=== PATIENT | male | born 1960 | race African-American/Black ===

== ENCOUNTER 2020-06-29 14:29 | Observation (INO) | payer OTHER, SELFPAY ==
[2020-06-29] VITALS (8 sets, daily range): BP systolic 127–175; BP diastolic 78–113; PULSE 75–106; RESP 16–20; TEMP 36.5–36.7; O2SAT 96–99; BMI 29.2; BMI 34.2
--- NOTE | 2020-06-29 14:42 | CT_ITS ---
Procedure: CT ABDOMEN PELVIS W CON Referring Doctor: Vikas Conde Patient Age:60Y CLINICAL INDICATION: ABD PAIN rectal bleeding History of prostate cancer COMPARISON: CT ABDPELW/O CT ABD PELVIS W/O CONTRAST from 10/08/2016 CT ABDPELW/O CT ABD PELVIS W/O CONTRAST from 06/07/2017 TECHNIQUE: IV contrast-75 cc Isovue 370 injected no oral contrast utilized. The Axial images obtained with sagittal and coronal reformats. All CT scans at the facility use one or more dose reduction, viz: automated exposure control, ma/kV adjustment per patient size (including targeted exams where dose is matched to indication, i.e. head), or iterative reconstruction technique. FINDINGS: Lower thorax: No acute finding ABDOMEN: Liver: No masses or biliary dilatation. 17 mm round low-density area the left lobe near its junction with the right lobe, axial image 26. I believe was present on 2017 studies with little change, thus favor likely a benign entity. Gallbladder: Surgically removed Common duct normal diameter with no stone evident s. Pancreas: No masses or peripancreatic fluid collections. Spleen: Borderline splenomegaly with spleen approximate 14 cm in length but with fairly normal AP dimension Adrenals: unremarkable Kidneys/ureters: Multiple modest size benign-appearing renal cysts bilaterally most notable at the left kidney Left kidney: Upper pole 20 mm and 16 mm cyst; midportion 20 mm cyst anteriorly and 24 mm cyst posteriorly; smaller cysts are seen at the lower pole Right kidney a 16 mm cyst off the lower pole with some very tiny barely evident cyst elsewhere. There may be a just over 1 mm nonobstructive calculus at upper pole axial image 48 Tiny metallic radiopaque markers or seeds at region of prostate, new since 2017 Bladder: Mild diffuse bladder wall thickening. Could reflect a cystitis-warrants correlation with urinalysis. ------- GI tract Stomach upper normal wall thickness at stomach most likely reflects lack of distension. Duodenal loop of satisfactory. Small-bowel. Moderate fluid throughout the small bowel with scattered small air-fluid levels but nonspecific but Appendix identified and normal. Terminal ileum unremarkable. Large bowel. Areas of upper normal wall thickness at the colon particularly here at the right colon but most likely reflects lack of distension. Colonic diverticulosis. Scattered diverticuli are seen throughout the colon including transverse colon, descending. colon and rectosigmoid. No evidence acute diverticulitis Peritoneum: No abnormal fluid collections. No obvious inflammatory changes. No free air. Lymph nodes: No enlarged lymph nodes apparent. Vasculature: No evidence of abdominal aortic aneurysm. No retroperitoneal hemorrhage evident. Bones: No blastic metastatic lesions There are progressive degenerative changes spine a specifically note additional sclerosis and subchondral cystic changes about the narrowed L5/S1 disc and L4/5 disc Progressive degenerative subchondral cystic changes about degenerated joints hips Soft tissues. A 10 mm nodule is seen subcutaneous tissues overlying the right abdominal wall axial image 63 IMPRESSION: 1.. Diffuse bladder wall thickening. Could reflect cystitis-warrants correlation urinalysis 2. Metallic seeds or markers region of prostate reflecting form of radiation prostate cancer therapy (which could also conceivably contribute to bladder wall thickening but). No associated pelvic or retroperitoneal adenopathy. 3. Note 17 mm round low-density area near junction of left and a right lobe of liver.Tend to favor this is a benign entity but may benefit from follow-up. Similar. Smaller area was seen on ol
--- NOTE | 2020-06-29 14:58 | HMH.EDGENADL ---
ED Disposition Clinical Impression: Rectal bleeding Disposition: Admitted as Observation Condition on Discharge: Good Referrals: Gibson Delgadillo MD [Primary Care Provider] - - Critical Care Critical Care Time: No Attestation: On 06/29/20, the high probability of a clinically significant, sudden or life threatening deterioration of the following system(s) required my full and direct attention, intervention and personal management. The time I documented below is in addition to time spent performing reported procedures but includes the following listed in this critical care notation. Medical Decision Making - Seevrino Inquiry Pt receiving controlled substance: Yes Severino was queried for this patient: No Reason not queried -: Emergent pt cond-no time Risks and benefits of using a controlled substance: were not discussed with pt by me Vital Signs: 06/29/20 14:29 06/29/20 14:50 06/29/20 15:02 Temperature 98 F Temperature Source Oral Pulse Rate [Radial] 94 H 106 H 94 H Respiratory Rate 18 20 18 Blood Pressure [Right Arm] 175/113 H 175/112 H 143/96 H Blood Pressure Mean [Right Arm] 133 133 111 Blood Pressure Source [Right Arm] Automatic Cuff Blood Pressure Position [Right Arm] Sitting Sitting 02 Sat by Pulse Oximetry 98 98 98 Oxygen Delivery Method Room Air 06/29/20 16:30 06/29/20 17:05 Temperature Temperature Source Pulse Rate [Radial] 86 81 Respiratory Rate 20 18 Blood Pressure [Right Arm] 134/83 127/91 H Blood Pressure Mean [Right Arm] 100 103 Blood Pressure Source [Right Arm] Automatic Cuff Automatic Cuff Blood Pressure Position [Right Arm] Sitting Sitting 02 Sat by Pulse Oximetry 96 97 Oxygen Delivery Method Room Air - Lab Data Lab Results 06/29/20 14:45: WBC 3.9 L, RBC 4.80, Hgb 15.0, Hct 43.2, MCV 90.1, MCH 31.2, MCHC 34.6, RDW 13.3, Plt Count 213, MPV 7.6, Neut % (Auto) 50.0, Lymph % (Auto) 41.1, [place] % (Auto) 7.2, Eos % (Auto) 1.0, Baso % (Auto) 0.7, Neut # (Auto) 2.0, Lymph # (Auto) 1.6, [place] # (Auto) 0.3, Eos # (Auto) 0.0, Baso # (Auto) 0.0 06/29/20 14:45: Sodium 139, Potassium 4.6, Chloride 101, Carbon Dioxide 30, Anion Gap 12.6, BUN 23 H, Creatinine 1.30 H, Estimated Creat Clear 79, Estimated GFR 56 L, Est GFR ( Amer) 68, Glucose 106 H, Calcium 10.6 H, Total Bilirubin 0.7, AST 37, ALT 37, Alkaline Phosphatase 155 H, Total Protein 10.1 H, Albumin 4.9, Globulin 5.2 H, Albumin/Globulin Ratio 0.9 L, Amylase 96, Lipase 126 06/29/20 15:08: Stool Occult Blood Negative 06/29/20 15:20: Urine Color Yellow, Urine Appearance Clear, Urine pH 6.0, Ur Specific [place] 1.025, Urine Protein 2+, Urine Glucose (UA) Negative, Urine Ketones Negative, Urine Blood Trace-i, Urine Nitrate Negative, Urine Bilirubin Negative, Urine Urobilinogen 0.2, Ur Leukocyte Esterase Negative, Urine WBC Occasional, Ur Squamous Epith Cells Occasional, Urine Bacteria Trace Result diagrams: 06/29/20 14:45 06/29/20 14:45 Orders (Tests/Meds): ED MEDICATIONS Discontinued Medications Generic Name Dose Route Start Last Admin Trade Name Freq PRN Reason Stop Dose Admin Iopamidol 75 ml 06/29/20 15:41 06/29/20 15:41 Iopamidol-370 (76%);100ml Bottle IV 06/29/20 15:42 75 ml ONCE ONE Administration Morphine Sulfate 4 mg 06/29/20 15:10 06/29/20 15:22 Morphine 4mg/Ml Syringe IV 06/29/20 15:11 4 mg ONCE ONE Administration Ondansetron HCl 4 mg 06/29/20 15:10 06/29/20 15:22 Ondansetron 4mg/2ml Vial IV 06/29/20 15:11 4 mg ONCE ONE Administration Sodium Chloride 10 ml 06/29/20 15:41 06/29/20 15:41 Sodium Chloride 0.9% 10ml Syr (Rad Only) IV 06/29/20 15:42 10 ml ONCE ONE Administration ORDERS Category Date Time Status CT abdomen pelvis w con Stat Cat Scan 06/29/20 14:42 Taken Covid-19 IgG/IgM ([facility]) Routine Lab 06/29/20 17:47 Ordered Diarrhea 6-11 Panel, Cdiff PCR Stat Lab 06/29/20 15:14 Ordered - CT Data CT Scan: Abdomen, Pelvis Time Received: 16:15 (vRad fa
[2020-06-29 14:59] LABS: Basophils % 0.7 % (0.1-2.0); Hematocrit 43.2 % (42.0-52.0); Lymphocytes # 1.6 K/mm3 (0.7-4.5); Lymphocytes % 41.1 % (10-50); Mean Corpuscular HGB Conc 34.6 g/dL (31.8-35.4); Mean Corpuscular Hemoglobin 31.2 pg (27.0-31.2); Mean Corpuscular Volume 90.1 fl (80-94); Mean Platelet Volume 7.6 fl (7.4-10.4); Monocytes # 0.3 K/mm3 (0.1-1.0); Monocytes % 7.2 % (1.7-9.3); Platelet Count 213 K/mm3 (142-424); Red Cell Distribution Width 13.3 % (11.5-17.5); White Blood Count 3.9 K/mm3 (4.8-10.8)
[2020-06-29 15:07] LABS: Chloride 101 mmol/L (98-107); Potassium 4.6 mmoL/L (3.5-5.1); Sodium 139 mmol/L (136-145)
[2020-06-29 15:09] LABS: Amylase 96 U/L (30-110); Blood Urea Nitrogen 23 mg/dl (9-20); Creatinine Clearance Estimated 79 mL/min (50-200); Estimated Glomerular Filt Rate 56 ml/min (>60); GFR (African American) 68 ML/MIN (>60)
[2020-06-29 15:10] LABS: Alanine Aminotransferase 37 U/L (12-78); Albumin Level 4.9 g/dl (3.5-5.0); Albumin/Globulin Ratio 0.9 (1.1-1.8); Alkaline Phosphatase 155 U/L (38-126); Anion Gap 12.6 mEq/L (5-15); Aspartate Amino Transferase 37 U/L (17-59); Bilirubin,Total 0.7 mg/dl (0.2-1.3); Calcium 10.6 mg/dl (8.4-10.2); Carbon Dioxide 30 mmol/L (22.0-30.0); Globulin 5.2 g/dL (1.3-3.2); Glucose 106 mg/dl (74-100); Lipase 126 U/L (23-300); Total Protein,Serum 10.1 g/dl (6.3-8.2)
[2020-06-29 15:35] LABS: Microscopic, Urine URINE MICROSCOPIC (MICROSCOPIC)
[2020-06-29 15:36] LABS: Appearance,Urine CLEAR (Clear); Bilirubin,Urine Negative (Negative); Blood, Urine TRACE-I (Negative); Color,Urine YELLOW (Yellow); Glucose,Urine (UA) Negative (Negative); Ketones,Urine Negative (Negative); Leukocyte Esterase,Urine Negative (Negative); Nitrate,Urine Negative (Negative); Protein,Urine 2+ (Negative); Specific Gravity, Urine 1.025 (1.005-1.030); Urobilinogen,Urine 0.2 EU/dl (0.2)
[2020-06-29 15:55] LABS: Occult Blood,Stool Negative (Negative)
[2020-06-29 16:11] LABS: Bacteria,Urine Trace /lpf; Squamous Epithelial Cell,Urine Occasional #/hpf (0-5); WBC,Urine Occasional #/hpf (0-3)
--- NOTE | 2020-06-29 16:25 | PC.NURSE ---
FAMILY AT BEDSIDE UPDATED ON PLAN OF CARE
--- NOTE | 2020-06-29 17:51 | PC.NURSE ---
Dr Conde spoke with Dr Koehler
--- NOTE | 2020-06-29 19:29 | P.CONPHA_ITS ---
[facility] Pharmacy VTE Monitoring - Patient Demographics Admission date: 06/29/20 Report Date: 06/29/20 Time: 19:29 Allergies/Adverse Reactions: Patient Allergies Penicillins [PENICILLINS] Allergy (Intermediate, Verified 06/29/20 18:14) I-RASH Height: 1.8 m Weight: 95.254 kg Patient Problems: Current Active Problems Rectal bleeding (Acute) - VTE Risk Labs: VTE Related Lab Results Hgb 15.0 g/dL (14.1-18.0) 06/29/20 14:45 Hct 43.2 % (42.0-52.0) 06/29/20 14:45 Plt Count 213 K/mm3 (142-424) 06/29/20 14:45 BUN 23 mg/dl (9-20) H 06/29/20 14:45 Creatinine 1.30 mg/dl (0.66-1.25) H 06/29/20 14:45 Estimated Creat Clear 79 mL/min (50-200) 06/29/20 14:45 Clinical Trial Participant: No - Prophylaxis VTE Prophylaxis Ordered?: Yes Types of VTE Prophylaxis: TEDS Knee High
[2020-06-29 19:49] LABS: Coronavirus 19 IgG Antibody Negative (Negative); Coronavirus 19 IgM Antibody Negative (Negative)
--- NOTE | 2020-06-29 20:18 | PC.NURSE ---
PT ARRIVED TO FLOOR AT 2013
--- NOTE | 2020-06-29 21:42 | PC.NURSE ---
unable to complete med rec due to pt unable to tell what meds he is on
[2020-06-30] VITALS (15 sets, daily range): BP systolic 90–147; BP diastolic 49–95; PULSE 63–86; RESP 18–22; TEMP 36.2–36.8; O2SAT 93–99; BMI 34.2
--- NOTE | 2020-06-30 04:33 | PC.NURSE ---
Pt A&OX4. lungs CTA. pt NPO for consult this AM. pt reports no BM or rectal bleeding since coming to floor. pt has been medicated for pain x2 per MAR this shift.
--- NOTE | 2020-06-30 07:12 | HMH.GSCON ---
*Admission Date: 06/29/20 *Reason for consult:: Blood per rectum *History of present illness: This is a 60-year-old gentleman seen in consultation from the service of Dr. Delgadillo regarding bright red blood per rectum. He presented overnight to the emergency department after noticing what he describes as 3 episodes of blood in the toilet. Initial descriptions were apparently of a fairly large amount; however, he currently describes a small amount of blood 3 different times . His initial evaluation included a CBC and an occult blood study. His hemoglobin was 15 and his occult blood study was negative. He also describes sharp and crampy pain throughout the mid abdomen. He states that has been quite a few years since his last colonoscopy. Review of Systems - Constitutional Denies chills - Eyes Denies change in vision - ENT Denies difficulty swallowing - *Cardiovascular Denies chest pain - *Respiratory Denies cough - *Gastrointestinal Reports abdominal pain, Reports bright, red blood in stools - *Genitourinary Denies blood in urine - *Musculoskeletal Denies numbness - Integumentary/Breasts Denies new lesions - *Neurologic Denies confusion - Psychiatric Denies anxiety - Endocrine Denies cold intolerance - Hematologic/Lymphatic Denies easy bleeding - Allergic/Immunologic Denies wheezing [facility] History Medical History: Reports:: Cancer (prostate), Diabetes Mellitus Type 2, Hypertension Denies:: Diabetes Mellitus Type 1 *Have you ever received a pneumonia vaccine?: Yes *Have you received a flu vaccine this season?: Yes Other Surgeries: Yes: Cholecystectomy, Hernia Repair - *Social History Smoking Status: Current every day smoker # Packs/Day (cigarettes): 1 Alcohol Intake: former Alcohol Intake Frequency:: other Substance Use Type: marijuana, crack/cocaine, heroin, methamphetamine Last Used Substance: unknown *Occupational Status:: retired, disabled Housing: apartment *Travel in the last 8 weeks: None Family Hx:: Unable to obtain Meds Home Medications Medication Instructions Recorded Confirmed Type Unobtainable 06/29/20 06/29/20 History Allergies Allergy/AdvReac Type Severity Reaction Status Date / Time Penicillins [PENICILLINS] Allergy Intermediate I-RASH Verified 06/29/20 18:14 Exam Vital signs and Labs for Last 24 Hours: Temp Pulse Resp BP Pulse Ox 98.1 F 86 18 144/89 H 97 06/30/20 04:00 06/30/20 04:00 06/30/20 04:00 06/30/20 04:00 06/30/20 04:00 Laboratory Results - last 24 hr 06/29/20 14:45: WBC 3.9 L, RBC 4.80, Hgb 15.0, Hct 43.2, MCV 90.1, MCH 31.2, MCHC 34.6, RDW 13.3, Plt Count 213, MPV 7.6, Neut % (Auto) 50.0, Lymph % (Auto) 41.1, [place] % (Auto) 7.2, Eos % (Auto) 1.0, Baso % (Auto) 0.7, Neut # (Auto) 2.0, Lymph # (Auto) 1.6, [place] # (Auto) 0.3, Eos # (Auto) 0.0, Baso # (Auto) 0.0 06/29/20 14:45: Sodium 139, Potassium 4.6, Chloride 101, Carbon Dioxide 30, Anion Gap 12.6, BUN 23 H, Creatinine 1.30 H, Estimated Creat Clear 79, Estimated GFR 56 L, Est GFR ( Amer) 68, Glucose 106 H, Calcium 10.6 H, Total Bilirubin 0.7, AST 37, ALT 37, Alkaline Phosphatase 155 H, Total Protein 10.1 H, Albumin 4.9, Globulin 5.2 H, Albumin/Globulin Ratio 0.9 L, Amylase 96, Lipase 126 06/29/20 14:45: SARS-CoV-2 IgG Ab (Rapid) Negative, SARS-CoV-2 IgM Ab (Rapid) Negative 06/29/20 15:08: Stool Occult Blood Negative 06/29/20 15:20: Urine Color Yellow, Urine Appearance Clear, Urine pH 6.0, Ur Specific [place] 1.025, Urine Protein 2+, Urine Glucose (UA) Negative, Urine Ketones Negative, Urine Blood Trace-i, Urine Nitrate Negative, Urine Bilirubin Negative, Urine Urobilinogen 0.2, Ur Leukocyte Esterase Negative, Urine WBC Occasional, Ur Squamous Epith Cells Occasional, Urine Bacteria Trace I & O for Last 24 hours: Intake & Output 06/27/20 06/28/20 06/29/20 06/30/20 11:59 11:59 11:59 11:59 Intake Total 1504 / 1504 Output Total 1150 / 1150 Balance 354 / 354
[2020-06-30 07:26] LABS: Eosinophils # 0.1 K/mm3 (0.0-0.4); Eosinophils % 1.9 % (0.1-12.0); Lymphocytes % 42.7 % (10-50); Mean Corpuscular HGB Conc 33.9 g/dL (31.8-35.4); Mean Corpuscular Hemoglobin 30.5 pg (27.0-31.2); Mean Platelet Volume 7.1 fl (7.4-10.4); Monocytes # 0.2 K/mm3 (0.1-1.0); Monocytes % 7.1 % (1.7-9.3); Neutrophils # 1.1 K/mm3 (1.8-7.8); Neutrophils % 47.3 % (37.0-80.0); Platelet Count 167 K/mm3 (142-424); Red Blood Count 4.12 M/mm3 (4.60-6.20); Red Cell Distribution Width 12.4 % (11.5-17.5); White Blood Count 2.4 K/mm3 (4.8-10.8)
[2020-06-30 07:58] LABS: Hemoglobin 12.5 g/dL (14.1-18.0)
[2020-06-30 08:25] LABS: Chloride 104 mmol/L (98-107); Sodium 135 mmol/L (136-145)
[2020-06-30 08:26] LABS: Potassium 4.2 mmoL/L (3.5-5.1)
[2020-06-30 08:28] LABS: Blood Urea Nitrogen 22 mg/dl (9-20); Creatinine Clearance Estimated 120 mL/min (50-200); Estimated Glomerular Filt Rate 86 ml/min (>60); GFR (African American) 103 ML/MIN (>60)
[2020-06-30 08:29] LABS: Anion Gap 12.2 mEq/L (5-15); Calcium 9.8 mg/dl (8.4-10.2); Carbon Dioxide 23 mmol/L (22.0-30.0); Glucose 106 mg/dl (74-100)
--- NOTE | 2020-06-30 09:01 | HMH.PHAINT ---
MEDICATION RECONCILIATION COMPLETED ON PATIENT BY CALLING [facility] AND OBTAINING LIST FROM PHARMACY. -KAREEM NAM, SHANTID
--- NOTE | 2020-06-30 11:20 | HMH.ANESCL ---
[facility] Anesthesia Checklist - Patient Identification Patient Identification: Arm Band, Verbal (Name & ) - Structural Data Admitted From: Inpatient Planned Operative Procedure/s: EGD Consent for Planned Operative Procedure(s) Verified: Yes Verified Documents: Surgical Consent, History and Physical - Chart Verification Results Verified: CBC, BMP - Additional verifications Anesthesia Reactions: No - Airway Assessment C-Spine Mobility Assessed: Yes TMJ Mobility Assessed: Yes Dentition: Edentulous - Neurological Assessment Level of Consciousness: Awake, Alert, Appropriate, Follows Commands Hx Seizures: No Numbness or tingling in extremities: Yes - Anesthesia Plan Anesthesia Risk discussed: Yes Anesthesia Plan: Verified ASA Class: III Anesthesia Type: MAC [facility] History I have reviewed the patient's past medical history: Yes Medical History: Reports:: Cancer (prostate), Chronic Obstructive Pulmonary Disease (COPD), Diabetes Mellitus Type 2, Gastroesophageal Reflux Disease(GERD), Hypertension Denies:: Diabetes Mellitus Type 1 *Have you ever received a pneumonia vaccine?: Yes *Have you received a flu vaccine this season?: Yes Comment:: obesity Anesthesia experience/problems:: None Other Surgeries: Yes: Cholecystectomy, Hernia Repair - *Social History Smoking Status: Current every day smoker # Packs/Day (cigarettes): 1 Alcohol Intake: former Alcohol Intake Frequency:: other Substance Use Type: marijuana, crack/cocaine, heroin, methamphetamine Last Used Substance: unknown *Occupational Status:: retired, disabled Housing: apartment *Travel in the last 8 weeks: None Family Hx:: Unable to obtain
--- NOTE | 2020-06-30 11:44 | P.PCN_ITS ---
- Procedure: Date: 06/30/20 Patient Date of :: 1960 Procedure Performed:: Esophagogastroduodenoscopy with biopsy Indications:: Epigastric pain Performing Provider:: Shane Novoa MD Referring Provider:: Drs. Delgadillo and Rodo Sedation:: Monitored anesthesia care Procedure:: After informed consent was obtained the patient was taken to the endoscopy suite. Sedation ensued after the patient was transferred to the left lateral decubitus position. Pulse, blood pressure, and oxygen saturation were monitored throughout the procedure. The endoscope was advanced beyond the duodenal bulb. Retroflexion within the gastric lumen was accomplished. The gastroscope was carefully removed and the patient was transferred to recovery in stable conditio n. Please see findings and specimens below for detail. Findings:: Gastroesophageal junction at 42 cm Mild gastritis at gastroesophageal junction Mild streaking gastritis Hyperplastic-appearing polyps along duodenal bulb/duodenal sweep Specimens:: Antral biopsy Multiple biopsies of duodenal bulb/duodenal sweep polyps Recommendations:: Follow-up pathology Proton pump inhibition Complications:: No immediate Estimated blood obtained (mL): 1
[2020-06-30 14:38] LABS: Hematocrit 38.8 % (42.0-52.0)
[2020-06-30 14:49] LABS: Hemoglobin 14.1 g/dL (14.1-18.0)
--- NOTE | 2020-06-30 15:04 | HMH.HPDC ---
General - General Admission date:: 06/29/20 Discharge date: 06/30/20 *Admission Date: 06/29/20 *Chief complaint: Abdominal Pain *History of present illness: 60-year-old male patient presented to the emergency department after complaints of left lower quadrant abdominal pain and one episode of bright red blood in toilet after bowel movement. He does report of a prior history of rectal bleeding. He also finished radiation for prostate cancer 2 months ago, during treatment he never had any bright red blood per rectum or any other associated complaints. The patient is treated through the [place] and [place] treatments through [facility] in [facility]. He denies any nausea/vomiting. He reports calling the [place] and the [place] instructed him to go to the nearest facility Developed left lower quadrant abdominal pain and bright red rectal bleeding this afternoon. One episode of bleeding that filled the toilet. Associated with diarrhea. Denies prior history of rectal bleeding. Just recently finished radiation for prostate cancer that was diagnosed last year. The patient was being treated through the [facility] and having his treatments at the [facility] in [place]. He thinks that he has had a colonoscopy at the [facility] many years ago. No vomiting or hematemesis. The patient says he always sweats, did not take his temperature at home Per Dr. Conde). In the emergency department hemoglobin/hematocrit 15/43.2, BUN 23 creatinine 1.3. And a Hemoccult blood negative 06/29/20 Abd/Pelvis CT: FINDINGS: Lower thorax: No acute finding ABDOMEN: Liver: No masses or biliary dilatation. 17 mm round low-density area the left lobe near its junction with the right lobe, axial image 26. I believe was present on 2017 studies with little change, thus favor likely a benign entity. Gallbladder: Surgically removed Common duct normal diameter with no stone evident s. Pancreas: No masses or peripancreatic fluid collections. Spleen: Borderline splenomegaly with spleen approximate 14 cm in length but with fairly normal AP dimension Adrenals: unremarkable Kidneys/ureters: Multiple modest size benign-appearing renal cysts bilaterally most notable at the left kidney Left kidney: Upper pole 20 mm and 16 mm cyst; midportion 20 mm cyst anteriorly and 24 mm cyst posteriorly; smaller cysts are seen at the lower pole Right kidney a 16 mm cyst off the lower pole with some very tiny barely evident cyst elsewhere. There may be a just over 1 mm nonobstructive calculus at upper pole axial image 48 Tiny metallic radiopaque markers or seeds at region of prostate, new since 2017 Bladder: Mild diffuse bladder wall thickening. Could reflect a cystitis-warrants correlation with urinalysis. ------- GI tract Stomach upper normal wall thickness at stomach most likely reflects lack of distension. Duodenal loop of satisfactory. Small-bowel. Moderate fluid throughout the small bowel with scattered small air-fluid levels but nonspecific but Appendix identified and normal. Terminal ileum unremarkable. Large bowel. Areas of upper normal wall thickness at the colon particularly here at the right colon but most likely reflects lack of distension. Colonic diverticulosis. Scattered diverticuli are seen throughout the colon including transverse colon, descending. colon and rectosigmoid. No evidence acute diverticulitis Peritoneum: No abnormal fluid collections. No obvious inflammatory changes. No free air. Lymph nodes: No enlarged lymph nodes apparent. Vasculature: No evidence of abdominal aortic aneurysm. No retroperitoneal hemorrhage evident. Bones: No blastic metastatic lesions There are progressive degenerative changes spine a specifically note additional sclerosis and subchondral cystic changes about the narrowed L5/S1 disc and L4/5 disc Progressive degenerative subchondral cystic changes about degenerated ximena
== END 2020-06-30 16:11 | disposition home or self-care (01) ==
LOC: ER 17:53 → 2ND 19:33
PROVIDERS: Nurse Practitioner Family; Surgery; Admitting Provider Family Medicine; Emergency Provider Emergency Medicine; PCP Emergency Medicine; Visit Provider Emergency Medicine
PROC: 0DJ08ZZ Inspection of Upper Intestinal Tract, Via Natural or Artificial Opening Endoscopic (ICD-10-PCS; CPT 43235; principal; 2020-06-30 13:00)
DX: K62.5 Hemorrhage of anus and rectum (principal); R10.816 Epigastric abdominal tenderness; E11.9 Type 2 diabetes mellitus without complications; I10 Essential (primary) hypertension; N17.9 Acute kidney failure, unspecified; J44.9 Chronic obstructive pulmonary disease, unspecified; Z79.4 Long term (current) use of insulin; Z79.52 Long term (current) use of systemic steroids; Z79.899 Other long term (current) drug therapy; C61 Malignant neoplasm of prostate; K31.7 Polyp of stomach and duodenum; K29.70 Gastritis, unspecified, without bleeding; R10.13 Epigastric pain
CPT/HCPCS: 43239; 36415; 74177; 80048; 80053; 81001; 82150; 82272; 83690; 85014; 85018; 85025; 86328; 88305; 96374; 96375; 96376; 99284; G0328; G0378; J2405; Q9967

== ENCOUNTER → 2020-07-14 14:51 | Outpatient (CLI) | payer OTHER, SELFPAY ==
--- NOTE | 2020-07-14 14:54 | XR_ITS ---
PROCEDURE: XR KNEE RT 4V CLINICAL INDICATION: knee pain COMPARISON: No exams were available for comparison FINDINGS: No fracture or dislocation. No lytic or blastic change. There is normal mineralization. There are minimal osteoarthritic changes at the medial and lateral compartment with minimal osteophytes and small osteophytes at the tibial spine. Other findings:Vascular calcification IMPRESSION: Minimal osteoarthritic change Dictated by: Zain Meyer MD 07/14/2020 16:01 Zain Meyer MD in [place] 07/14/2020 16:01
== END ==
PROVIDERS: PCP Emergency Medicine; Visit Provider Nurse Practitioner Family
DX: M25.561 Pain in right knee (principal)
CPT/HCPCS: 73564

== ENCOUNTER → 2020-07-16 14:27 | Outpatient (CLI) | payer OTHER, SELFPAY ==
[2020-07-16 16:15] LABS: Basophils % 0.7 % (0.1-2.0); Eosinophils % 0.6 % (0.1-12.0); Hematocrit 40.4 % (42.0-52.0); Hemoglobin 14.2 g/dL (14.1-18.0); Lymphocytes # 1.3 K/mm3 (0.7-4.5); Lymphocytes % 31.9 % (10-50); Mean Corpuscular HGB Conc 35.2 g/dL (31.8-35.4); Mean Corpuscular Hemoglobin 31.4 pg (27.0-31.2); Mean Corpuscular Volume 89.1 fl (80-94); Mean Platelet Volume 8.7 fl (7.4-10.4); Monocytes # 0.3 K/mm3 (0.1-1.0); Monocytes % 8.1 % (1.7-9.3); Neutrophils # 2.5 K/mm3 (1.8-7.8); Neutrophils % 58.7 % (37.0-80.0); Platelet Count 185 K/mm3 (142-424); Red Blood Count 4.53 M/mm3 (4.60-6.20); Red Cell Distribution Width 13.3 % (11.5-17.5); White Blood Count 4.2 K/mm3 (4.8-10.8)
[2020-07-16 16:22] LABS: Chloride 106 mmol/L (98-107); Potassium 4.2 mmoL/L (3.5-5.1); Sodium 139 mmol/L (136-145)
[2020-07-16 16:24] LABS: Alanine Aminotransferase 34 U/L (12-78); Albumin Level 4.6 g/dl (3.5-5.0); Albumin/Globulin Ratio 1.1 (1.1-1.8); Alkaline Phosphatase 143 U/L (38-126); Aspartate Amino Transferase 32 U/L (17-59); Bilirubin,Total 0.7 mg/dl (0.2-1.3); Blood Urea Nitrogen 20 mg/dl (9-20); Estimated Glomerular Filt Rate 68 ml/min (>60); GFR (African American) 82 ML/MIN (>60); Globulin 4.2 g/dL (1.3-3.2); Total Protein,Serum 8.8 g/dl (6.3-8.2)
[2020-07-16 16:25] LABS: Calcium 10.3 mg/dl (8.4-10.2); Chol/HDL Ratio 4.8 (1-3.5); Cholesterol 245 mg/dl (140-200); Glucose 108 mg/dl (74-100); HDL Cholesterol 51 mg/dl (40-60); Triglycerides 379 mg/dl (30-150); VLDL Cholesterol 76 mg/dL (0-40)
[2020-07-16 16:42] LABS: T4 (Thyroxine) 8.3 ug/dl (5.53-11.0)
[2020-07-16 16:44] LABS: 25-OH Vitamin D, Total 13.9 ng/mL (30-100)
[2020-07-16 16:54] LABS: Erythrocyte Sedimentation Rate 76 mm/hr (0-20)
[2020-07-16 16:55] LABS: Thyroid Stimulating Hormone 1.63 uIU/mL (0.465-4.68)
[2020-07-16 17:10] LABS: Hemoglobin A1C 4.6 % (4.0-6.0)
[2020-07-16 17:19] LABS: Creatinine,Urine Random 181 mg/dL (Not Estab.)
[2020-07-16 17:59] LABS: Prostate Specific Ag Screen < 0.1 ng/ml (0.0-4.0)
[2020-07-16 18:21] LABS: Microalbumin/Creatinine Ratio 81.8
[2020-07-16 18:25] LABS: Anion Gap 13.2 mEq/L (5-15); Carbon Dioxide 24 mmol/L (22.0-30.0)
== END ==
PROVIDERS: Visit Provider Nurse Practitioner Family
DX: E11.9 Type 2 diabetes mellitus without complications (principal); I10 Essential (primary) hypertension; J44.9 Chronic obstructive pulmonary disease, unspecified; Z12.5 Encounter for screening for malignant neoplasm of prostate; Z79.4 Long term (current) use of insulin; E55.9 Vitamin D deficiency, unspecified; Z79.899 Other long term (current) drug therapy
CPT/HCPCS: 80053; 80061; 82043; 82306; 82570; 83036; 84436; 84443; 85025; 85651; G0103

== ENCOUNTER → 2020-07-21 10:18 | Outpatient (CLI) | payer OTHER, SELFPAY ==
--- NOTE | 2020-07-21 10:20 | CA_ITS ---
APPROVED REPORT EXAM: Comprehensive 2D, Doppler, and color-flow Echocardiogram Unemployment Inspector: Yvonne Bhardwaj [facility], RVS Ht: 5 ft 11 in Wt: 255lbs BSA: 2.34 BP: 148/90 mmHg Indications: HTN, DM, Edema, COPD, Smoker, SOB Echo Enhancing Agent Comments: Technically difficut exam due to large body habitus with attenuation 2D Dimensions IVSd 0.96 cm LVEF (Visual) 54.60 % PWd 0.80 cm LVDd 4.80 cm LVDs 3.44 cm Aortic Root 3.45 cm LVOT 2.09 cm (M/F) 1.5-2.5 M-Mode Dimensions RVDd 2.05 cm (0.9-2.6) LA Diam 4.04 cm (1.9-4.0) LVDd 5.05 cm (3.5-5.7) Ao Diam 3.65 cm (2.0-3.7) IVSd 0.99 cm (0.6-1.1) PWd 1.10 cm (0.6-1.1) EPSs 0.76 cm EDV (Teich) 121.00 mL LV Diastology E Decel Time 247.00 (160-240 msec) E/A Ratio 0.68 MED E' 4.50 (< 7 cm/sec) MED A' 8.40 cm/s E'/MED E' Ratio 13.18 (>14) LAT E' 6.70 (<10 cm/sec) LAT A' 8.90 cm/s E/LAT E' Ratio 8.85 (>14) Aortic Valve AI PHT 482.00 ms AO Peak GR. 7.20 mmHg Mitral Valve MV A Velocity 88.00 (40-130 cm/s) E/A Ratio 0.68 MV Decel. Time 247.00 (160-240 ms) Pulmonary Valve PV Peak Velocity 85.00 (50-150 cm/s) Tricuspid Valve TR P. Velocity 152.00 cm/s RAP Estimate 10.00 mmHg RVSP 19.20 mmHg Left Ventricle Tremors mildly enlarged, left ventricle is normal size, mild concentric left ventricular hypertrophy, visually estimated ejection fraction 55% with no regional wall motion abnormality, grade 1 diastolic dysfunction seen without tissue Doppler evidence of raise left atrial pressure. Right Ventricle Right atrium and right ventricle are normal size and contractility. Aortic Valve Aortic valve is minimally thickened and fibrosed, there is no aortic stenosis, there is trace aortic insufficiency. Mitral Valve Mitral valve is grossly normal, there is mild mitral regurgitation. Tricuspid Valve Tricuspid valve grossly normal, there is mild tricuspid regurgitation, tricuspid regurgitation jet velocity is inadequate for calculation of the right ventricular systolic pressure. Pulmonic Valve Pulmonic valve is poorly visualized. Great Vessels Aortic root is normal size. Pericardium No significant pericardial effusion noted. Conclusion 1. Mildly enlarged left atrium, normal left ventricular size, mild concentric left ventricular hypertrophy, visually estimated ejection fraction 55% with no regional wall motion abnormality, grade 1 diastolic dysfunction seen without tissue Doppler evidence of raise left atrial pressure. 2. Thickened and calcified aortic valve without aortic stenosis, there is trace aortic insufficiency. 3. Mild mitral and tricuspid regurgitation. 4. No significant pericardial effusion noted. Electronically signed by : Pascual Mike, 07/22/2020 15:47:18
== END ==
PROVIDERS: PCP Emergency Medicine; Visit Provider Nurse Practitioner Family
DX: R06.00 Dyspnea, unspecified (principal); R60.0 Localized edema; I10 Essential (primary) hypertension; Z72.0 Tobacco use
CPT/HCPCS: 93306

== ENCOUNTER → 2020-08-02 16:09 | Outpatient (CLI) | payer OTHER, SELFPAY ==
--- NOTE | 2020-08-02 16:18 | MR_ITS ---
PROCEDURE: MR KNEE RT WO CON CLINICAL INDICATION: right knee pain KNEE INSTABILITY. FALLING FREQUENTLY. ENTIRE KNEE PAIN X5-6YRS. PAIN WHEN FULLY EXTENDING. COMPARISON: CR XR KNEE RT 4V from 07/14/2020 TECHNIQUE: Routine multiplanar multi echo sequences are performed without gadolinium enhancement. FINDINGS: The cruciate ligaments appear intact. The collateral ligaments, and quadriceps tendon appears intact. There is some focal slight increased T1 and increased T2 signal involving the patellar tendon distally suggesting area tendinopathy/tendinosis. This could also be due to an old injury. Please correlate with clinical findings. The there may be a small radial tear involving the posterior horn of the medial meniscus. No other meniscal abnormalities are evident. There are mild osteoarthritic changes involving all 3 compartments. There is minimal thinning of the patellar cartilage. Small knee joint effusion is noted. There is a small area of subcortical decreased T1 and increased T2 signal involving the lateral aspect of the medial femoral condyle measuring 7 mm in with consistent with an area of osteochondrosis. IMPRESSION: 1. Questionable small radial tear of the posterior horn of the medial meniscus. 2. Mild osteoarthritic changes with small knee joint effusion. 3. Small area of osteochondrosis dissecans involving the lateral aspect of the medial femoral condyle Dictated by: Zain Meyer MD 08/03/2020 11:06 Zain Meyer MD in [place] 08/03/2020 11:06
== END ==
PROVIDERS: PCP Nurse Practitioner Family; Visit Provider Orthopaedic Surgery
DX: M25.561 Pain in right knee (principal)
CPT/HCPCS: 73721

== ENCOUNTER → 2020-08-05 10:06 | Outpatient (CLI) | payer OTHER, SELFPAY ==
--- NOTE | 2020-08-05 10:14 | XR_ITS ---
PROCEDURE: XR HIP RT 2-3V W/PELVIS CLINICAL INDICATION: RT knee pain Right hip pain radiating into the right knee, recent injury with pain COMPARISON: CT CT ABDOMEN PELVIS W CON from 06/29/2020 FINDINGS: There are moderate osteoarthritic changes of both hips as seen on the AP view of the pelvis. There is subchondral cystic changes within the acetabulum on both sides and in the femoral heads on both sides as well as the left femoral neck. No fracture or dislocation. There are degenerative changes in the lumbar spine with lumbar scoliosis convex left. A prominent subchondral cyst is present in the acetabular roof on the right measuring approximately 2 cm. Prostate seed implants are present. IMPRESSION: Moderate osteoarthritic changes with prominent subcortical cystic changes of both hips Dictated by: Zain Meyer MD 08/05/2020 12:59 Zain Meyer MD in [place] 08/05/2020 12:59
--- NOTE | 2020-08-05 10:14 | XR_ITS ---
PROCEDURE: XR CHEST 2V CLINICAL HISTORY: elevated alk phos. Shortness of air COMPARISON: CR CXR1 CHEST-PORTABLE from 07/14/2013 CR CXR1 CHEST-PORTABLE from 11/03/2013 CR CXR CHEST(2 VIEWS-NOT PORTABLE) from 04/01/2016 FINDINGS: The cardiomediastinal silhouette and pulmonary vascularity are within normal limits. The lungs are clear without infiltrates, suspicious nodules, or pleural effusions. No acute bony abnormalities. IMPRESSION: No acute findings. Dictated by: Zain Meyer MD 08/05/2020 13:01 Zain Meyer MD in [place] 08/05/2020 13:01
== END ==
PROVIDERS: PCP Nurse Practitioner Family; Visit Provider Orthopaedic Surgery
DX: Z01.818 Encounter for other preprocedural examination (principal); M25.561 Pain in right knee; R74.8 Abnormal levels of other serum enzymes; G89.29 Other chronic pain
CPT/HCPCS: 71046; 73502

== ENCOUNTER → 2020-08-25 12:21 | Outpatient (CLI) | payer OTHER, SELFPAY ==
--- NOTE | 2020-08-25 | CA_ITS ---
APPROVED REPORT Exam: Pharmacologic Technologist: Moriah Mckeon Ht: 5 ft 11 in Wt: 257 lbs BSA: 2.35 m2 HR: 66 bpm BP: 160/96 mmHg Indications: Shortness of Breath, Abnormal EKG Medical History Medications: Omeprazole,,,,, Simvastatin,,,,, Vitamin B12,,,,, Lisinopril/HCTZ,,,,, INSULIN,,,,, Albuterol,,,,, Ibuprofen,,,,, Vitamin D2,,,,, Stress Test Details Test: LEXISCAN HR Resting HR: 72 bpm Max Heart Rate (APMHR): 158 bpm Max HR Achieved: 118 bpm Target HR (85% APMHR): 134 bpm % of APMHR: 74 Recovery HR: 85 bpm BP Resting BP: 160.0/96.0 mmHg Max BP: 183.0/105.0 mmHg Recovery BP: 166.0/93.0 mmHg ECG Resting ECG: Normal sinus rhythm, early repolarization changes Clinical Exercise duration: 04:00 min Highest Stage Achieved: Exercise capacity: 1.0 METs Stress ECG Conclusion Symptoms: Mild stomach discomfort, headache. No chest pain. Arrhythmias/Ectopy: None ST-T Changes: No significant changes. Conclusion: Unremarkable Lexiscan stress. Myoview images reported separately. Test Summary REST . . . . . . . Resting REST 04:15 . . 72 . 160/ 96 . . Stage 1 . . . . . . . Myoview Injected Stage 1 01:00 . . 86 . . . . Stage 2 01:00 . . 111 . . . . Stage 3 01:00 . . 105 . 183/105 . . Stage 4 01:00 . . 94 . 164/101 . Stop exercise at 04:00 RECOVERY 01:00 . . 91 . 166/102 . . RECOVERY 02:00 . . 85 . 166/102 . . RECOVERY 03:00 . . 85 . 166/ 93 . . RECOVERY 03:20 . . 86 . 166/ 93 . . Electronically signed by : Pascual Mike, 08/26/2020 12:51:51
--- NOTE | 2020-08-25 12:21 | NM_ITS ---
APPROVED REPORT Exam: Nuclear Stress Test Indication: HTN, D.M., HYPERLIPIDEMIA, TOB USE, C.P., SOB Patient Location: Outpatient Stress Tech: Moriah Mckeon [place] Tech:DARLYN Benitez RT (R)(N)(M) Ht: 5 ft 11 in Wt: 250 lbs HR: 66 bpm BP: 160/96 mmHg BSA: 2.32 m2 BMI: 34.8 History: HTN, D.M., HYPERLIPIDEMIA, TOB USE, C.P., SOB Procedure: Patient received a 0.4 mg of intravenous Lexiscan, resting heart rate 66 bpm, resting blood pressure 160/96 mmHg, with Lexiscan maximum heart rate achived was 111 bpm which is Less than 85 % of the maximum predicted heart rate and blood pressure was 183/105 mmHg. With Lexiscan, patient denied any complaint of chest pain. Electrocardiogram Resting electrocardiogram shows sinus rhythm, with Lexiscan there is less than 1.[address] segment depression noted from the baseline EKG. The EKG portion of the Lexiscan is nondiagnostic. Cardiac Stress and Resting SPECT Images: Cardiac Stress and Resting SPECT images were obtained using technetium 99m Myoview 32.1 mCi stress and 10.65 mCi at rest. Gated SPECT for analysis of segmental wall motion and calculation of the ejection fraction also done. Prone images were also obtained. Cardiac stress and resting SPECT images show uniform myocardial activity without segmental perfusion abnormality, computer derived ejection fraction is 48% with no regional wall motion abnormality, right ventricle is normal size and contractility. Conclusion: 1. The EKG portion of the Lexiscan is nondiagnostic. 2. No scintigraphic evidence of reversible ischemia seen, computer derived ejection fraction is 48% with no regional wall motion abnormality, right ventricle is normal size and contractility. 3. Normal Lexiscan Myoview study. Electronically signed by : Pascual Mike, 08/26/2020 12:55:00
== END ==
PROVIDERS: PCP Nurse Practitioner Family; Visit Provider Nurse Practitioner Family
DX: Z01.810 Encounter for preprocedural cardiovascular examination (principal); R06.00 Dyspnea, unspecified; R94.31 Abnormal electrocardiogram [ECG] [EKG]
CPT/HCPCS: 78452; 93017; A9502; J2785

== ENCOUNTER → 2020-09-14 08:51 | Outpatient (CLI) | payer OTHER, SELFPAY ==
--- NOTE | 2020-09-14 09:06 | XR_ITS ---
PROCEDURE: XR HIP RT 2-3V W/PELVIS CLINICAL INDICATION: planning RT hip arthroplasty Pain COMPARISON: CR XR HIP RT 2-3V W/PELVIS from 08/05/2020 FINDINGS: AP view of the pelvis show severe osteoarthritic changes of both hips with subchondral cystic changes of the acetabular roof and femoral heads. Surgical planning device is present laterally. No acute fracture or dislocation. No lytic or blastic change. IMPRESSION: Severe osteoarthritis of the hips Dictated by: Zain Meyer MD 09/14/2020 16:33 Zain Meyer MD in [place] 09/14/2020 16:33
[2020-09-14 10:04] LABS: Eosinophils # 0.1 K/mm3 (0.0-0.4); Eosinophils % 1.5 % (0.1-12.0); Hematocrit 34.4 % (42.0-52.0); Hemoglobin 11.9 g/dL (14.1-18.0); Lymphocytes # 1.4 K/mm3 (0.7-4.5); Lymphocytes % 38.6 % (10-50); Mean Corpuscular HGB Conc 34.5 g/dL (31.8-35.4); Mean Corpuscular Volume 87.1 fl (80-94); Mean Platelet Volume 7.4 fl (7.4-10.4); Monocytes # 0.3 K/mm3 (0.1-1.0); Monocytes % 8.7 % (1.7-9.3); Neutrophils # 1.8 K/mm3 (1.8-7.8); Neutrophils % 50.1 % (37.0-80.0); Platelet Count 183 K/mm3 (142-424); Red Blood Count 3.95 M/mm3 (4.60-6.20); Red Cell Distribution Width 13.2 % (11.5-17.5); White Blood Count 3.6 K/mm3 (4.8-10.8)
[2020-09-14 10:39] LABS: Chloride 110 mmol/L (98-107); Potassium 4.6 mmoL/L (3.5-5.1); Sodium 138 mmol/L (136-145)
[2020-09-14 10:42] LABS: Alanine Aminotransferase 31 U/L (12-78); Albumin Level 4.4 g/dl (3.5-5.0); Albumin/Globulin Ratio 1.1 (1.1-1.8); Alkaline Phosphatase 145 U/L (38-126); Anion Gap 11.6 mEq/L (5-15); Aspartate Amino Transferase 35 U/L (17-59); Bilirubin,Total 0.6 mg/dl (0.2-1.3); Blood Urea Nitrogen 24 mg/dl (9-20); Calcium 9.8 mg/dl (8.4-10.2); Carbon Dioxide 21 mmol/L (22.0-30.0); Cholesterol 194 mg/dl (140-200); Estimated Glomerular Filt Rate 76 ml/min (>60); GFR (African American) 92 ML/MIN (>60); Globulin 3.9 g/dL (1.3-3.2); Glucose 111 mg/dl (74-100); Total Protein,Serum 8.3 g/dl (6.3-8.2); Triglycerides 398 mg/dl (30-150); VLDL Cholesterol 80 mg/dL (0-40)
[2020-09-14 10:43] LABS: Chol/HDL Ratio 5.2 (1-3.5); HDL Cholesterol 37 mg/dl (40-60)
[2020-09-14 10:54] LABS: Direct LDL Cholesterol 52.39 mg/dL (100-129)
[2020-09-14 10:59] LABS: T4 (Thyroxine) 7.1 ug/dl (5.53-11.0)
[2020-09-14 11:13] LABS: Thyroid Stimulating Hormone 5.73 uIU/mL (0.465-4.68)
== END ==
PROVIDERS: PCP Nurse Practitioner Family; Visit Provider Nurse Practitioner Family
DX: Z01.818 Encounter for other preprocedural examination (principal); M25.551 Pain in right hip; Z79.899 Other long term (current) drug therapy
CPT/HCPCS: 36415; 73502; 80053; 80061; 84436; 84443; 85025

== ENCOUNTER → 2020-09-17 09:32 | Outpatient (CLI) | payer OTHER, SELFPAY ==
[2020-09-17 10:26] LABS: Eosinophils # 0.1 K/mm3 (0.0-0.4); Eosinophils % 1.5 % (0.1-12.0); Hematocrit 37.3 % (42.0-52.0); Hemoglobin 12.7 g/dL (14.1-18.0); Lymphocytes # 1.3 K/mm3 (0.7-4.5); Lymphocytes % 37.5 % (10-50); Mean Corpuscular HGB Conc 34.2 g/dL (31.8-35.4); Mean Corpuscular Hemoglobin 30.4 pg (27.0-31.2); Mean Corpuscular Volume 88.8 fl (80-94); Mean Platelet Volume 7.7 fl (7.4-10.4); Monocytes # 0.3 K/mm3 (0.1-1.0); Monocytes % 8.3 % (1.7-9.3); Neutrophils # 1.8 K/mm3 (1.8-7.8); Neutrophils % 51.7 % (37.0-80.0); Platelet Count 192 K/mm3 (142-424); Red Cell Distribution Width 12.9 % (11.5-17.5); White Blood Count 3.5 K/mm3 (4.8-10.8)
[2020-09-17 10:50] LABS: Activated Partial Thrombo Time 27.6 seconds (22.8-30.6); INR 0.92 (0.9-1.1); Prothrombin Time 10.9 seconds (10.1-12.5)
[2020-09-17 11:05] LABS: Anion Gap 14.3 mEq/L (5-15); Blood Urea Nitrogen 19 mg/dl (9-20); Calcium 10.3 mg/dl (8.4-10.2); Carbon Dioxide 22 mmol/L (22.0-30.0); Chloride 106 mmol/L (98-107); Estimated Glomerular Filt Rate 76 ml/min (>60); GFR (African American) 92 ML/MIN (>60); Glucose 97 mg/dl (74-100); Potassium 4.3 mmoL/L (3.5-5.1); Sodium 138 mmol/L (136-145)
== END ==
PROVIDERS: Visit Provider Orthopaedic Surgery
DX: Z01.818 Encounter for other preprocedural examination (principal); M25.551 Pain in right hip; E11.9 Type 2 diabetes mellitus without complications; I10 Essential (primary) hypertension; F17.200 Nicotine dependence, unspecified, uncomplicated; Z79.4 Long term (current) use of insulin
CPT/HCPCS: 36415; 80048; 85025; 85610; 85730

== ENCOUNTER → 2020-09-25 12:14 | Outpatient (CLI) | payer OTHER, SELFPAY | PROVIDERS: PCP Nurse Practitioner Family; Visit Provider Orthopaedic Surgery | DX: M25.551 Pain in right hip (principal); Z01.818 Encounter for other preprocedural examination | CPT/HCPCS: 86850; U0003 ==

== ENCOUNTER 2020-09-28 09:42 | Observation (INO) | payer OTHER, SELFPAY ==
[2020-09-22 12:53] VITALS: BMI 36.2
--- NOTE | 2020-09-27 13:35 | SW/DCPLANNER ---
Addendum entered by Rocio Fox 09/30/20 06:51: Betty with [facility] of has confirmed that patient information has been reviewed and services will begin today for this patient. Addendum entered by Rocio Fox 09/29/20 10:30: I have spoke with this patient this morning: patient is doing well and home health has recommended that patient discharge home with home health services and a rolling walker. Patient is agreeable to home health and prefers [facility]. Patient is also agreeable to a rolling walker and this will be ordered from Roberto. Roberto has reviewed patient information/order and stated that rolling walker will be delivered to patients room today. Patient will be discharging to [address] [place] [address] to live with a friend (I will inform [employer]). Patient will discharge home later today. Original Note: I have spoke with this patient regarding total hip surgery tomorrow. Patient stated that he already has his discharge plans arranged: anticipates discharging home with a friend that will be there to help her. I will speak with this patient tomorrow/Sunday once surgery is complete.
[2020-09-28] VITALS (23 sets, daily range): BP systolic 79–164; BP diastolic 47–94; PULSE 60–108; RESP 14–20; TEMP 36.1–42.7; O2SAT 88–100; BMI 36.3
--- NOTE | 2020-09-28 09:45 | HMH.ANESCL ---
[facility] Anesthesia Checklist - Patient Identification Patient Identification: Arm Band - Structural Data Admitted From: Home Planned Operative Procedure/s: Hip arthroplasty Consent for Planned Operative Procedure(s) Verified: Yes - NPO Status Verified Time NPO: 00:00 - Additional verifications Anesthesia Reactions: No - Airway Assessment C-Spine Mobility Assessed: Yes TMJ Mobility Assessed: Yes Dentition: Dentures-good fit (Upper. Removed) - Neurological Assessment Level of Consciousness: Awake, Alert Hx Seizures: No Numbness or tingling in extremities: No - Anesthesia Plan Anesthesia Risk discussed: Yes Anesthesia Plan: Verified ASA Class: III Anesthesia Type: General w/block (General with spinal) [facility] History I have reviewed the patient's past medical history: Yes Medical History: Reports:: Asthma, Cancer (prostate), Chronic Obstructive Pulmonary Disease (COPD), Diabetes Mellitus Type 2, Gastroesophageal Reflux Disease(GERD), Hyperlipidemia, Hypertension, Renal Insufficiency Denies:: Diabetes Mellitus Type 1, Internal Pacemaker, MRSA, Seizures *Have you ever received a pneumonia vaccine?: Yes *Have you received a flu vaccine this season?: Yes Anesthesia experience/problems:: None Other Surgeries: Yes: Cholecystectomy, Hernia Repair. No: Pacemaker Amputation: No Fractures: No - *Social History Last grade of school completed: High school graduate Smoking Status: Current every day smoker Tobacco Type: cigarettes # Packs/Day (cigarettes): 2 Alcohol Intake: current Alcohol Intake Frequency:: a few times a month Substance Use Type: marijuana *Occupational Status:: disabled Housing: house *Travel in the last 8 weeks: None Family Hx:: Unable to obtain
[2020-09-28 11:27] LABS: POC Glucose,Bedside 117 (70-110)
--- NOTE | 2020-09-28 14:35 | HMH.PHAINT ---
MEDICATION RECONCILIATION COMPLETED ON PATIENT USING EXTERNAL FILL HISTORY FROM PHARMACY AND LIST FROM PCP OFFICE. -SHANTI TAVERAD
[2020-09-28 15:07] LABS: Microscopic,Cath URINE MICROSCOPIC (MICROSCOPIC)
[2020-09-28 16:10] LABS: Appearance,Urine/Cath CLEAR (Clear); Bilirubin,Cath Negative (Negative); Blood, Urine/Cath 1+ (Negative); Color,Urine/Cath YELLOW (Yellow); Glucose,Urine/Cath (UA) Negative (Negative); Ketones,Urine/Cath Negative (Negative); Leukocyte Esterase,Cath Negative (Negative); Nitrate,Cath Negative (Negative); Protein,Urine/Cath TRACE (Negative); Urobilinogen,Cath 0.2 EU/dl (0.2)
--- NOTE | 2020-09-28 16:17 | P.PN_ITS ---
[facility] Anesthesia Record Part I Intake, IV Amount: 2,000 Estimated blood loss (mL): 250 Urine output (mL): 50 Blood Pressure: 108/75 SaO2: 100 Pulse Rate: 82 Respiratory Rate: 14 Temperature: 97.1 F Patient is:: Drowsy Stable to PACU at:: 16:14
--- NOTE | 2020-09-28 16:23 | XR_ITS ---
PROCEDURE: XR HIP RT 2-3V W/PELVIS CLINICAL INDICATION: total hip COMPARISON: No exams were available for comparison FINDINGS: Total right hip arthroplasty is noted, demonstrate satisfactory alignment. Bone density is normal. Postsurgical changes with subcutaneous soft tissue air noted. Severe degenerative changes of the left hip joint are noted. IMPRESSION: Total right hip arthroplasty. Dictated by: Ning Doty 09/28/2020 16:49 Ning Doty in [place] 09/28/2020 16:49
[2020-09-28 16:32] LABS: Bacteria,Urine/Cath 1+ /lpf; Squamous Epithelial Ur./Cath Occasional #/hpf (0-5); WBC,Urine/Cath Occasional #/hpf (0-3)
[2020-09-28 16:34] LABS: POC Glucose,Bedside 106 (70-110)
--- NOTE | 2020-09-28 16:49 | HMH.ORTHHP ---
*Admission Date: 09/28/20 *Reason for consult:: s/p R TANYA *History of present illness: 60-year-old gentleman with DJD of the R hip. He has chronic R hip/knee pain x10 years or more, and has fallen many times over the years. He reports severe, 10 out of 10 pain that has not had any improvement with rest. He is a smoker, history of diabetes, hypertension, kidney disease, COPD, hyperlipidemia. He has a history of prostate cancer and finished treatments 3 or 4 months ago. Primary care physician is Dr. Delgadillo. He is having an increasingly difficult time with ambulation and is using a cane. He was previously an avid walker and misses being able to do this without persistent pain. He denies any shortness of breath or chest pain at rest or with exertion. He received his first dose of the moderna Covid vaccine on 09/15/2020. PMH = DM, HTN, COPD, HL; h/o prostate cancer. PCP is Leona. PSH = see chart Allg = PCN Meds = albuterol, vitamins B12/D2, ibuprofen, insulin, maxide, metoprolol, omeprazole, simvastatin SocHx = smoker; BMI 35 The patient underwent R TANYA this afternoon without complication. EBL 250cc, UOP 50cc, 3L crystalloid. [facility] History I have reviewed the patient's past medical history: Yes Medical History: Reports:: Asthma, Cancer (prostate), Chronic Obstructive Pulmonary Disease (COPD), Diabetes Mellitus Type 2, Gastroesophageal Reflux Disease(GERD), Hyperlipidemia, Hypertension, Renal Insufficiency Denies:: Diabetes Mellitus Type 1, Internal Pacemaker, MRSA, Seizures *Have you ever received a pneumonia vaccine?: Yes *Have you received a flu vaccine this season?: Yes Other Medical History: Denies: Blood Transfusion Reaction Anesthesia experience/problems:: None Other Surgeries: Yes: Cholecystectomy, Hernia Repair. No: Pacemaker Amputation: No Fractures: No - *Social History Last grade of school completed: High school graduate Smoking Status: Current every day smoker Tobacco Type: cigarettes # Packs/Day (cigarettes): 2 Alcohol Intake: current Alcohol Intake Frequency:: a few times a month Substance Use Type: marijuana *Occupational Status:: disabled Housing: house *Travel in the last 8 weeks: None Family Hx:: Unable to obtain Review of Systems - Review of Systems Review of systems:: pertinent systems reviewed and negative unless documented below Meds Home Medications Medication Instructions Recorded Confirmed Type Cyanocobalamin (Vitamin B-12) 2,000 mcg PO DAILY 06/30/20 09/22/20 History [Vitamin B-12] Insulin NPH Hum/Reg Insulin Hm 10 units SQ BID 06/30/20 09/22/20 History [Novolin 70-30 Flexpen] Omeprazole [Omeprazole 20mg 20 mg PO DAILY 06/30/20 09/22/20 History Capsule] Ergocalciferol (Vitamin D2) 1,250 mcg PO WEEKLY 09/22/20 09/28/20 History [Drisdol] Lisinopril/Hydrochlorothiazide 1 tab PO DAILY 09/22/20 09/22/20 History [Lisinopril-Hctz 10-12.5 mg Tab] Metoprolol Succinate [Metoprolol 25 mg PO DAILY 09/22/20 09/22/20 History Succinate 25mg Tablet*] Simvastatin 10 mg PO HS 09/22/20 09/28/20 History Albuterol Sulfate [Albuterol 2 puffs IH Q4HP PRN 09/28/20 09/28/20 History Sulfate Hfa] Allergies Allergy/AdvReac Type Severity Reaction Status Date / Time Penicillins [PENICILLINS] Allergy Intermediate I-RASH Verified 09/17/20 08:48 Exam Vital signs and Labs for Last 24 Hours: Temp Pulse Resp BP Pulse Ox 97.1 F L 79 16 119/49 L 98 09/28/20 16:22 09/28/20 16:25 09/28/20 16:25 09/28/20 16:25 09/28/20 16:25 Laboratory Results - last 24 hr 09/28/20 09:35: POC Glucose 117 H 09/28/20 09:40: Blood Type A Positive, Antibody Screen Negative, Crossmatch (AHG) See Detail 09/28/20 12:53: Urine Color Yellow, Urine Appearance Clear, Urine pH 6.0, Ur Specific [place] 1.020, Urine Protein Trace, Urine Glucose (UA) Negative, Urine Ketones Negative, Urine Blood 1+, Urine Nitrate Negative, Urine Bilirubin Negative, Urine Urobilinogen 0.2, Ur Leukocyte Esterase
--- NOTE | 2020-09-28 16:55 | HMH.OPNOTE ---
Date of procedure: 09/28/20 Pre-op Diagnosis:: R hip degenerative joint disease Post-op Diagnosis:: R hip degenerative joint disease Procedure performed:: R total hip arthroplasty (TANYA) Surgeon:: Donna Decker MD Supply Chain Planner(s):: BERNARD Resendez PRIMARY SCHOOL TEACHER:: Other (Kerri Barrrea) Anesthesia: MAC, spinal Estimated blood loss (mL): 250 Clinical Note:: 60-year-old gentleman with DJD of the R hip. He has chronic R hip/knee pain x10 years or more, and has fallen many times over the years. He reports severe, 10 out of 10 pain that has not had any improvement with rest. He is a smoker, history of diabetes, hypertension, kidney disease, COPD, hyperlipidemia. He has a history of prostate cancer and finished treatments 3 or 4 months ago. Primary care physician is Dr. Delgadillo. He is having an increasingly difficult time with ambulation and is using a cane. He was previously an avid walker and misses being able to do this without persistent pain. He denies any shortness of breath or chest pain at rest or with exertion. He received his first dose of the moderna Covid vaccine on 09/15/2020. I discussed treatment options with the patient, including continued oral anti-inflammatory use, continued cane use, activity modification. The patient is having difficulty with ADLs and his quality of life is suffering due to his inability to remain active and he is experiencing constant pain. We discussed the possibility of intra-articular corticosteroid injection in the right hip, though I explained this to be a temporary pain reliever and eventually would wear off with return of his pain. The patient would rather proceed with total hip arthroplasty. We discussed the surgical technique, expected perioperative course, expected duration of recovery and all risks associated with the procedure. I discussed the risks and benefits of the surgery at length, in addition to the expected perioperative course, hospital stay and need for postoperative physical therapy. We also discussed the risks of surgery, which include but are not limited to: bleeding, infection, intraoperative fracture, neurovascular damage including postoperative foot drop, periprosthetic fracture postoperatively, postoperative hip dislocation, need for possible revision surgery in the future, wound healing complications due to his status is a smoker, and the possibility of continued pain and/or disability despite surgery. The patient vocalized understanding and provided informed consent for the procedure. Operative findings:: IMPLANTS: [employer] acetabulum = R3 cup 60mm, 3-hole 6.5 x 25mm screws x2 liner: 36mm 20deg lip femur = polar stem size 4 std neck/offset head = oxinium, 36 +0 Operative note:: The patient was identified in preoperative holding and the R hip signed by myself. Consent was verified with the patient and all questions answered. He was then taken to the operating room where spinal anesthesia was administered by PRIMARY SCHOOL TEACHER while the patient remained on his cart. After the spinal was completed he was transferred to the OR table; 900mg IV clindamycin was administered as the patient is allergic to penicillin. He was then sedated intravenously and placed in the left lateral decubitus position; all bony prominences were well-padded. SCD was placed on the bottom non-operative leg, and the R hip was prepped and draped in the usual sterile fashion. Timeout was performed, identifying the correct patient, correct procedure and correct site. Just prior to incision, the first dose of tranexamic acid was administered. The procedure was begun by making a longitudinal, curvilinear incision over the posterolateral aspect the the R hip, centered over the greater trochanter. Subcutaneous tissue was dissected with cautery until gluteal fascia was encountered. The fascia was incised in line with the shaft of the femur distally and curved proximally; fibers of the gluteus sinai were bluntly spread with fing
--- NOTE | 2020-09-28 17:37 | PC.NURSE ---
Pt arrived to to the floor at this time.
--- NOTE | 2020-09-28 18:02 | PC.NURSE ---
Notified Dr. Koehler of Medical Management consult.
--- NOTE | 2020-09-28 19:22 | HMH.ACPN2 ---
Internal Medicine - PN: Subj *Date: 09/28/20 *Time: 19:22 Interval history: Patient is a 60-year-old black male, followed by Dr. Delgadillo, who underwent a total right hip arthroplasty today. We are asked to assist in his medical management. Comorbid conditions include tobacco abuse, diabetes, hypertension, COPD, hyperlipidemia, cancer of the prostate. He is still somewhat groggy from anesthesia, relays no chest pain, shortness of breath or abdominal discomfort. Exam Vital signs and Labs for Last 24 Hours: Temp Pulse Resp BP Pulse Ox 96.9 F L 89 16 119/47 L 99 09/28/20 17:25 09/28/20 17:25 09/28/20 17:25 09/28/20 17:25 09/28/20 18:54 Laboratory Results - last 24 hr 09/28/20 09:35: POC Glucose 117 H 09/28/20 09:40: Blood Type A Positive, Antibody Screen Negative, Crossmatch (AHG) See Detail 09/28/20 12:53: Urine Color Yellow, Urine Appearance Clear, Urine pH 6.0, Ur Specific [place] 1.020, Urine Protein Trace, Urine Glucose (UA) Negative, Urine Ketones Negative, Urine Blood 1+, Urine Nitrate Negative, Urine Bilirubin Negative, Urine Urobilinogen 0.2, Ur Leukocyte Esterase Negative, Urine RBC 3-5, Urine WBC Occasional, Ur Squamous Epith Cells Occasional, Urine Bacteria 1+ 09/28/20 16:26: POC Glucose 106 I & O for Last 24 hours: Intake & Output 09/25/20 09/26/20 09/27/20 09/28/20 23:59 23:59 23:59 23:59 Intake Total 1999 Output Total 50 / 50 Balance 1949 / 1949 Weight 260 lb 0.034 oz - Constitutional cooperative, somnolent - *Routine HEENT Exam Head: Present: normocephalic Eye: Present: EOMI, PERRL ENT: Present: mucous membranes moist - *Routine Neck Exam Present: supple. Absent: lymphadenopathy - *Routine Respiratory Exam Present: CTA bilaterally - *Routine Cardiovascular Exam Present: RRR - *Routine Abdominal Exam Present: soft, normoactive bowel sounds. Absent: tenderness - *Routine Extremities Exam Present: tenderness - *Routine Skin Exam Present: warm. Absent: rash - *Routine Neurological Exam Present: alert, oriented X3, vision grossly intact, hearing grossly intact, normal speech. Absent: facial asymmetry Assessment and Plan (1) Degenerative joint disease of right hip Status: Acute Category: Medical Code(s): M16.11 - Unilateral primary osteoarthritis, right hip (2) COPD (chronic obstructive pulmonary disease) Status: Chronic Qualifiers: COPD type: unspecified COPD Qualified Code(s): J44.9 - Chronic obstructive pulmonary disease, unspecified Category: Medical Code(s): J44.9 - Chronic obstructive pulmonary disease, unspecified (3) Diabetes Status: Chronic Qualifiers: Diabetes mellitus type: type 2 Diabetes mellitus termite exterminator insulin use: with assisted use Diabetes mellitus complication status: without complication Qualified Code(s): E11.9 - Type 2 diabetes mellitus without complications; Z79.4 - termite control representative (current) use of insulin Category: Medical Code(s): E11.9 - Type 2 diabetes mellitus without complications (4) HLD (hyperlipidemia) Status: Chronic Qualifiers: Hyperlipidemia type: mixed hyperlipidemia Qualified Code(s): E78.2 - Mixed hyperlipidemia Category: Medical Code(s): E78.5 - Hyperlipidemia, unspecified (5) HTN (hypertension) Status: Chronic Qualifiers: Hypertension type: essential hypertension Qualified Code(s): I10 - Essential (primary) hypertension Category: Medical Code(s): I10 - Essential (primary) hypertension (6) Prostate cancer Status: Chronic Category: Medical Code(s): C61 - Malignant neoplasm of prostate (7) Tobacco abuse Status: Chronic Category: Medical Code(s): Z72.0 - Tobacco use - Assessment and plan all Dx Assessment and Plan for all problems:: Will bronchodilator via duo nebs scheduled. Encouraged use of incentive spirometer. We will follow with sliding scale insulin. See orders
--- NOTE | 2020-09-28 21:25 | PC.NURSE ---
Pt BG 90, no insulin given.
--- NOTE | 2020-09-28 21:47 | PC.NURSE ---
Pt can move foot up and down, side to side, however, cannot feel pinching on all five digits.
--- NOTE | 2020-09-28 22:20 | PC.NURSE ---
Patient can move both feet up and down, side to side, RLE, can wiggle toes, cannot feel pinching of all 5 digits. No S/S of Foot drop. Will continue to monitor.
[2020-09-28 22:24] LABS: POC Glucose,Bedside 90 (70-110)
--- NOTE | 2020-09-28 22:38 | PC.NURSE ---
PT pain still at 10 (0-10) CAlled MD to see what else I could give.
--- NOTE | 2020-09-28 22:53 | PC.NURSE ---
Called MD, give Oxycodone 5 mg X 1 NOW. Orders changed to OXY 10 MG Q 4 Hours. PT VS 112/85 and RR 19, Will continue to monitor
--- NOTE | 2020-09-28 23:08 | PC.NURSE ---
Pt states I want to walk out of here was very argumentative about abductor was pulling on and trying to remove by self. Compromised by setting device on side, fastened, and a pillow between leg. Also applied Ice pack to RLE Hip. Will continue to monitor.
--- NOTE | 2020-09-28 23:33 | PC.NURSE ---
Pt incessantly requests to stand or get out of bed. This RN attempts to redirect stating that pt needs to be evaluated by PT/OT. Will continue to monitor and redirect as needed.
--- NOTE | 2020-09-29 00:23 | PC.NURSE ---
Pt continues to be restless. Pain level still at 10 (0-10 scale). Admistered 1 mg Dilaudid per order. Will continue to monitor
--- NOTE | 2020-09-29 00:25 | PC.NURSE ---
Pt refused to wear adductor foam between legs. Placed 2 pillows between legs. Will continue to monitor.
[2020-09-29 00:40] LABS: POC Glucose,Bedside 94 (70-110)
[2020-09-29 02:12] VITALS: RESP 19
--- NOTE | 2020-09-29 02:45 | PC.NURSE ---
Gave pt Oxycodone 10 mg per order, RR 18 B/P 146/90 HR 107. Will continue to monitor.
--- NOTE | 2020-09-29 02:57 | PC.NURSE ---
Pt refused to wear Abductor, pillow between legs. Will continue to monitor.
--- NOTE | 2020-09-29 03:20 | PC.NURSE ---
Reassessed pain at 312 pt states 8 not as restless, however went to give warm blanket to patient found to be moaning, will call MD to advise of pain not tolerated. Will continue to monitor
[2020-09-29 04:37] VITALS: BP 132/74; PULSE 108; RESP 20; TEMP 37; O2SAT 99
[2020-09-29 04:45] LABS: POC Glucose,Bedside 151 (70-110)
--- NOTE | 2020-09-29 04:57 | PC.NURSE ---
After dose of Tordol 30 mg IV, patient resting comfortably in bed. Pt is no longer restless. Pt refused Abductor pillow, has pillow between legs.
[2020-09-29 05:27] VITALS: BMI 36.6
--- NOTE | 2020-09-29 05:54 | PC.NURSE ---
Pt resting comfortably with eyes closed. Pt in no acute distress. Will continue to monitor.
--- NOTE | 2020-09-29 07:00 | PC.NURSE ---
Pt given Pain Rx at 0650 B/P 124/90 HR 89 RR 18. Will continue to monitor
--- NOTE | 2020-09-29 07:00 | PC.NURSE ---
Pt stated needed to have a Bowel Movement, offered Bed Humphrey X 2 pt refused.
--- NOTE | 2020-09-29 07:36 | PC.NURSE ---
Pt neuro check for RLE--Pt has sensation in RLE all 5 digits. No S/S foot drop
[2020-09-29 07:48] LABS: Basophils % 0.2 % (0.1-2.0); Eosinophils % 0.5 % (0.1-12.0); Hematocrit 26.9 % (42.0-52.0); Hemoglobin 9.4 g/dL (14.1-18.0); Lymphocytes # 0.8 K/mm3 (0.7-4.5); Lymphocytes % 15.6 % (10-50); Mean Corpuscular Hemoglobin 30.4 pg (27.0-31.2); Mean Corpuscular Volume 86.8 fl (80-94); Monocytes # 0.3 K/mm3 (0.1-1.0); Neutrophils # 4.1 K/mm3 (1.8-7.8); Neutrophils % 77.8 % (37.0-80.0); Platelet Count 118 K/mm3 (142-424); Red Cell Distribution Width 13.1 % (11.5-17.5); White Blood Count 5.3 K/mm3 (4.8-10.8)
[2020-09-29 07:55] LABS: Blood Urea Nitrogen 20 mg/dl (9-20); Calcium 8.5 mg/dl (8.4-10.2); Carbon Dioxide 22 mmol/L (22.0-30.0); Chloride 107 mmol/L (98-107); Creatinine Clearance Estimated 129 mL/min (50-200); Estimated Glomerular Filt Rate 76 ml/min (>60); GFR (African American) 92 ML/MIN (>60); Glucose 152 mg/dl (74-100); Sodium 135 mmol/L (136-145)
[2020-09-29 08:00] VITALS: BP 123/82; PULSE 104; RESP 18; TEMP 36.9; O2SAT 100
--- NOTE | 2020-09-29 08:28 | HMH.PHAVTE ---
[facility] Pharmacy VTE Monitoring - Patient Demographics Admission date: 09/28/20 Report Date: 09/29/20 Time: 08:28 Allergies/Adverse Reactions: Patient Allergies Penicillins [PENICILLINS] Allergy (Intermediate, Verified 09/17/20 08:48) I-RASH Height: 1.8 m Weight: 118.898 kg Patient Problems: Current Active Problems Degenerative joint disease of right hip (Acute) HLD (hyperlipidemia) (Chronic) COPD (chronic obstructive pulmonary disease) (Chronic) Prostate cancer (Chronic) Tobacco abuse (Chronic) HTN (hypertension) (Chronic) Diabetes (Chronic) - VTE Risk Labs: VTE Related Lab Results Hgb 9.4 g/dL (14.1-18.0) L 09/29/20 07:38 Hct 26.9 % (42.0-52.0) L 09/29/20 07:38 Plt Count 118 K/mm3 (142-424) L 09/29/20 07:38 BUN 20 mg/dl (9-20) 09/29/20 07:38 Creatinine 1.00 mg/dl (0.66-1.25) 09/29/20 07:38 Estimated Creat Clear 129 mL/min (50-200) 09/29/20 07:38 VTE Score: 6 VTE Risk Level: Moderate Risk - Prophylaxis VTE Prophylaxis Ordered?: Yes Types of VTE Prophylaxis: TEDS Knee High Location of Applied Device: Bilateral Lower Extremeties
--- NOTE | 2020-09-29 09:23 | HMH.CONFU ---
Internal Medicine - PN: Subj *Date: 09/29/20 *Time: 09:23 Interval history: 60-year-old male patient sitting up in bed, denies any chest pain or shortness of breath. Reports pain is at a tolerable level, Elastoplast dressing clean dry and intact right hip. Patient does have a history of diabetes and will be managed by PCP. He does report he is 1/2 pack/day smoker after decreasing from 2 packs/day, smoking cessation discussed and encouraged. Stressed importance of incentive spirometer and cough and deep breathing hourly. Patient reports he will be discharged home and importance of participating and completing physical therapy discussed. Dr. Delgadillo is in attendance Exam Vital signs and Labs for Last 24 Hours: Temp Pulse Resp BP Pulse Ox 98.4 F 104 H 18 123/82 100 09/29/20 08:00 09/29/20 08:00 09/29/20 08:00 09/29/20 08:00 09/29/20 08:00 Laboratory Results - last 24 hr 09/28/20 09:35: POC Glucose 117 H 09/28/20 09:40: Blood Type A Positive, Antibody Screen Negative, Crossmatch (AHG) See Detail 09/28/20 12:53: Urine Color Yellow, Urine Appearance Clear, Urine pH 6.0, Ur Specific [place] 1.020, Urine Protein Trace, Urine Glucose (UA) Negative, Urine Ketones Negative, Urine Blood 1+, Urine Nitrate Negative, Urine Bilirubin Negative, Urine Urobilinogen 0.2, Ur Leukocyte Esterase Negative, Urine RBC 3-5, Urine WBC Occasional, Ur Squamous Epith Cells Occasional, Urine Bacteria 1+ 09/28/20 16:26: POC Glucose 106 09/28/20 18:42: POC Glucose 94 09/28/20 21:13: POC Glucose 90 09/29/20 04:37: POC Glucose 151 H 09/29/20 07:38: WBC 5.3, RBC 3.10 L, Hgb 9.4 L, Hct 26.9 L, MCV 86.8, MCH 30.4, MCHC 35.0, RDW 13.1, Plt Count 118 L, MPV 8.0, Neut % (Auto) 77.8, Lymph % (Auto) 15.6, [place] % (Auto) 6.0, Eos % (Auto) 0.5, Baso % (Auto) 0.2, Neut # (Auto) 4.1, Lymph # (Auto) 0.8, [place] # (Auto) 0.3, Eos # (Auto) 0.0, Baso # (Auto) 0.0 09/29/20 07:38: Sodium 135 L, Potassium 4.0, Chloride 107, Carbon Dioxide 22, Anion Gap 10.0, BUN 20, Creatinine 1.00, Estimated Creat Clear 129, Estimated GFR 76, Est GFR ( Amer) 92, Glucose 152 H, Calcium 8.5 I & O for Last 24 hours: Intake & Output 09/26/20 09/27/20 09/28/20 09/29/20 23:59 23:59 23:59 23:59 Intake Total 1999 / 2059 925 / 925 Output Total 50 / 450 1425 / 1425 Balance 1950 / 1610 -500 / -500 Weight 260 lb 0.034 oz 262 lb 2 oz - Constitutional no acute distress - *Routine HEENT Exam Head: Present: normocephalic Eye: Present: EOMI ENT: Present: mucous membranes moist - *Routine Neck Exam Present: trachea midline. Absent: tracheal deviation - *Routine Respiratory Exam Present: rhonchi - *Routine Cardiovascular Exam Present: RRR - *Routine Abdominal Exam Present: soft, normoactive bowel sounds. Absent: tenderness, firm - *Routine Extremities Exam Present: pulses intact, tenderness. Absent: cyanosis, edema, full ROM, calf tenderness - *Routine Skin Exam Present: dry, warm, wounds. Absent: intact, erythema, lesions Comments: Elastoplast dressing right hip clean/dry/intact - *Routine Neurological Exam Present: alert, oriented X3. Absent: motor deficit, altered mental status - Routine Psychiatric Exam Present: normal affect, normal thought process. 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
--- NOTE | 2020-09-29 10:04 | PC.NURSE ---
patient will need a rolling walker rather than a cane due to hip replacement
--- NOTE | 2020-09-29 10:15 | HMH.OTEV ---
OT Inpatient Evaluation Rehab OT IP Evaluation Start: 09/28/20 16:34 Freq: ONCE Status: Complete Protocol: Document 09/29/20 10:08 CRISTINA (Rec: 09/29/20 10:15 CRISTINA [id number]) Rehab OT IP Assessment Subjective History 60-year-old gentleman with DJD of the R hip. He has chronic R hip/knee pain x10 years or more, and has fallen many times over the years. He reports severe, 10 out of 10 pain that has not had any improvement with rest. He is a smoker, history of diabetes, hypertension, kidney disease, COPD, hyperlipidemia . He has a history of prostate cancer and finished treatments 3 or 4 months ago. Primary care physician is Dr. Delgadillo. He is having an increasingly difficult time with ambulation and is using a cane. He was previously an avid walker and misses being able to do this without persistent pain. He denies any shortness of breath or chest pain at rest or with exertion. He received his first dose of the moderna Covid vaccine on 09/15/2020. PMH = DM, HTN, COPD, HL; h/o prostate cancer. PCP is Leona . Subjective Patient lives alone at home and independent with ADLs/fx'l mobility prior to surgery. Patient ambulated with cane 2* pain in R LE. Patient verablize living with a friend during recovery time for THR R LE. Friend lives in 1 story home with 1 JAMIE. Recommend patient to have RW for ambulation and fx'l mobility after d/c. Instructed Patient on safety awareness during functional transfers and bed mobility task. Educated Patient on hip preca
[2020-09-29 10:19] VITALS: BMI 36.7
--- NOTE | 2020-09-29 10:23 | HMH.PTEV ---
Physical Therapy Evaluation Rehab PT IP Evaluation Start: 09/28/20 16:34 Freq: ONCE Status: Active Protocol: Document 09/29/20 09:10 PHORDOC (Rec: 09/29/20 10:23 PHORNE [id number]) Subjective/History History History 60 yoaam adm to [facility] with R hip OA now S/P R TANYA. He reports he is independent with mobility at baseline, lives alone, but is going to stay with a friend after he leaves the hospital. Subjective Subjective Pt c/o expected post-op pain, but is ready to get OOB and moving. Rehab PT IP Eval Objective Appearance Patient Behavior Appropriate Patient Orientation Person,Place,Time Difficulty following instructions none Speech Pattern Clear Ambulation Patient Able to Ambulate Yes Ambulation Observation IP General Gait Pattern Observation Antalgic Gait Ambulation Distance (feet) 300 Ambulation Assistive Device Rolling Walker Ambulation Ability Supervision/Stand by Balance Ability to Arise Able, uses arms to help Sitting Balance Steady, safe Standing Balance Steady, wide stance Dynamic Sitting Balance Ability Good Dynamic Standing Balance Ability Good Transfers Bed Transfer Ability Supervision/Stand by Chair Transfer Ability Supervision/Stand by Sit to Stand Bed Transfer Ability Supervision/Stand by Sit to Stand Chair Transfer Ability Supervision/Stand by ROM All Extremities PT ROM Status WFL MMT All Extremities PT MMT WFL Rehab PT IP prob,goals,plan Problems Date of Evaluation: 09/29/20 PT IP Problems Transfers,Gait Rehab Potential Rehab Potential Good Equipment Needs Assistive Devices Rolling / Wheeled Walker Plan PT Intervention Plan Transfers,Gait,Self care, Therapeutic Exercise PT Plan Frequency BID Duration LOS Discharge Goals Bed Transfer Ability Independent Sit to Stand Chair Transfer Ability Independent Ambulation Assistive Device Rolling Walker Ambulation Distance (feet) 400 Discharge Plan PT Discharge Plan Pt is appropriate to return home once medically stable. G -code Required No Eval Complexity Eval Charge Codes 94016 - Moderate Complexity PHYSICIAN CERTIFICATION: I certify the specified therapy services for Maikel Hazel are required, author
--- NOTE | 2020-09-29 10:40 | P.PN_ITS ---
Subjective Date: 09/29/20 Time: 10:00 Principal diagnosis: s/p R TANYA Interval history: The patient is doing well this morning. He had significant pain overnight, but says this was due to his inability to sit up on the edge of the bed; since he has been out of bed this morning he feels much better. Additionally, changes were made to his pain medication overnight, which helped as well. Iyer catheter was removed after spinal anesthetic wore off. He is now voiding i ndependently. Tolerating good p.o. intake without nausea or vomiting. Vitals are stable, no fevers or chills, no numbness or tingling in the right lower extremity. He has been out of bed and walked 300 feet with physical therapy in the hallway this morning. He is eager to return home today. PN: Obj Ex Vital signs: Temp Pulse Resp BP Pulse Ox 98.4 F 104 H 18 123/82 100 09/29/20 08:00 09/29/20 08:00 09/29/20 08:00 09/29/20 08:00 09/29/20 08:00 - Constitutional no acute distress - Routine HEENT Exam Head: Present: normocephalic Eye: Present: EOMI ENT: Present: mucous membranes moist - Routine Respiratory Exam Absent: respiratory distress, wheezes - Routine Cardiovascular Exam Present: RRR - Routine Abdominal Exam Present: soft. Absent: tenderness - Routine Extremities Exam Comments: abduction pillow in place R hip dressing c/d/i, no strikethrough +DF/PF/EHL RLE SILT distally RLE in all distributions R calf soft, non-tender, compressible palpable pedal pulses RLE, skin pink/warm - Routine Skin Exam Present: warm - Routine Neurological Exam Present: alert, oriented X3, moving all extremities, normal tone, vision grossly intact, hearing grossly intact, normal speech. Absent: sensory deficit, motor deficit, altered mental status - Routine Psychiatric Exam Present: normal affect - Urinary Catheter Management Coude Cath placed during this visit: yes, but has since been removed by the nurse Urethral indwelling: No Insertion date: 09/28/20 Removal date: 09/29/20 Progress Note: A&P (1) Degenerative joint disease of right hip Status: Acute (2) COPD (chronic obstructive pulmonary disease) Status: Chronic (3) Diabetes Status: Chronic (4) HLD (hyperlipidemia) Status: Chronic (5) HTN (hypertension) Status: Chronic (6) Prostate cancer Status: Chronic (7) Tobacco abuse Status: Chronic Assessment and Plan for All Diagnoses:: 60yo M POD 1 s/p R TANYA -- WBAT RLE, posterior hip precautions -- hip abduction pillow while in bed -- PT/OT to continue -- polar care device to ice R hip -- finish 24hr IV prophy antibiotics (clindamycin) -- DVT prophy: aspirin 81mg BID x6 weeks -- continue winter meds -- pain control: tylenol scheduled q8hr, oxycodone for breakthrough, celebrex daily scheduled -- SCDs BLE -- encourage IS 10x/hr while awake -- Dr. Delgadillo on consult for medical management -- care management consult for dispo planning; d/c home today with home health -- follow-up with me in the office 10/11/20 at 2:15pm
--- NOTE | 2020-09-29 10:51 | HMH.DCSUM ---
General - General Admission date:: 09/28/20 Discharge date: 09/29/20 HPI HPI: 60-year-old gentleman with DJD of the R hip. He has chronic R hip/knee pain x10 years or more, and has fallen many times over the years. He reports severe, 10 out of 10 pain that has not had any improvement with rest. He is a smoker, history of diabetes, hypertension, kidney disease, COPD, hyperlipidemia. He has a history of prostate cancer and finished treatments 3 or 4 months ago. Primary care physician is Dr. Delgadillo. He is having an increasingly difficult time with ambulation and is using a cane. He was previously an avid walker and misses being able to do this without persistent pain. He denies any shortness of breath or chest pain at rest or with exertion. He received his first dose of the moderna Covid vaccine on 09/15/2020. PMH = DM, HTN, COPD, HL; h/o prostate cancer. PCP is Leona. PSH = see chart Allg = PCN Meds = albuterol, vitamins B12/D2, ibuprofen, insulin, maxide, metoprolol, omeprazole, simvastatin SocHx = smoker; BMI 35 The patient underwent R TANYA this afternoon without complication. EBL 250cc, UOP 50cc, 3L crystalloid. Hospital Course Hospital Course: The patient did well during his admission and there were no medical complications. Iyer was removed on postoperative day 1. Pain medication was available PRN. He worked with physical therapy and was deemed appropriate for d/c home with HHPT. His pain was well-controlled on oral medication and there were no issues pending discharge. Home health physical therapy was arranged. He was seen by Dr. Delgadillo, who did not see any medical issues that needed to be addressed. He completed 24 hours of prophylactic antibiotics. Aspirin was started on postoperative day 1 for DVT prophylaxis and SCDs were worn throughout the stay. Incentive spirometer was encouraged and used during his stay. He was discharged home on POD 1 with home health PT and scheduled to follow-up with me in 2 weeks. Objective Vital signs: Temp Pulse Resp BP Pulse Ox 98.4 F 104 H 18 123/82 100 09/29/20 08:00 09/29/20 08:00 09/29/20 08:00 09/29/20 08:00 09/29/20 08:00 no acute distress - *Routine HEENT Exam Head: Present: normocephalic Eye: Present: EOMI ENT: Present: mucous membranes moist - *Routine Neck Exam Present: supple, trachea midline - *Routine Respiratory Exam Absent: respiratory distress, wheezes - *Routine Cardiovascular Exam Present: RRR - *Routine Abdominal Exam Present: soft. Absent: tenderness - *Routine Extremities Exam Comments: patient sitting in bedside chair R hip dressing c/d/i, no strikethrough +DF/PF/EHL RLE SILT distally RLE in all distributions R calf soft, non-tender, compressible palpable pedal pulses RLE, skin pink/warm - *Routine Skin Exam Present: warm - *Routine Neurological Exam Present: alert, oriented X3, moving all extremities, normal tone, vision grossly intact, hearing grossly intact, normal speech. Absent: sensory deficit, motor deficit, altered mental status Results Labs on day of discharge: Labs from last 24 hours 09/29/20 09/29/20 09/29/20 07:38 07:38 04:37 WBC 5.3 RBC 3.10 L Hgb 9.4 L Hct 26.9 L MCV 86.8 MCH 30.4 MCHC 35.0 RDW 13.1 Plt Count 118 L MPV 8.0 Neut % (Auto) 77.8 Lymph % (Auto) 15.6 [place] % (Auto) 6.0 Eos % (Auto) 0.5 Baso % (Auto) 0.2 Neut # (Auto) 4.1 Lymph # (Auto) 0.8 [place] # (Auto) 0.3 Eos # (Auto) 0.0 Baso # (Auto) 0.0 Sodium 135 L Potassium 4.0 Chloride 107 Carbon Dioxide 22 Anion Gap 10.0 BUN 20 Creatinine 1.00 Estimated Creat Clear 129 Estimated GFR 76 Est GFR ( Amer) 92 Glucose 152 H POC Glucose 151 H Calcium 8.5 Urine Color Urine Appearance Urine pH Ur Specific [place] Urine Protein Urine Glucose (UA) Urine Ketones Urine Blood Urine Nitr
--- NOTE | 2020-09-29 11:25 | P.PN_ITS ---
[facility] Anesthesia Record Part II Discharge Time: 16:54 Destination: floor PACU nurse assessment reviewed?: Yes Patient Condition:: Good Anesthesia Complications:: None Swallowing reflex intact?: Yes Cyanosis?: No Blood Pressure: 107/69 Pulse Rate: 79 Temperature: 97.6 F Mental Status: Alert & Oriented Pain level:: 0 Nausea and/or vomitting:: None Intake, IV Amount: 1,500
[2020-09-29 11:27] VITALS: BP 107/69; PULSE 79; TEMP 36.4
== END 2020-09-29 11:30 | disposition home health service (06) ==
LOC: 2ND 09:43
PROVIDERS: Admitting Provider Orthopaedic Surgery; PCP Nurse Practitioner Family; Visit Provider Orthopaedic Surgery
PROC: (CPT 27130; principal; 2020-09-28 10:45)
DX: M16.11 Unilateral primary osteoarthritis, right hip (principal); R29.6 Repeated falls; Z91.81 History of falling; E11.9 Type 2 diabetes mellitus without complications; Z79.84 Long term (current) use of oral hypoglycemic drugs; Z79.51 Long term (current) use of inhaled steroids; C61 Malignant neoplasm of prostate; J44.9 Chronic obstructive pulmonary disease, unspecified; Z79.899 Other long term (current) drug therapy; Z72.0 Tobacco use; Z88.0 Allergy status to penicillin
CPT/HCPCS: 27130; 36415; 73502; 80048; 81001; 82962; 85025; 86850; 96374; 97162; 97165; C1713; C1776; G0378; J2405

== ENCOUNTER → 2020-10-11 13:44 | Outpatient (CLI) | payer OTHER, SELFPAY ==
--- NOTE | 2020-10-11 13:47 | XR_ITS ---
PROCEDURE: XR HIP RT 2-3V W/PELVIS CLINICAL INDICATION: s/p RT TANYA Follow-up hip replacement COMPARISON: CR XR HIP RT 2-3V W/PELVIS from 09/28/2020 FINDINGS: Status post right total hip replacement with good alignment. No evidence of orthopedic complication. AP view of the pelvis shows severe osteoarthritic change of the left hip and prostate seed implants over the pubic region. IMPRESSION: Good alignment status post right replacement Dictated by: Zain Meyer MD 10/11/2020 14:49 Zain Meyer MD in [place] 10/11/2020 14:49
== END ==
PROVIDERS: PCP Emergency Medicine; Visit Provider Orthopaedic Surgery
DX: M25.551 Pain in right hip (principal); Z96.641 Presence of right artificial hip joint
CPT/HCPCS: 73502

== ENCOUNTER → 2020-11-08 13:38 | Outpatient (CLI) | payer OTHER, SELFPAY ==
--- NOTE | 2020-11-08 13:42 | XR_ITS ---
PROCEDURE: XR HIP RT 2-3V W/PELVIS CLINICAL INDICATION: s/p RT thomas COMPARISON: CR XR HIP RT 2-3V W/PELVIS from 10/11/2020 FINDINGS: Total right hip arthroplasty is noted. No acute periprosthetic fractures. Bone density is normal. No significant soft tissue abnormality. No evidence of periprosthetic lucency to suggest infection versus loosening. Degenerative changes of the left hip joint and the visualized lumbar spine. IMPRESSION: Total right hip arthroplasty. No acute abnormality. Dictated by: Ning Doty 11/08/2020 16:53 Ning Doty in [facility] 11/08/2020 16:53
== END ==
PROVIDERS: PCP Emergency Medicine; Visit Provider Orthopaedic Surgery
DX: M25.551 Pain in right hip (principal); Z96.641 Presence of right artificial hip joint
CPT/HCPCS: 73502

== ENCOUNTER → 2020-12-10 12:52 | Outpatient (CLI) | payer OTHER, SELFPAY ==
--- NOTE | 2020-12-10 12:58 | XR_ITS ---
PROCEDURE: XR HIP RT 2-3V W/PELVIS CLINICAL INDICATION: s/p RT TANYA Follow-up right hip replacement COMPARISON: CR XR HIP RT 2-3V W/PELVIS from 11/08/2020 FINDINGS: AP and slight abduction views are obtained showing the total hip prosthesis in place. There is good alignment. No evidence of orthopedic complication. IMPRESSION: Status post right hip replacement with good alignment Dictated by: Zain Meyer MD 12/10/2020 19:53 Zain Meyer MD in [facility] 12/10/2020 19:53
== END ==
PROVIDERS: PCP Emergency Medicine; Visit Provider Orthopaedic Surgery
DX: Z96.641 Presence of right artificial hip joint (principal)
CPT/HCPCS: 73502

== ENCOUNTER → 2020-12-10 14:38 | Outpatient (CLI) | payer OTHER, SELFPAY ==
[2020-12-10 15:05] LABS: Basophils % 0.5 % (0.1-2.0); Eosinophils % 1.3 % (0.1-12.0); Hematocrit 33.6 % (42.0-52.0); Hemoglobin 11.9 g/dL (14.1-18.0); Lymphocytes % 31.5 % (10-50); Mean Corpuscular HGB Conc 35.4 g/dL (31.8-35.4); Mean Corpuscular Hemoglobin 29.4 pg (27.0-31.2); Mean Corpuscular Volume 83.2 fl (80-94); Mean Platelet Volume 8.2 fl (7.4-10.4); Monocytes # 0.3 K/mm3 (0.1-1.0); Monocytes % 8.6 % (1.7-9.3); Neutrophils # 1.9 K/mm3 (1.8-7.8); Neutrophils % 58.2 % (37.0-80.0); Platelet Count 163 K/mm3 (142-424); Red Blood Count 4.04 M/mm3 (4.60-6.20); White Blood Count 3.2 K/mm3 (4.8-10.8)
[2020-12-10 15:31] LABS: Erythrocyte Sedimentation Rate 55 mm/hr (0-20)
[2020-12-10 15:46] LABS: C-Reactive Protein 5.4 mg/L (0-4)
== END ==
PROVIDERS: Visit Provider Orthopaedic Surgery
DX: Z09 Encounter for follow-up examination after completed treatment for conditions other than malignant neoplasm (principal)
CPT/HCPCS: 36415; 85025; 85651; 86140

== ENCOUNTER → 2020-12-23 11:58 | Outpatient (CLI) | payer OTHER, SELFPAY ==
[2020-12-23 12:14] LABS: Basophils % 0.9 % (0.1-2.0); Eosinophils # 0.1 K/mm3 (0.0-0.4); Eosinophils % 1.3 % (0.1-12.0); Hematocrit 38.9 % (42.0-52.0); Lymphocytes # 1.5 K/mm3 (0.7-4.5); Lymphocytes % 38.8 % (10-50); Mean Corpuscular HGB Conc 33.5 g/dL (31.8-35.4); Mean Corpuscular Hemoglobin 28.7 pg (27.0-31.2); Mean Corpuscular Volume 85.7 fl (80-94); Mean Platelet Volume 6.8 fl (7.4-10.4); Monocytes # 0.3 K/mm3 (0.1-1.0); Monocytes % 6.3 % (1.7-9.3); Neutrophils # 2.1 K/mm3 (1.8-7.8); Neutrophils % 52.8 % (37.0-80.0); Platelet Count 210 K/mm3 (142-424); Red Blood Count 4.54 M/mm3 (4.60-6.20); White Blood Count 3.9 K/mm3 (4.8-10.8)
[2020-12-23 12:49] LABS: Erythrocyte Sedimentation Rate 25 mm/hr (0-20)
[2020-12-23 13:14] LABS: C-Reactive Protein 4.6 mg/L (0-4)
== END ==
PROVIDERS: Visit Provider Orthopaedic Surgery
DX: Z09 Encounter for follow-up examination after completed treatment for conditions other than malignant neoplasm (principal)
CPT/HCPCS: 36415; 85025; 85651; 86140

== ENCOUNTER → 2021-01-14 09:24 | Outpatient (CLI) | payer OTHER, SELFPAY ==
[2021-01-14 09:55] LABS: Basophils % 0.9 % (0.1-2.0); Eosinophils # 0.1 K/mm3 (0.0-0.4); Eosinophils % 1.6 % (0.1-12.0); Hematocrit 36.6 % (42.0-52.0); Hemoglobin 12.4 g/dL (14.1-18.0); Lymphocytes # 1.1 K/mm3 (0.7-4.5); Lymphocytes % 32.5 % (10-50); Mean Corpuscular Volume 85.3 fl (80-94); Mean Platelet Volume 8.1 fl (7.4-10.4); Monocytes # 0.2 K/mm3 (0.1-1.0); Monocytes % 6.6 % (1.7-9.3); Neutrophils % 58.4 % (37.0-80.0); Platelet Count 172 K/mm3 (142-424); Red Blood Count 4.29 M/mm3 (4.60-6.20); Red Cell Distribution Width 14.2 % (11.5-17.5); White Blood Count 3.5 K/mm3 (4.8-10.8)
[2021-01-14 10:16] LABS: C-Reactive Protein 3.4 mg/L (0-4)
[2021-01-14 10:27] LABS: Erythrocyte Sedimentation Rate 60 mm/hr (0-20)
== END ==
PROVIDERS: Visit Provider Orthopaedic Surgery
DX: M16.11 Unilateral primary osteoarthritis, right hip (principal); Z09 Encounter for follow-up examination after completed treatment for conditions other than malignant neoplasm
CPT/HCPCS: 36415; 85025; 85651; 86140

== ENCOUNTER 2021-03-16 16:05 | Emergency (ER) | payer OTHER, SELFPAY ==
[2021-03-16] VITALS (8 sets, daily range): BP systolic 118–157; BP diastolic 72–99; PULSE 82–133; RESP 17–24; TEMP 36.7; O2SAT 95–98; BMI 37.9; BMI 38.0
--- NOTE | 2021-03-16 16:05 | ECG_ITS ---
APPROVED REPORT Exam: Resting ECG HR:132 bpm ECG Measurements Heart Rate 132 AXES NE 80 P QRSd 82 QRS 29 QT 386 T 39 QTc 571 Conclusion Sinus tachycardia with short NE Nonspecific T wave abnormality Abnormal ECG Electronically signed by : Jovan Polanco MD 03/16/2021 20:27:37
--- NOTE | 2021-03-16 16:16 | XR_ITS ---
PROCEDURE: XR CHEST PORTABLE CLINICAL HISTORY: cp COMPARISON: CR CXR1 CHEST-PORTABLE from 11/03/2013 CR CXR CHEST(2 VIEWS-NOT PORTABLE) from 04/01/2016 CR XR CHEST 2V from 08/05/2020 FINDINGS: The cardiomediastinal silhouette and pulmonary vascularity are within normal limits. The lungs are clear without infiltrates, suspicious nodules, or pleural effusions. No acute bony abnormalities. IMPRESSION: No acute findings. Dictated by: Zain Meyer MD 03/16/2021 16:30 Zain Meyer MD in [facility] 03/16/2021 16:30
[2021-03-16 16:40] LABS: Basophils % 0.6 % (0.1-2.0); Eosinophils # 0.1 K/mm3 (0.0-0.4); Eosinophils % 0.9 % (0.1-12.0); Hematocrit 43.9 % (42.0-52.0); Hemoglobin 15.3 g/dL (14.1-18.0); Lymphocytes # 2.3 K/mm3 (0.7-4.5); Lymphocytes % 36.2 % (10-50); Mean Corpuscular HGB Conc 34.9 g/dL (31.8-35.4); Mean Corpuscular Hemoglobin 30.5 pg (27.0-31.2); Mean Corpuscular Volume 87.2 fl (80-94); Mean Platelet Volume 7.2 fl (7.4-10.4); Monocytes # 0.3 K/mm3 (0.1-1.0); Neutrophils # 3.7 K/mm3 (1.8-7.8); Neutrophils % 57.2 % (37.0-80.0); Platelet Count 237 K/mm3 (142-424); Red Blood Count 5.03 M/mm3 (4.60-6.20); Red Cell Distribution Width 12.6 % (11.5-17.5); White Blood Count 6.4 K/mm3 (4.8-10.8)
[2021-03-16 16:41] LABS: Chloride 103 mmol/L (98-107); Sodium 141 mmol/L (136-145)
[2021-03-16 16:42] LABS: Potassium 4.1 mmoL/L (3.5-5.1)
[2021-03-16 16:45] LABS: Anion Gap 21.1 mEq/L (5-15); Blood Urea Nitrogen 38 mg/dl (9-20); Calcium 10.2 mg/dl (8.4-10.2); Carbon Dioxide 21 mmol/L (22.0-30.0); Creatinine Clearance Estimated 59 mL/min (50-200); Estimated Glomerular Filt Rate 30 ml/min (>60); GFR (African American) 37 ML/MIN (>60); Glucose 90 mg/dl (74-100)
[2021-03-16 16:57] LABS: Troponin I 0.02 ng/ml (0.00-0.034)
--- NOTE | 2021-03-16 18:49 | HMH.EDGENADL ---
ED Disposition Condition on Discharge: Fair - Critical Care Critical Care Time: No <Wander Valentino - Last Filed: 03/16/21 20:10> Condition on Discharge: Fair - Critical Care Critical Care Time: No <Vikas Conde - Last Filed: 03/16/21 21:32> Clinical Impression: LILA (acute kidney injury), Tachycardia, Liver mass Abdominal pain Qualifiers: Abdominal location: generalized Qualified Code(s): R10.84 - Generalized abdominal pain Disposition: Home, Self-Care Additional Instructions: Stop taking lisinopril/hydrochlorothiazide until you see your primary care provider. Call Dr. Delgadillo's office tomorrow to arrange follow-up appointment to be seen this week. You have a liver mass on your CAT scan that needs further follow-up. See Dr. Delgadillo about this. You need to have your abnormal labs rechecked as well. Return to the emergency department if worsening symptoms. Referrals: Rafael Ag APRN [Primary Care Provider] - Attestation: On 03/16/21, the high probability of a clinically significant, sudden or life threatening deterioration of the following system(s) required my full and direct attention, intervention and personal management. The time I documented below is in addition to time spent performing reported procedures but includes the following listed in this critical care notation. Medical Decision Making - Medical Records Medical records reviewed: Yes: I reviewed the patient's medical records. - Severino Inquiry Pt receiving controlled substance: No - Lab Data Lab results reviewed: Yes: I reviewed the patient's lab results. Result diagrams: 03/16/21 16:16 03/16/21 16:16 - ECG Data Tracing #1 I reviewed this ECG and interpreted as documented below: ECG initial impression date: 03/16/21 ECG initial impression time: 16:09 <Wander Valentino - Last Filed: 03/16/21 20:10> - Lab Data Result diagrams: 03/16/21 16:16 03/16/21 16:16 - CT Data CT Scan: Abdomen, Pelvis, Chest Time Received: 20:[address] Reviewed: Yes: I discussed the CT results w/the radiologist, I have viewed the radiologist's interpretation - Physician Consults Physician Consulted: Michael Time: 21:20 Reason -: Pt condition Comment/Response: Discussed all clinical findings. Recommends discharge. Stop lisinopril/hydrochlorothiazide until follow-up with primary care provider. <Vikas Conde - Last Filed: 03/16/21 21:32> Vital Signs: 03/16/21 16:09 03/16/21 17:00 03/16/21 17:30 Temperature 98.1 F Temperature Source Oral Pulse Rate 108 H 112 H Pulse Rate [Right Radial] 133 H Respiratory Rate 18 22 22 Blood Pressure 118/87 143/92 H Blood Pressure [Right Arm] 156/98 H Blood Pressure Mean 96 99 Blood Pressure Mean [Right Arm] 117 Blood Pressure Source [Right Arm] Automatic Cuff Blood Pressure Position [Right Arm] Sitting 02 Sat by Pulse Oximetry 95 95 96 Oxygen Delivery Method Room Air 03/16/21 18:00 Temperature Temperature Source Pulse Rate 113 H Pulse Rate [Right Radial] Respiratory Rate 24 Blood Pressure 121/73 Blood Pressure [Right Arm] Blood Pressure Mean 94 Blood Pressure Mean [Right Arm] Blood Pressure Source [Right Arm] Blood Pressure Position [Right Arm] 02 Sat by Pulse Oximetry 98 Oxygen Delivery Method - Lab Data Lab Results 03/16/21 16:16: WBC 6.4, RBC 5.03, Hgb 15.3, Hct 43.9, MCV 87.2, MCH 30.5, MCHC 34.9, RDW 12.6, Plt Count 237, MPV 7.2 L, Neut % (Auto) 57.2, Lymph % (Auto) 36.2, [place] % (Auto) 5.0, Eos % (Auto) 0.9, Baso % (Auto) 0.6, Neut # (Auto) 3.7, Lymph # (Auto) 2.3, [place] # (Auto) 0.3, Eos # (Auto) 0.1, Baso # (Auto) 0.0 03/16/21 16:16: Sodium 141, Potassium 4.1, Chloride 103, Carbon Dioxide 21 L, Anion Gap 21.1 H, BUN 38 H, Creatinine 2.20 H, Estimated Creat Clear 59, Estimated GFR 30 L, Est GFR ( Amer) 37 L, Glucose 90, Calcium 10.2, Troponin I 0.02 03/16/21 19:36: Troponin I 0.02 03/16/21 19:36: Total Bilirubin 0.5, Direct Bilirubin 0.1, Conjugated Bi
--- NOTE | 2021-03-16 18:55 | CT_ITS ---
PROCEDURE INFORMATION: Exam: CT Abdomen And Pelvis Without Contrast Exam date and time: 03/16/21 06:55 PM Age: 60 years old Clinical indication: Abdominal pain; Acute; Prior surgery; Surgery date: 6+ months; Surgery type: Prostate; Additional info: Tachycardia, cp, abd pain TECHNIQUE: Imaging protocol: Computed tomography of the abdomen and pelvis without contrast. Radiation optimization: All CT scans at this facility use at least one of these dose optimization techniques: automated exposure control; mA and/or kV adjustment per patient size (includes targeted exams where dose is matched to clinical indication); or iterative reconstruction. COMPARISON: CT ABDOMEN PELVIS W CON 06/29/20 03:33 PM FINDINGS: Tubes, catheters and devices: None noted. Lungs: Lung bases appear clear. Heart: No significant coronary calcifications. No cardiomegaly. No significant pericardial effusion. Liver: 5 cm slightly low-attenuation mass at the junction of the right and left lobes, incompletely evaluated without IV contrast. Triphasic cross-sectional imaging recommended to assess for malignancy. Gallbladder and bile ducts: Cholecystectomy. No ductal dilation. Pancreas: Normal. No ductal dilation. Spleen: Normal. No splenomegaly. Adrenal glands: Normal. No mass. Kidneys and ureters: Multiple left renal cysts incompletely evaluated without contrast. No hydronephrosis. Eccentric solid mass from the right lower pole of the kidney 17 mm unchanged since 06/19/2020, continued follow-up recommended. Stomach and bowel: Colonic diverticulosis without diverticulitis. No obstruction. No mucosal thickening. Appendix: No evidence of appendicitis. Intraperitoneal space: Unremarkable. No free air. No significant fluid collection. Retroperitoneal space: No significant retroperitoneal inflammatory changes are noted. Vasculature: Unremarkable. No abdominal aortic aneurysm. Lymph nodes: Unremarkable. No enlarged lymph nodes. Urinary bladder: Unremarkable as visualized. Reproductive: Unremarkable as visualized. Bones/joints: Right total hip arthroplasty. Vacuum disc L4-L5 and L5-S1. No acute fracture. Soft tissues: Unremarkable. IMPRESSION: 1. 5 cm subtle low-attenuation mass at the junction of the right and left hepatic lobes, incompletely evaluated without IV contrast. Triphasic cross-sectional imaging recommended to evaluate for malignancy. 2. 17 mm solid appearing eccentric mass from the right lower pole of the kidney is stable from comparison. 3. Cholecystectomy. 4. Right hip arthroplasty.
--- NOTE | 2021-03-16 18:55 | CT_ITS ---
PROCEDURE INFORMATION: Exam: CT Chest Without Contrast; Diagnostic Exam date and time: 03/16/21 06:55 PM Age: 60 years old Clinical indication: Pain; On breathing; Additional info: Tachycardia, cp, abd pain TECHNIQUE: Imaging protocol: Diagnostic computed tomography of the chest without contrast. Radiation optimization: All CT scans at this facility use at least one of these dose optimization techniques: automated exposure control; mA and/or kV adjustment per patient size (includes targeted exams where dose is matched to clinical indication); or iterative reconstruction. COMPARISON: CR XR CHEST PORTABLE 03/16/21 04:24 PM FINDINGS: Lungs: Unremarkable. No consolidation. No masses. Pleural spaces: Unremarkable. No pneumothorax. No pleural effusion. Heart: Unremarkable. No cardiomegaly. No pericardial effusion. Aorta: Unremarkable. No aortic aneurysm. Lymph nodes: Previous calcified adenopathy in the right hilum and subcarinal region. Liver: 5 cm low-dense area at the junction of the right and left lobes of the liver, concern for primary hepatic malignancy. Further evaluation with triphasic cross-sectional imaging recommended. Bones/joints: Unremarkable. No acute fracture. Soft tissues: Unremarkable. IMPRESSION: 5 cm low-dense area at the junction of the right and left lobes of the liver, concern for primary hepatic malignancy. Further evaluation with triphasic cross-sectional imaging recommended.
--- NOTE | 2021-03-16 19:21 | PC.NURSE ---
patient to radiology
[2021-03-16 20:05] LABS: Troponin I 0.02 ng/ml (0.00-0.034)
[2021-03-16 20:39] LABS: Alanine Aminotransferase 41 U/L (12-78); Alkaline Phosphatase 168 U/L (38-126); Aspartate Amino Transferase 41 U/L (17-59); Bilirubin,Direct 0.1 mg/dl (0.0-0.4); Bilirubin,Indirect 0.4 mg/dL (0.0-0.9); Bilirubin,Total 0.5 mg/dl (0.2-1.3); Bilirubin,Unconjugated 0.4 mg/dL (0.0-1.1)
[2021-03-16 20:40] LABS: Albumin Level 4.6 g/dl (3.5-5.0); Creatine Kinase 400 U/L (55-170)
--- NOTE | 2021-03-16 21:08 | PC.NURSE ---
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
[2021-03-16 21:10] LABS: Lipase 112 U/L (23-300)
[2021-03-16 21:28] LABS: Free Thyroxine Index 2.2 ug/dL (5.93-13.13); T4 (Thyroxine) 9.7 ug/dl (5.53-11.0); Triiodothryronine (T3) Uptake 23 % (23.5-40.5)
[2021-03-16 21:42] LABS: Thyroid Stimulating Hormone 7.58 uIU/mL (0.465-4.68)
== END 2021-03-16 22:10 | disposition home or self-care (01) ==
PROVIDERS: Family Medicine; Emergency Provider Emergency Medicine; PCP Nurse Practitioner Family
DX: N17.9 Acute kidney failure, unspecified (principal); R10.84 Generalized abdominal pain; R16.0 Hepatomegaly, not elsewhere classified; K21.9 Gastro-esophageal reflux disease without esophagitis; J44.9 Chronic obstructive pulmonary disease, unspecified; I10 Essential (primary) hypertension; F17.210 Nicotine dependence, cigarettes, uncomplicated; Z79.899 Other long term (current) drug therapy
CPT/HCPCS: 71045; 71250; 74176; 80048; 80076; 82550; 83690; 84436; 84443; 84479; 84484; 85025; 93005; 96365; 99282

== ENCOUNTER → 2021-03-31 08:49 | Outpatient (CLI) | payer OTHER, SELFPAY ==
--- NOTE | 2021-03-31 09:01 | CT_ITS ---
PROCEDURE INFORMATION: Exam: CT Abdomen Without And With Contrast, Liver Exam date and time: 03/31/2021 9:01 AM Age: 60 years old Clinical indication: Other: Possible liver mass TECHNIQUE: Imaging protocol: Computed tomography images of the abdomen without and with intravenous contrast. Radiation optimization: All CT scans at this facility use at least one of these dose optimization techniques: automated exposure control; mA and/or kV adjustment per patient size (includes targeted exams where dose is matched to clinical indication); or iterative reconstruction. Contrast material: ISOVUE; Contrast volume: 75 ml; Contrast route: IV; COMPARISON: CT ABDOMEN PELVIS WO CON 03/16/2021 7:40 PM FINDINGS: Liver: Mildly nodular surface contour of the liver. Ill-defined low-density region in hepatic segment 4A with some suggestion of progressive enhancement, particularly along the medial margin. The lesion has increased in size relative to 06/29/2020 and measures approximately 5.6 x 4.0 cm. Some patchy areas of enhancement are noted in the adjacent liver parenchyma. Gallbladder and bile ducts: Cholecystectomy. Pancreas: Normal. No ductal dilation. Spleen: Calcified splenic granulomas. Mild splenomegaly. Adrenals: Normal. No mass. Kidneys and ureters: Similar 1.8 cm rounded intermediate density lesion arising from the lower pole of the right kidney without definite enhancement, likely a mildly complex cyst. Punctate nonobstructing right upper pole renal calculus. Left renal cysts. No hydronephrosis. Stomach and bowel: Colonic diverticulosis. No evidence of bowel obstruction. Intraperitoneal space: Unremarkable. No free air. No significant fluid collection. Lymph nodes: Partially imaged calcified subcarinal lymph node. Vasculature: Moderate burden of atherosclerotic plaque in the abdominal aorta and branch vessels. No aneurysm. Bones/joints: Unremarkable. No acute fracture. No dislocation. Soft tissues: Unremarkable. IMPRESSION: 1. Ill-defined lesion in hepatic segment 4A has increased in size relative to 06/29/2020 and has suggestion of progressive enhancement. The findings are most concerning for malignancy. Liver protocol MRI could further evaluate as clinically warranted. 2. Similar 1.8 cm rounded intermediate density lesion arising from the lower pole the right kidney, favored to reflect a mildly complex cyst. COMMENTS: Consistent with the [employer] [place] [employer]'s Incidental Findings Committee white paper (J Am Louis Radiol 2018): Any incidental renal lesion less than 1 cm or classified as too small to characterize, or any incidental cystic renal lesion characterized as simple-appearing, is likely benign. No follow-up imaging is recommended for these lesions per consensus recommendations based on imaging criteria.
[2021-03-31 09:11] LABS: Blood Urea Nitrogen 11 mg/dl (9-20); Estimated Glomerular Filt Rate 114 ml/min (>60); GFR (African American) 138 ML/MIN (>60)
== END ==
PROVIDERS: PCP Nurse Practitioner Family; Visit Provider Nurse Practitioner Family
DX: R93.5 Abnormal findings on diagnostic imaging of other abdominal regions, including retroperitoneum (principal)
CPT/HCPCS: 36415; 74170; 82565; 84520

== ENCOUNTER → 2021-04-25 08:17 | Outpatient (CLI) | payer OTHER, SELFPAY ==
--- NOTE | 2021-04-25 08:28 | MR_ITS ---
PROCEDURE: MR ABDOMEN WO/W CON CLINICAL INDICATION: Ab Abd CT COMPARISON: CT ABDPELW/O CT ABD PELVIS W/O CONTRAST from 10/08/2016 CT ABDPELW/O CT ABD PELVIS W/O CONTRAST from 06/07/[address] ABDOMEN PELVIS W CON from 06/29/[address] ABDOMEN PELVIS WO CON from 03/16/[address] ABDOMEN WO/W CON from 03/31/2021 TECHNIQUE: Multiplanar multi echo sequences were performed without and with 24 mL ProHance gadolinium. FINDINGS: Again identified is a 7.2 x 6.2cm lesion in hepatic segment 4A with irregular margins which displaces a heterogeneous signal and does not demonstrate a definite central scar. On in and out of phase images, there is a 1.6 centimeter focus of signal dropout on opposed phase imaging suggesting a focus of intracytoplasmic fat. T2 signal characteristics revealed the lesion is hyperintense to hepatic parenchyma. The lesion does appear to restrict diffusion on diffusion weighted images however the ADC map demonstrates this represents T2 shine through. Post-contrast images demonstrate to the lesion is enhancing with progressive enhancement on venous phase imaging. 5 minutes delay postcontrast imaging demonstrates no significant lesion washout and persistent enhancement. There is a prominent lymph node at the GE junction measuring 13 millimeters. No other hepatic lesions are identified. No adrenal lesions are identified. There is an enlarged janice hepatis lymph node measuring 13 millimeters. There are multiple bilateral renal cysts. IMPRESSION: 1. Hepatic mass in segment 4A with irregular margins measuring 7.2 x 6.2cm exhibiting indeterminate MRI imaging features, concerning for metastatic neoplasm. Biopsy is recommended for histopathologic analysis. 2. Enlarged janice hepatis and GE junction lymph nodes stable, since 2016. 3. Bilateral renal cysts. Dictated by: Crista Garza MD 04/26/2021 12:34 Crista Garza MD in [facility] 04/26/2021 12:34
[2021-04-25 08:51] LABS: Chloride 103 mmol/L (98-107); Potassium 3.9 mmoL/L (3.5-5.1); Sodium 137 mmol/L (136-145)
[2021-04-25 08:54] LABS: Anion Gap 13.9 mEq/L (5-15); Blood Urea Nitrogen 13 mg/dl (9-20); Carbon Dioxide 24 mmol/L (22.0-30.0); Estimated Glomerular Filt Rate 98 ml/min (>60); GFR (African American) 119 ML/MIN (>60)
[2021-04-25 08:55] LABS: Calcium 9.2 mg/dl (8.4-10.2); Glucose 201 mg/dl (74-100)
== END ==
PROVIDERS: PCP Nurse Practitioner Family; Visit Provider Nurse Practitioner Family
DX: Z01.818 Encounter for other preprocedural examination (principal); K76.9 Liver disease, unspecified; R93.5 Abnormal findings on diagnostic imaging of other abdominal regions, including retroperitoneum
CPT/HCPCS: 36415; 74183; 80048; A9576

== ENCOUNTER → 2021-05-18 09:10 | Outpatient (CLI) | payer OTHER, SELFPAY ==
--- NOTE | 2021-05-18 09:11 | US_ITS ---
PROCEDURE: US LIVER CLINICAL INDICATION: Liver Mass COMPARISON: CT CT ABDOMEN WO/W CON from 03/31/2021 MR MR ABDOMEN WO/W CON from 04/25/2021 FINDINGS: PANCREAS: Unremarkable. No obvious mass or abnormal fluid collection. No ductal dilatation LIVER: There is a hypoechoic mass in the left hepatic lobe centrally and posteriorly. This measures 7 by 7 x 5 cm and extends to the hepatic dome. This corresponds to the CT and MRI findings. No significant increase in vascularity noted. It is somewhat difficult to visualize secondary to patient's body habitus and the position of the lesion near the hepatic dome. No other liver abnormalities apparent. RIGHT KIDNEY: Unremarkable. Normal size and echogenicity. No hydronephrosis GALLBLADDER: No gallstones, gallbladder wall thickening, pericholecystic fluid, or biliary dilatation. IMPRESSION: Hypoechoic hepatic mass in the left hepatic lobe segment 4 a at the dome of the liver. This is somewhat difficult to image secondary to patient's body habitus and the location of the lesion. This is suspicious for neoplasm and is concordant with other imaging studies. Suggest interventional radiology consult at a tertiary care center for possibility of percutaneous biopsy.. Dictated by: Zain Meyer MD 05/19/2021 08:11 Zain Meyer MD in [facility] 05/19/2021 08:11
== END ==
PROVIDERS: PCP Nurse Practitioner Family; Visit Provider Nurse Practitioner Family
DX: R16.0 Hepatomegaly, not elsewhere classified (principal)
CPT/HCPCS: 76705

== ENCOUNTER → 2021-06-14 10:25 | Outpatient (CLI) | payer OTHER, SELFPAY | PROVIDERS: Visit Provider Student in an Organized Health Care Education/Training Program | DX: Z01.812 Encounter for preprocedural laboratory examination (principal); Z11.52 Encounter for screening for COVID-19 | CPT/HCPCS: C9803; U0003; U0005 ==

== ENCOUNTER → 2021-08-16 13:01 | Outpatient (CLI) | payer OTHER, SELFPAY ==
--- NOTE | 2021-08-16 13:04 | XR_ITS ---
FINAL REPORT CLINICAL HISTORY: L Hip pain COMPARISON: 11/08/2020 FINDINGS: LEFT HIP Four views demonstrate no acute fracture or dislocation. There are postoperative changes from right hip arthroplasty. Postoperative changes are also seen in the lower midline pelvis. There are moderate degenerative changes of the left hip with subchondral cysts in the superior left femoral head and superior left acetabulum. IMPRESSION: Degenerative and postoperative changes. No significant change from prior. Reviewed, Interpreted and Dictated by Drew Garcia III, MD Transcribed by Deanne Pillai Authenticated by Drew Garcia III, MD on 08/16/2021 02:35:23 PM [facility]
== END ==
PROVIDERS: PCP Nurse Practitioner Family; Visit Provider Orthopaedic Surgery
DX: M25.552 Pain in left hip (principal)
CPT/HCPCS: 73502

== ENCOUNTER 2021-09-18 14:10 | Emergency (ER) | payer OTHER, SELFPAY ==
[2021-09-18 13:55] VITALS: BP 137/107; PULSE 100; RESP 18; TEMP 36.4; O2SAT 97; BMI 37.6
[2021-09-18 14:17] VITALS: BP 134/100
[2021-09-18 14:20] LABS: POC Glucose,Bedside 477 (70-110)
[2021-09-18 14:26] LABS: Basophils # 0.1 K/mm3 (0-0.2); Basophils % 2.6 % (0.1-2.0); Hematocrit 46.4 % (42.0-52.0); Hemoglobin 15.7 g/dL (14.1-18.0); Lymphocytes # 1.5 K/mm3 (0.7-4.5); Lymphocytes % 36.6 % (10-50); Mean Corpuscular HGB Conc 33.8 g/dL (31.8-35.4); Mean Corpuscular Hemoglobin 29.9 pg (27.0-31.2); Mean Corpuscular Volume 88.3 fl (80-94); Mean Platelet Volume 8.3 fl (7.4-10.4); Monocytes # 0.2 K/mm3 (0.1-1.0); Monocytes % 4.6 % (1.7-9.3); Neutrophils # 2.3 K/mm3 (1.8-7.8); Neutrophils % 55.1 % (37.0-80.0); Platelet Count 207 K/mm3 (142-424); Red Blood Count 5.25 M/mm3 (4.60-6.20); White Blood Count 4.1 K/mm3 (4.8-10.8)
[2021-09-18 14:27] LABS: Chloride 95 mmol/L (98-107); Sodium 130 mmol/L (136-145)
[2021-09-18 14:28] LABS: Potassium 5.1 mmoL/L (3.5-5.1)
[2021-09-18 14:30] LABS: Alanine Aminotransferase 35 U/L (12-78); Aspartate Amino Transferase 38 U/L (17-59); Blood Urea Nitrogen 21 mg/dl (9-20); Creatinine Clearance Estimated 131 mL/min (50-200); Estimated Glomerular Filt Rate 75 ml/min (>60); GFR (African American) 91 ML/MIN (>60)
[2021-09-18 14:31] LABS: Albumin Level 4.6 g/dl (3.5-5.0); Alkaline Phosphatase 238 U/L (38-126); Anion Gap 16.1 mEq/L (5-15); Calcium 9.5 mg/dl (8.4-10.2); Carbon Dioxide 24 mmol/L (22.0-30.0); Globulin 4.5 g/dL (1.3-3.2); Total Protein,Serum 9.1 g/dl (6.3-8.2)
[2021-09-18 14:36] LABS: Glucose 413 mg/dl (74-100)
[2021-09-18 14:59] LABS: Acetone, Serum (Rapid) None Detected (None Detect)
[2021-09-18 15:27] LABS: VBG Base Excess -4.8 mmol/L (-2.4-2.3); VBG HCO3 21.1 mmol/L (23-30); VBG Oxygen Saturation 70.4 % (50-70); VBG PCO2 40.9 mmol/L (35-51); VBG PH 7.33 mmol/L (7.31-7.41); VBG PO2 39.2 mmol/L (28-40); VBG Total CO2 22.4 mmol/L (23-27)
[2021-09-18 16:05] LABS: Microscopic, Urine URINE MICROSCOPIC (MICROSCOPIC)
[2021-09-18 16:06] LABS: Appearance,Urine CLEAR (Clear); Bilirubin,Urine Negative (Negative); Blood, Urine 1+ (Negative); Color,Urine YELLOW (Yellow); Glucose,Urine (UA) 3+ (Negative); Ketones,Urine Negative (Negative); Leukocyte Esterase,Urine Negative (Negative); Nitrate,Urine Negative (Negative); Protein,Urine 2+ (Negative); Specific Gravity, Urine 1.025 (1.005-1.030); Urobilinogen,Urine 0.2 EU/dl (0.2)
[2021-09-18 16:18] LABS: Squamous Epithelial Cell,Urine Occasional #/hpf (0-5)
--- NOTE | 2021-09-18 17:32 | HMH.EDGENADL ---
ED Disposition Clinical Impression: Hyperglycemia Diabetes mellitus Qualifiers: Diabetes mellitus type: type 2 Diabetes mellitus fci insulin use: without exterminator termite use Diabetes mellitus complication status: without complication Qualified Code(s): E11.9 - Type 2 diabetes mellitus without complications Disposition: Home, Self-Care Condition on Discharge: Good Instructions: DI for Hyperglycemia -- Adult Additional Instructions: See Dr. Delgadillo/Jd Pandya in his office tomorrow at 10 AM or 1 PM. Referrals: Jd Pandya APRN [Primary Care Provider] - - Critical Care Critical Care Time: No Attestation: On 09/18/21, the high probability of a clinically significant, sudden or life threatening deterioration of the following system(s) required my full and direct attention, intervention and personal management. The time I documented below is in addition to time spent performing reported procedures but includes the following listed in this critical care notation. Medical Decision Making - Severino Inquiry Pt receiving controlled substance: No Vital Signs: 09/18/21 13:55 Temperature 97.5 F L Temperature Source Oral Pulse Rate [Left Radial] 100 H Respiratory Rate 18 Blood Pressure [Right Arm] 137/107 H Blood Pressure Mean [Right Arm] 117 Blood Pressure Source [Right Arm] Automatic Cuff Blood Pressure Position [Right Arm] Sitting 02 Sat by Pulse Oximetry 97 Oxygen Delivery Method Room Air - Lab Data Lab Results 09/18/21 14:01: POC Glucose 477 H* 09/18/21 14:12: WBC 4.1 L, RBC 5.25, Hgb 15.7, Hct 46.4, MCV 88.3, MCH 29.9, MCHC 33.8, RDW 13.0, Plt Count 207, MPV 8.3, Neut % (Auto) 55.1, Lymph % (Auto) 36.6, [place] % (Auto) 4.6, Eos % (Auto) 1.0, Baso % (Auto) 2.6 H, Neut # (Auto) 2.3, Lymph # (Auto) 1.5, [place] # (Auto) 0.2, Eos # (Auto) 0.0, Baso # (Auto) 0.1 09/18/21 14:12: Sodium 130 L, Potassium 5.1, Chloride 95 L, Carbon Dioxide 24, Anion Gap 16.1 H, BUN 21 H, Creatinine 1.00, Estimated Creat Clear 131, Estimated GFR 75, Est GFR ( Amer) 91, Glucose 413 H*, Calcium 9.5, Total Bilirubin 1.0, AST 38, ALT 35, Alkaline Phosphatase 238 H, Total Protein 9.1 H, Albumin 4.6, Globulin 4.5 H, Albumin/Globulin Ratio 1.0 L, Acetone Level None detected 09/18/21 15:21: VBG pH 7.33, VBG pCO2 40.9, VBG pO2 39.2, VBG HCO3 21.1 L, VBG Total CO2 22.4 L, VBG O2 Saturation 70.4 H, VBG Base Excess -4.8 L 09/18/21 15:27: Urine Color Yellow, Urine Appearance Clear, Urine pH 6.0, Ur Specific [place] 1.025, Urine Protein 2+, Urine Glucose (UA) 3+, Urine Ketones Negative, Urine Blood 1+, Urine Nitrate Negative, Urine Bilirubin Negative, Urine Urobilinogen 0.2, Ur Leukocyte Esterase Negative, Urine RBC 5-10, Urine WBC None, Ur Squamous Epith Cells Occasional, Urine Bacteria None 09/18/21 16:57: POC Glucose 391 H* Result diagrams: 09/18/21 14:12 09/18/21 14:12 Orders (Tests/Meds): ED MEDICATIONS Generic Name Dose Route Start Last Admin Trade Name Freq PRN Reason Stop Dose Admin Sodium Chloride 10 ml 09/18/21 14:17 Sodium Chloride 0.9% 10ml Flush Syringe IV 10/18/21 14:16 NEEDED PRN Maintain IV Site Discontinued Medications Generic Name Dose Route Start Last Admin Trade Name Freq PRN Reason Stop Dose Admin Lactated Ringer's 1,000 mls @ 999 mls/hr 09/18/21 14:30 09/18/21 14:23 Lactated Ringer's 1000 Ml Bag IV 09/18/21 15:30 999 mls/hr .Q1H1M MARTIN Administration Insulin Human Lispro 15 unit 09/18/21 17:42 Humalog 100 Units/Ml 3ml Vial (Ssi) SQ 09/18/21 17:43 ONCE ONE Medical Decision Narrative: The patient has hyperglycemia without diabetic ketoacidosis. Known diabetes but currently not on any medications. Previously on 70/30 insulin, which he still has at home. Advise close follow-up with Dr. Delgadillo in his office tomorrow to be reinstituted insulin regimen. The patient also needs medical clearance for a hip replacement to be performed in the near future. I advised him that
[2021-09-18 17:47] LABS: POC Glucose,Bedside 391 (70-110)
[2021-09-18 18:54] VITALS: BP 131/86; PULSE 91; RESP 18; TEMP 36.4; O2SAT 99
== END 2021-09-18 18:56 | disposition home or self-care (01) ==
PROVIDERS: Emergency Provider Emergency Medicine; PCP Nurse Practitioner Family
DX: E11.65 Type 2 diabetes mellitus with hyperglycemia (principal); I10 Essential (primary) hypertension; N28.9 Disorder of kidney and ureter, unspecified; K21.9 Gastro-esophageal reflux disease without esophagitis; E78.5 Hyperlipidemia, unspecified; E66.9 Obesity, unspecified; J44.9 Chronic obstructive pulmonary disease, unspecified; F17.210 Nicotine dependence, cigarettes, uncomplicated; Z79.4 Long term (current) use of insulin; Z79.899 Other long term (current) drug therapy; Z88.0 Allergy status to penicillin; Z68.37 Body mass index [BMI] 37.0-37.9, adult; Z96.641 Presence of right artificial hip joint
CPT/HCPCS: 80053; 81001; 82009; 82803; 82962; 85025; 96361; 96365; 99283

== ENCOUNTER → 2021-10-05 17:38 | Outpatient (CLI) | payer OTHER, SELFPAY ==
[2021-10-05 14:05] LABS: Basophils % 0.8 % (0.1-2.0); Eosinophils % 0.4 % (0.1-12.0); Hematocrit 40.9 % (42.0-52.0); Hemoglobin 13.7 g/dL (14.1-18.0); Lymphocytes # 1.1 K/mm3 (0.7-4.5); Lymphocytes % 32.5 % (10-50); Mean Corpuscular HGB Conc 33.4 g/dL (31.8-35.4); Mean Corpuscular Hemoglobin 29.9 pg (27.0-31.2); Mean Corpuscular Volume 89.4 fl (80-94); Mean Platelet Volume 8.5 fl (7.4-10.4); Monocytes # 0.2 K/mm3 (0.1-1.0); Neutrophils % 60.2 % (37.0-80.0); Platelet Count 173 K/mm3 (142-424); Red Blood Count 4.57 M/mm3 (4.60-6.20); Red Cell Distribution Width 13.2 % (11.5-17.5); White Blood Count 3.3 K/mm3 (4.8-10.8)
[2021-10-05 14:19] LABS: Alanine Aminotransferase 29 U/L (12-78); Albumin Level 4.1 g/dl (3.5-5.0); Albumin/Globulin Ratio 1.1 (1.1-1.8); Alkaline Phosphatase 179 U/L (38-126); Anion Gap 11.4 mEq/L (5-15); Aspartate Amino Transferase 31 U/L (17-59); Blood Urea Nitrogen 10 mg/dl (9-20); Calcium 9.4 mg/dl (8.4-10.2); Carbon Dioxide 25 mmol/L (22.0-30.0); Chloride 105 mmol/L (98-107); Chol/HDL Ratio 6.2 (1-3.5); Cholesterol 181 mg/dl (140-200); Estimated Glomerular Filt Rate 114 ml/min (>60); GFR (African American) 138 ML/MIN (>60); Globulin 3.7 g/dL (1.3-3.2); Glucose 206 mg/dl (74-100); HDL Cholesterol 29 mg/dl (40-60); Potassium 4.4 mmoL/L (3.5-5.1); Sodium 137 mmol/L (136-145); Total Protein,Serum 7.8 g/dl (6.3-8.2)
[2021-10-05 14:26] LABS: Triglycerides 428 mg/dl (30-150)
[2021-10-05 14:30] LABS: Direct LDL Cholesterol 59.04 mg/dL (100-129)
[2021-10-05 14:39] LABS: T4 (Thyroxine) 8.9 ug/dl (5.53-11.0)
[2021-10-05 14:52] LABS: Thyroid Stimulating Hormone 1.85 uIU/mL (0.465-4.68)
[2021-10-05 15:12] LABS: Hemoglobin A1C 9.4 % (4.0-6.0)
[2021-10-05 15:59] LABS: 25-OH Vitamin D, Total 24.4 ng/mL (30-100)
[2021-10-06 09:24] LABS: C-Peptide 4.6 ng/mL (1.1-4.4)
== END ==
PROVIDERS: Visit Provider Nurse Practitioner Family
DX: E11.9 Type 2 diabetes mellitus without complications (principal); E55.9 Vitamin D deficiency, unspecified; Z79.4 Long term (current) use of insulin
CPT/HCPCS: 80053; 80061; 82043; 82306; 83036; 84436; 84443; 84681; 85025

== ENCOUNTER → 2021-12-22 07:07 | Outpatient (CLI) | payer OTHER, SELFPAY ==
[2021-12-21 19:24] LABS: Hemoglobin A1C 5.6 % (4.0-6.0)
== END ==
PROVIDERS: PCP Nurse Practitioner Family; Visit Provider Nurse Practitioner Family
DX: E11.9 Type 2 diabetes mellitus without complications (principal); Z79.4 Long term (current) use of insulin
CPT/HCPCS: 83036

== ENCOUNTER → 2022-01-05 07:54 | Outpatient (CLI) | payer OTHER, SELFPAY ==
--- NOTE | 2022-01-05 07:57 | CA_ITS ---
FINAL REPORT TECHNIQUE: Grayscale, color Doppler and duplex Doppler ultrasound of the kidneys, aorta and renal arteries was performed. Multiple velocities were measured. CLINICAL HISTORY: HTN,DM FINDINGS: Aorta velocity: 85.2 cm/sec Right kidney: 12.1 cm. No evidence of hydronephrosis or mass. Right intrarenal RI: 0.58 Right renal artery velocity: 142 cm/sec. Right RAR (Renal artery-Aortic Ratio): 1.66 Left Kidney: 13.9 cm. No evidence of hydronephrosis or mass. Left intrarenal RI: 0.7 Left renal artery velocity: 163 cm/sec. Left RAR (Renal Artery-Aortic Ratio): 1.91 Note is made of bilateral renal cysts. IMPRESSION: No evidence of significant renal artery stenosis. CT angiogram or postcontrast MR angiogram would be more sensitive for evaluation of possible renal artery stenosis. Reviewed, Interpreted and Dictated by Drew Garcia III, MD Transcribed by Liliana Dave Authenticated and [facility]
[2022-01-05 09:57] LABS: Chloride 103 mmol/L (98-107); Sodium 136 mmol/L (136-145)
[2022-01-05 10:00] LABS: Blood Urea Nitrogen 16 mg/dl (9-20); Estimated Glomerular Filt Rate 98 ml/min (>60); GFR (African American) 118 ML/MIN (>60)
[2022-01-05 10:01] LABS: Calcium 9.7 mg/dl (8.4-10.2); Carbon Dioxide 26 mmol/L (22.0-30.0); Glucose 137 mg/dl (74-100)
[2022-01-05 10:09] LABS: NT Pro Brain Natriuretic Pep. 76.7 pg/mL (0-125)
== END ==
PROVIDERS: PCP Nurse Practitioner Family; Visit Provider Internal Medicine Cardiovascular Disease
DX: R06.00 Dyspnea, unspecified (principal); Z01.810 Encounter for preprocedural cardiovascular examination; R00.0 Tachycardia, unspecified; I10 Essential (primary) hypertension; E11.9 Type 2 diabetes mellitus without complications; E78.2 Mixed hyperlipidemia; J44.9 Chronic obstructive pulmonary disease, unspecified; R60.0 Localized edema; R94.31 Abnormal electrocardiogram [ECG] [EKG]; Z79.4 Long term (current) use of insulin
CPT/HCPCS: 36415; 80048; 83880; 93976

== ENCOUNTER 2022-03-29 11:19 | Emergency (ER) | payer OTHER, SELFPAY ==
[2022-03-29] VITALS (7 sets, daily range): BP systolic 126–166; BP diastolic 81–95; PULSE 94–99; RESP 18; TEMP 36.8; O2SAT 98–99; BMI 39.0
--- NOTE | 2022-03-29 11:30 | PC.NURSE ---
pt given urinal to provide urine sample, unable to at this time
--- NOTE | 2022-03-29 11:35 | CT_ITS ---
FINAL REPORT TECHNIQUE: Noncontrast exam CLINICAL HISTORY: R flank pain COMPARISON: March 16, 2021 FINDINGS: Abdomen: Lung bases are clear. Previously described liver lesion is not appreciated on this exam. Cirrhotic appearance of the liver with splenomegaly. Stranding surrounding the pancreas and proximal small bowel may be due to pancreatitis or peptic ulcer disease. Hazy density throughout the mesenteric fat may be extension of inflammation associated with pancreatitis or peptic ultrasound days. Indeterminate bilateral renal masses cannot be characterize without contrast, stable from prior. Pelvis: Normal appendix. Moderate sigmoid diverticulosis. Trace free fluid. Wall thickening of the colon suggesting colitis. IMPRESSION: Stranding in the retroperitoneum which could be due to pancreatitis or peptic ulcer disease. Colon wall thickening raising the question of colitis. No evidence of urinary tract stone disease or obstruction. Cirrhosis with findings of portal hypertension. Reviewed, Interpreted and Dictated by Ana Hughes MD Transcribed by Malachi Brown Authenticated and . [facility]
[2022-03-29 11:43] LABS: Basophils % 1.3 % (0.1-2.0); Eosinophils % 0.8 % (0.1-12.0); Hematocrit 33.8 % (42.0-52.0); Hemoglobin 11.2 g/dL (14.1-18.0); Lymphocytes # 0.7 K/mm3 (0.7-4.5); Lymphocytes % 22.7 % (10-50); Mean Corpuscular HGB Conc 33.2 g/dL (31.8-35.4); Mean Corpuscular Hemoglobin 29.6 pg (27.0-31.2); Mean Corpuscular Volume 89.3 fl (80-94); Mean Platelet Volume 7.8 fl (7.4-10.4); Monocytes # 0.2 K/mm3 (0.1-1.0); Monocytes % 5.7 % (1.7-9.3); Neutrophils # 2.1 K/mm3 (1.8-7.8); Neutrophils % 69.5 % (37.0-80.0); Platelet Count 178 K/mm3 (142-424); Red Blood Count 3.78 M/mm3 (4.60-6.20)
[2022-03-29 11:48] LABS: Alanine Aminotransferase 31 U/L (12-78); Albumin Level 3.9 g/dl (3.5-5.0); Albumin/Globulin Ratio 0.9 (1.1-1.8); Alkaline Phosphatase 241 U/L (38-126); Anion Gap 12.4 mEq/L (5-15); Aspartate Amino Transferase 49 U/L (17-59); Bilirubin,Total 1.3 mg/dl (0.2-1.3); Blood Urea Nitrogen 12 mg/dl (9-20); Calcium 9.3 mg/dl (8.4-10.2); Carbon Dioxide 27 mmol/L (22.0-30.0); Chloride 101 mmol/L (98-107); Creatinine Clearance Estimated 136 mL/min (50-200); Estimated Glomerular Filt Rate 98 ml/min (>60); GFR (African American) 118 ML/MIN (>60); Globulin 4.3 g/dL (1.3-3.2); Glucose 128 mg/dl (74-100); Lipase 36 U/L (23-300); Potassium 4.4 mmoL/L (3.5-5.1); Sodium 136 mmol/L (136-145); Total Protein,Serum 8.2 g/dl (6.3-8.2)
--- NOTE | 2022-03-29 13:31 | HMH.EDABDPAI ---
Discharge Plan Disposition Patient Disposition: Home, Self-Care Condition: Good Prescriptions Prescriptions: New promethazine 25 mg Tablet 25 mg PO BID PRN (Reason: Nausea) Qty: 10 12RF hydrocodone-acetaminophen 5-325 mg tablet 1 tab PO Q12H 2 Days Qty: 4 0RF No Action valsartan 80 mg tablet 80 mg PO DAILY Qty: 90 3RF hydrocodone-acetaminophen 5-325 mg tablet 1 tab PO Q6H PRN (Reason: pain) Qty: 14 0RF (DME) FreeStyle Rosana 14 Day [place] Misc See Rx Instructions MISCELLANE .MEDSUPPLY Qty: 1 0RF Rx Instructions: As directed insulin asp prt-insulin aspart [Novolog Mix 70-30FlexPen U-100] 100 unit/mL (70-30) insulin pen 15 unit SQ BID Qty: 15 10RF alcohol swabs [Alcohol Prep Pads] Pads, Medicated 1 pad TOPICAL TID Qty: 100 3RF valsartan-hydrochlorothiazide 160-12.5 mg tablet 1 tab PO DAILY Qty: 30 5RF amlodipine [Norvasc] 5 mg tablet 5 mg PO DAILY Qty: 30 5RF metoprolol succinate 50 mg tablet extended release 24 hr 50 mg PO DAILY Qty: 90 3RF oxybutynin chloride 5 mg tablet extended release 24hr 5 mg PO DAILY Qty: 30 2RF (DME) pen needle, diabetic [Droplet Pen Needle] 32 gauge x 3/16 needle See Rx Instructions .ROUTE .MEDSUPPLY Qty: 50 0RF Rx Instructions: As directed Trulicity 0.75 mg/0.5 mL pen injector 0.75 mg SQ WEEKLY Qty: 2 2RF (DME) FreeStyle Rosana 14 Day Sensor Kit See Rx Instructions MISCELLANE .MEDSUPPLY Qty: 1 12RF Rx Instructions: As directed (DME) Accu-Chek Guide test strips Strip See Rx Instructions .Route Qty: 100 2RF Rx Instructions: Test 2-3 times daily or As directed ergocalciferol (vitamin D2) 1,250 mcg (50,000 unit) capsule See Rx Instructions .ROUTE .COMPLEX Qty: 7 0RF Dose Instruction: Take 1 capsule by mouth once a week Rx Instructions: Take 1 capsule by mouth once a week cyclobenzaprine 10 mg tablet See Rx Instructions .ROUTE .COMPLEX Qty: 60 0RF Dose Instruction: Take 1 tablet by mouth three times daily as needed for muscle spasm Rx Instructions: Take 1 tablet by mouth three times daily as needed for muscle spasm simvastatin 10 mg tablet See Rx Instructions .ROUTE .COMPLEX Qty: 90 0RF Dose Instruction: Take 1 tablet by mouth once daily Rx Instructions: Take 1 tablet by mouth once daily omeprazole 20 MG capsule,delayed release(DR/EC) 20 mg PO DAILY Referrals Follow up/Referrals: Jd Pandya APRN [Primary Care Provider] - See instructions Shane Novoa MD [Staff Physician] - See instructions Clinical Impressions Clinical Impression: Gastritis Instructions Patient Instructions: DI for Acute Abdominal Pain Discharge ED Provider: Vikas Barber Abdominal Pain HPI General Chief Complaint: Abdominal Pain Stated Complaint: abdomen pain Time Seen by Provider: 03/29/22 12:00 Mode of Arrival: EMS Source of Information: Patient Limitations: No Limitations Description of Symptoms (Recalled from ER Triage Doc. by RN): c/o bladder pain/lower abdomen pain that goes into his right side for 2 days History of Present Illness HPI narrative: This is a 61-year-old male presented to the emergency department with some lower abdominal pain for the last 2 days. Patient has had a dull pain in the lower abdomen. He states that it started from the right side of his back and wraps around to the front lower area. States that it has been consistent in nature. Has had some mild nausea, however no vomiting. Denies any diarrhea. Denies any hematuria or dysuria. No testicular pain. No fevers or chills. No headache or change in vision. No focal weakness. No chest pain or shortness of breath. Related Data Home Medications Medication Instructions Recorded Confirmed omeprazole 20 mg capsule,delayed 20 mg PO DAILY GERD 06/30/20 03/22/22 release Previous Rx's Medication Instructions Recorded metoprolol succ
[2022-03-29 14:06] LABS: Appearance,Urine CLEAR (Clear); Blood, Urine TRACE-I (Negative); Color,Urine AMBER (Yellow); Glucose,Urine (UA) Negative (Negative); Ketones,Urine Negative (Negative); Leukocyte Esterase,Urine Negative (Negative); Microscopic, Urine URINE MICROSCOPIC (MICROSCOPIC); Nitrate,Urine Negative (Negative); Protein,Urine 2+ (Negative); Specific Gravity, Urine 1.025 (1.005-1.030)
[2022-03-29 14:12] LABS: Bilirubin,Urine 1+ (Negative)
[2022-03-29 14:25] LABS: Bacteria,Urine Trace /lpf; Squamous Epithelial Cell,Urine Occasional #/hpf (0-5)
== END 2022-03-29 15:15 | disposition home or self-care (01) ==
PROVIDERS: Emergency Provider Emergency Medicine; PCP Nurse Practitioner Family
DX: K29.70 Gastritis, unspecified, without bleeding (principal)
CPT/HCPCS: 74176; 80053; 81001; 83690; 85025; 96365; 96375; 96376; 99284; J2405

== ENCOUNTER 2022-04-02 12:21 | Emergency (ER) | payer OTHER, SELFPAY ==
[2022-04-02] VITALS (11 sets, daily range): BP systolic 126–157; BP diastolic 74–97; PULSE 74–100; RESP 16–20; TEMP 36.6; O2SAT 98–100; BMI 37.6
--- NOTE | 2022-04-02 12:22 | XR_ITS ---
PROCEDURE INFORMATION: Exam: XR Chest Exam date and time: 04/02/2022 12:51 PM Age: 61 years old Clinical indication: Pain; Chest pressure; Additional info: Chest pain TECHNIQUE: Imaging protocol: Radiologic exam of the chest. Views: 1 view. COMPARISON: CT CHEST WO CON 03/16/2021 7:40 PM FINDINGS: Lungs: Unremarkable. No consolidation. Pleural spaces: Unremarkable. No pleural effusion. No pneumothorax. Heart/Mediastinum: Unremarkable. No cardiomegaly. Bones/joints: Unremarkable. IMPRESSION: No acute findings.
--- NOTE | 2022-04-02 12:26 | ECG_ITS ---
APPROVED REPORT Exam: Resting ECG HR:97 bpm ECG Measurements Heart Rate 97 AXES DE 162 P 35 QRSd 85 QRS 5 QT 326 T 40 QTc 380 Conclusion SINUS RHYTHM MODERATE VOLTAGE CRITERIA FOR LVH, CONSIDER NORMAL VARIANT [MEETS CRITERIA IN ONE OF: R(aVL), S(V1), R(V5), R(V5/V6)+S(V1)] BORDERLINE ECG UNCONFIRMED REPORT Electronically signed by : Jovan Polanco MD 04/03/2022 20:07:17
[2022-04-02 12:34] LABS: Basophils % 0.8 % (0.1-2.0); Eosinophils % 1.2 % (0.1-12.0); Hematocrit 34.8 % (42.0-52.0); Hemoglobin 11.5 g/dL (14.1-18.0); Lymphocytes # 0.7 K/mm3 (0.7-4.5); Mean Corpuscular Hemoglobin 30.1 pg (27.0-31.2); Mean Corpuscular Volume 91.2 fl (80-94); Mean Platelet Volume 7.7 fl (7.4-10.4); Monocytes # 0.2 K/mm3 (0.1-1.0); Monocytes % 6.6 % (1.7-9.3); Neutrophils # 1.9 K/mm3 (1.8-7.8); Neutrophils % 67.4 % (37.0-80.0); Platelet Count 164 K/mm3 (142-424); Red Blood Count 3.81 M/mm3 (4.60-6.20); Red Cell Distribution Width 12.8 % (11.5-17.5); White Blood Count 2.8 K/mm3 (4.8-10.8)
[2022-04-02 12:36] LABS: Chloride 102 mmol/L (98-107); Potassium 4.6 mmoL/L (3.5-5.1); Sodium 139 mmol/L (136-145)
[2022-04-02 12:38] LABS: Blood Urea Nitrogen 14 mg/dl (9-20); Creatinine Clearance Estimated 131 mL/min (50-200); Estimated Glomerular Filt Rate 98 ml/min (>60); GFR (African American) 118 ML/MIN (>60)
[2022-04-02 12:39] LABS: Alanine Aminotransferase 31 U/L (12-78); Albumin Level 4.1 g/dl (3.5-5.0); Albumin/Globulin Ratio 0.9 (1.1-1.8); Alkaline Phosphatase 253 U/L (38-126); Anion Gap 13.6 mEq/L (5-15); Aspartate Amino Transferase 57 U/L (17-59); Bilirubin,Total 0.8 mg/dl (0.2-1.3); Calcium 9.1 mg/dl (8.4-10.2); Carbon Dioxide 28 mmol/L (22.0-30.0); Globulin 4.6 g/dL (1.3-3.2); Glucose 112 mg/dl (74-100); Lipase 44 U/L (23-300); Total Protein,Serum 8.7 g/dl (6.3-8.2)
--- NOTE | 2022-04-02 12:39 | HMH.EDGENADL ---
Discharge Plan Disposition Patient Disposition: Home, Self-Care Condition: Good Chief Complaint: PAIN Prescriptions Prescriptions: No Action valsartan 80 mg tablet 80 mg PO DAILY Qty: 90 3RF hydrocodone-acetaminophen 5-325 mg tablet 1 tab PO Q6H PRN (Reason: pain) Qty: 14 0RF (DME) FreeStyle Rosana 14 Day [place] Misc See Rx Instructions MISCELLANE .MEDSUPPLY Qty: 1 0RF Rx Instructions: As directed insulin asp prt-insulin aspart [Novolog Mix 70-30FlexPen U-100] 100 unit/mL (70-30) insulin pen 15 unit SQ BID Qty: 15 10RF alcohol swabs [Alcohol Prep Pads] Pads, Medicated 1 pad TOPICAL TID Qty: 100 3RF valsartan-hydrochlorothiazide 160-12.5 mg tablet 1 tab PO DAILY Qty: 30 5RF amlodipine [Norvasc] 5 mg tablet 5 mg PO DAILY Qty: 30 5RF metoprolol succinate 50 mg tablet extended release 24 hr 50 mg PO DAILY Qty: 90 3RF oxybutynin chloride 5 mg tablet extended release 24hr 5 mg PO DAILY Qty: 30 2RF (DME) pen needle, diabetic [Droplet Pen Needle] 32 gauge x 3/16 needle See Rx Instructions .ROUTE .MEDSUPPLY Qty: 50 0RF Rx Instructions: As directed Trulicity 0.75 mg/0.5 mL pen injector 0.75 mg SQ WEEKLY Qty: 2 2RF (DME) FreeStyle Rosana 14 Day Sensor Kit See Rx Instructions MISCELLANE .MEDSUPPLY Qty: 1 12RF Rx Instructions: As directed (DME) Accu-Chek Guide test strips Strip See Rx Instructions .Route Qty: 100 2RF Rx Instructions: Test 2-3 times daily or As directed ergocalciferol (vitamin D2) 1,250 mcg (50,000 unit) capsule See Rx Instructions .ROUTE .COMPLEX Qty: 7 0RF Dose Instruction: Take 1 capsule by mouth once a week Rx Instructions: Take 1 capsule by mouth once a week cyclobenzaprine 10 mg tablet See Rx Instructions .ROUTE .COMPLEX Qty: 60 0RF Dose Instruction: Take 1 tablet by mouth three times daily as needed for muscle spasm Rx Instructions: Take 1 tablet by mouth three times daily as needed for muscle spasm simvastatin 10 mg tablet See Rx Instructions .ROUTE .COMPLEX Qty: 90 0RF Dose Instruction: Take 1 tablet by mouth once daily Rx Instructions: Take 1 tablet by mouth once daily omeprazole 20 MG capsule,delayed release(DR/EC) 20 mg PO DAILY promethazine 25 mg Tablet 25 mg PO BID PRN (Reason: Nausea) Qty: 10 12RF hydrocodone-acetaminophen 5-325 mg tablet 1 tab PO Q12H 2 Days Qty: 4 0RF Referrals Follow up/Referrals: Jd Pandya APRN [Primary Care Provider] - See instructions Activity Restrictions/Add. Instructions Additional Instructions/Restrictions: You have been evaluated for chest pain, abdominal pain. Please continue taking omeprazole. Follow bland diet. [place] as needed for severe pain. Follow-up with your primary care doctor. Return to the emergency department at once for any new or worsening symptoms, chest pain, difficulty breathing, other concerns. Clinical Impressions Clinical Impression: Abdominal pain, epigastric Instructions Patient Instructions: DI for Epigastric Pain Discharge ED Provider: Berta Corley Adult HPI General Chief complaint: PAIN Stated complaint: pain Time Seen by Provider: 04/02/22 12:22 Mode of Arrival: EMS Source of Information: Patient Limitations: No Limitations History of Present Illness HPI narrative: 61-year-old male presenting to the emergency department with abdominal pain. Pain started about 1 week ago, got worse today. It is located in the midportion of the abdomen, radiates to the back and to the left shoulder. It has been constant since onset. Pain is described as a burning, aching pain. No associated nausea, vomiting, diaphoresis, cough, shortness of breath. He was evaluated in our emergency department a few days ago he was told he had an ulcer. He has never had this problem before. Was given a new medication, [place]. This does not help. Smokes tobacco. Den
[2022-04-02 12:41] LABS: Ethyl Alcohol < 10 mg/dl (0-10)
[2022-04-02 12:51] LABS: Troponin I 0.01 ng/ml (0.00-0.034)
--- NOTE | 2022-04-02 14:20 | CT_ITS ---
PROCEDURE INFORMATION: Exam: CTA Chest With Contrast Exam date and time: 04/02/2022 2:34 PM Age: 61 years old Clinical indication: Pain; Chest pressure; Additional info: Chest pain, to back TECHNIQUE: Imaging protocol: Computed tomographic angiography of the chest with contrast. 3D rendering (Not supervised by radiologist): MIP and/or 3D reconstructed images were created by the technologist. Radiation optimization: All CT scans at this facility use at least one of these dose optimization techniques: automated exposure control; mA and/or kV adjustment per patient size (includes targeted exams where dose is matched to clinical indication); or iterative reconstruction. Contrast material: ISOVUE; Contrast volume: 100 ml; Contrast route: INTRAVENOUS (IV); COMPARISON: CT CHEST WO CON 03/16/2021 7:40 PM FINDINGS: Pulmonary arteries: Normal. No pulmonary emboli. Aorta: Unremarkable. No aortic aneurysm. No aortic dissection. Lungs: New pulmonary nodule in the right upper lobe measures 6 mm (series 5, image 30). Recommend follow-up as warranted. Pleural spaces: Unremarkable. No pneumothorax. No pleural effusion. Heart: Unremarkable. No cardiomegaly. No pericardial effusion. Lymph nodes: Stable coarsely calcified mediastinal and right hilar lymph nodes likely from previous granulomatous exposure. Retroperitoneal space: Nonspecific retroperitoneal stranding, partially visualized. Reported on previous CT abdomen in March. Dedicated CT abdomen pelvis recommended if indicated. Bones/joints: Unremarkable. No acute fracture. Soft tissues: Unremarkable. IMPRESSION: 1. New pulmonary nodule in the right upper lobe measures 6 mm (series 5, image 30). Recommend follow-up as warranted. 2. Nonspecific retroperitoneal stranding, partially visualized. Reported on previous CT abdomen in March. Dedicated CT abdomen pelvis recommended if indicated. FLEISCHNER CRITERIA FOR MANAGEMENT OF PULMONARY NODULES Low Risk Patients: <6mm, no follow-up 6-8mm, 6-12 month follow-up >8mm, CT @ 3, months, PET/CT or biopsy High Risk Patients: <6mm, follow-up 12 months 6-8mm, 6-12 month then 18-24 month follow-up >8mm, same as for low risk References: Nimisha Brown et al. Guidelines for Management of Incidental Pulmonary Nodules Detected on CT Images: From the Fleischner Society 2017. Radiology. 2017;284(1):228-243.
[2022-04-02 15:52] LABS: Troponin I < 0.01 ng/ml (0.00-0.034)
== END 2022-04-02 17:16 | disposition home or self-care (01) ==
PROVIDERS: Emergency Provider Emergency Medicine; PCP Nurse Practitioner Family
DX: R10.13 Epigastric pain (principal); Z79.899 Other long term (current) drug therapy; Z88.0 Allergy status to penicillin; I10 Essential (primary) hypertension; E11.9 Type 2 diabetes mellitus without complications; N17.9 Acute kidney failure, unspecified; Z72.0 Tobacco use; C61 Malignant neoplasm of prostate; J44.9 Chronic obstructive pulmonary disease, unspecified; E78.5 Hyperlipidemia, unspecified
CPT/HCPCS: 36415; 71045; 71275; 80053; 83690; 84484; 85025; 93005; 96374; 99284; Q9967

== ENCOUNTER 2022-05-23 00:34 | Emergency (ER) | payer OTHER, SELFPAY ==
--- NOTE | 2022-05-23 00:14 | ECG_ITS ---
APPROVED REPORT Exam: Resting ECG HR:92 bpm ECG Measurements Heart Rate 92 AXES [place] 156 P 41 QRSd 82 QRS 15 QT 345 T 45 QTc 395 Conclusion SINUS RHYTHM MODERATE VOLTAGE CRITERIA FOR LVH, CONSIDER NORMAL VARIANT [MEETS CRITERIA IN ONE OF: R(aVL), S(V1), R(V5), R(V5/V6)+S(V1)] NONSPECIFIC T-WAVE ABNORMALITY BORDERLINE ECG UNCONFIRMED REPORT Electronically signed by : Jovan Polanco MD 05/25/2022 20:17:23
[2022-05-23 00:34] VITALS: BP 168/92; PULSE 89; RESP 20; TEMP 36.7; O2SAT 98; BMI 30.8
[2022-05-23 00:35] VITALS: BMI 30.8
--- NOTE | 2022-05-23 00:36 | XR_ITS ---
PROCEDURE INFORMATION: Exam: XR Chest Exam date and time: 05/23/2022 12:35 AM Age: 61 years old Clinical indication: Pain; Cough; Left-sided; Additional info: Cough, cp TECHNIQUE: Imaging protocol: Radiologic exam of the chest. Views: 2 views. COMPARISON: CR XR CHEST PORTABLE 04/02/2022 12:51 PM FINDINGS: Lungs: Subtle interstitial haziness could reflect interstitial pneumonia. No consolidation. Pleural spaces: Unremarkable. No pleural effusion. No pneumothorax. Heart/Mediastinum: Unremarkable. No cardiomegaly. Bones/joints: Unremarkable. IMPRESSION: Subtle interstitial haziness could reflect interstitial pneumonia.
[2022-05-23 00:47] LABS: Coronavirus 19, PCR Not Detected (NotDetected); Influenza A, PCR Not Detected (NotDetected); Influenza B, PCR Not Detected (NotDetected)
[2022-05-23 00:48] VITALS: RESP 20; TEMP 36.7; O2SAT 98
[2022-05-23 00:49] LABS: Basophils % 0.8 % (0.1-2.0); Eosinophils % 0.5 % (0.1-12.0); Hematocrit 35.9 % (42.0-52.0); Hemoglobin 11.8 g/dL (14.1-18.0); Lymphocytes # 0.6 K/mm3 (0.7-4.5); Mean Corpuscular HGB Conc 32.9 g/dL (31.8-35.4); Mean Corpuscular Hemoglobin 29.9 pg (27.0-31.2); Mean Corpuscular Volume 90.8 fl (80-94); Mean Platelet Volume 7.5 fl (7.4-10.4); Monocytes # 0.1 K/mm3 (0.1-1.0); Monocytes % 4.7 % (1.7-9.3); Neutrophils # 1.4 K/mm3 (1.8-7.8); Neutrophils % 64.9 % (37.0-80.0); Platelet Count 190 K/mm3 (142-424); Red Blood Count 3.95 M/mm3 (4.60-6.20); Red Cell Distribution Width 13.6 % (11.5-17.5); White Blood Count 2.2 K/mm3 (4.8-10.8)
[2022-05-23 00:50] LABS: Chloride 100 mmol/L (98-107); Potassium 3.8 mmoL/L (3.5-5.1); Sodium 136 mmol/L (136-145)
[2022-05-23 00:53] LABS: Blood Urea Nitrogen 17 mg/dl (9-20); Creatinine Clearance Estimated 116 mL/min (50-200); Estimated Glomerular Filt Rate 75 ml/min (>60); GFR (African American) 91 ML/MIN (>60)
[2022-05-23 00:54] LABS: Anion Gap 14.8 mEq/L (5-15); Calcium 10.3 mg/dl (8.4-10.2); Carbon Dioxide 25 mmol/L (22.0-30.0); Glucose 101 mg/dl (74-100)
[2022-05-23 01:13] LABS: Troponin I < 0.01 ng/ml (0.00-0.034)
[2022-05-23 02:32] VITALS: RESP 20; TEMP 36.7; O2SAT 98
--- NOTE | 2022-05-23 02:38 | HMH.EDCP ---
Discharge Plan Disposition Patient Disposition: Home, Self-Care Prescriptions Prescriptions: New azithromycin [azithromycin] 250 mg tablet 250 mg PO DIRECTED Qty: 6 0RF Rx Instructions: Take two (2) tablets on day #1, then one (1) tablet day #2 thru #5 No Action bisacodyl 5 mg tablet,delayed release (DR/EC) 5 mg PO HS Qty: 10 0RF magnesium citrate Solution 300 ml PO DAILY PRN (Reason: constipation) Qty: 296 0RF pantoprazole 20 mg tablet,delayed release (DR/EC) 20 mg PO DAILY Qty: 30 2RF sennosides [Natural Senna Laxative] 8.6 mg tablet 8.6 mg PO DAILY Qty: 30 1RF lactulose 20 gram/30 mL solution 30 g PO BID PRN (Reason: constipation) Qty: 1200 0RF (DME) FreeStyle Rosana 14 Day [place] Misc See Rx Instructions MISCELLANE .MEDSUPPLY Qty: 1 0RF Rx Instructions: As directed insulin asp prt-insulin aspart [Novolog Mix 70-30FlexPen U-100] 100 unit/mL (70-30) insulin pen 15 unit SQ BID Qty: 15 10RF alcohol swabs [Alcohol Prep Pads] Pads, Medicated 1 pad TOPICAL TID Qty: 100 3RF valsartan-hydrochlorothiazide 160-12.5 mg tablet 1 tab PO DAILY Qty: 30 5RF amlodipine [Norvasc] 5 mg tablet 5 mg PO DAILY Qty: 30 5RF metoprolol succinate 50 mg tablet extended release 24 hr 50 mg PO DAILY Qty: 90 3RF oxybutynin chloride 5 mg tablet extended release 24hr 5 mg PO DAILY Qty: 30 2RF (DME) pen needle, diabetic [Droplet Pen Needle] 32 gauge x 3/16 needle See Rx Instructions .ROUTE .MEDSUPPLY Qty: 50 0RF Rx Instructions: As directed Trulicity 0.75 mg/0.5 mL pen injector 0.75 mg SQ WEEKLY Qty: 2 2RF (DME) FreeStyle Rosana 14 Day Sensor Kit See Rx Instructions MISCELLANE .MEDSUPPLY Qty: 1 12RF Rx Instructions: As directed (DME) Accu-Chek Guide test strips Strip See Rx Instructions .Route Qty: 100 2RF Rx Instructions: Test 2-3 times daily or As directed ergocalciferol (vitamin D2) 1,250 mcg (50,000 unit) capsule See Rx Instructions .ROUTE .COMPLEX Qty: 7 0RF Dose Instruction: Take 1 capsule by mouth once a week Rx Instructions: Take 1 capsule by mouth once a week cyclobenzaprine 10 mg tablet See Rx Instructions .ROUTE .COMPLEX Qty: 60 0RF Dose Instruction: Take 1 tablet by mouth three times daily as needed for muscle spasm Rx Instructions: Take 1 tablet by mouth three times daily as needed for muscle spasm simvastatin 10 mg tablet See Rx Instructions .ROUTE .COMPLEX Qty: 90 0RF Dose Instruction: Take 1 tablet by mouth once daily Rx Instructions: Take 1 tablet by mouth once daily omeprazole 20 MG capsule,delayed release(DR/EC) 20 mg PO DAILY promethazine 25 mg Tablet 25 mg PO BID PRN (Reason: Nausea) Qty: 10 12RF Referrals Follow up/Referrals: Jd Pandya APRN [Primary Care Provider] - See instructions Clinical Impressions Clinical Impression: Atypical chest pain Instructions Patient Instructions: DI for Atypical Chest Pain Discharge ED Provider: Gibson Delgadillo Chest Pain HPI General Chief Complaint: Chest Pain Stated Complaint: cp Time Seen by Provider: 05/23/22 02:38 Mode of Arrival: EMS Source of Information: Patient, Significant Other, EMS and Medical Record Limitations: No Limitations Description of Symptoms (Recalled from ER Triage Doc. by RN): Pt c/o left chest pain that radiates to L upper back and up left side of neck. Pt also c/o productive cough and states the cough and pain has been present since Sun (05/19). He reports the pain worsened when he turned on his left side. Pain is also reproducible when coughing or moving left side. Denies fever, chills, or body aches. History of Present Illness HPI narrative: new onset of lt ant chest pain with to back - but increased with cough and mov- has had sx since sunday MD complaint: chest pain indicative of cardiac Onset (ago): hour(s) Duration: intermittent Activit
[2022-05-23 03:01] LABS: Microscopic, Urine URINE MICROSCOPIC (MICROSCOPIC)
[2022-05-23 03:05] LABS: Appearance,Urine CLEAR (Clear); Bilirubin,Urine Negative (Negative); Blood, Urine TRACE-I (Negative); Color,Urine YELLOW (Yellow); Glucose,Urine (UA) Negative (Negative); Ketones,Urine Negative (Negative); Leukocyte Esterase,Urine Negative (Negative); Nitrate,Urine Negative (Negative); PH,Urine 6.5 (5.0-8.5); Protein,Urine Negative (Negative)
[2022-05-23 03:16] LABS: Amphetamine/Metha Screen,Urine Negative ng/ml (<1000); Benzodiazepines Screen,Urine Negative ng/ml (<200)
[2022-05-23 03:17] LABS: Barbiturates Screen,Urine Negative ng/ml (<200)
[2022-05-23 03:18] LABS: Cannabinoid Screen,Urine Positive ng/ml (<50); Cocaine Screen,Urine Negative ng/ml (<300)
[2022-05-23 03:18] LABS: NT Pro Brain Natriuretic Pep. 133 pg/mL (0-125)
[2022-05-23 03:19] LABS: Methadone Screen,Urine Negative ng/ml (<300)
[2022-05-23 03:20] LABS: Opiate Screen,Urine Negative ng/ml (<300); Phencyclidine Screen,Urine Negative ng/ml (<25)
[2022-05-23 03:28] LABS: Bacteria,Urine Trace /lpf; Squamous Epithelial Cell,Urine Occasional #/hpf (0-5)
[2022-05-23 03:54] LABS: Troponin I < 0.01 ng/ml (0.00-0.034)
[2022-05-23 04:19] VITALS: BP 117/98; PULSE 80; RESP 20; TEMP 36.7; O2SAT 97
== END 2022-05-23 04:21 | disposition home or self-care (01) ==
PROVIDERS: Emergency Provider Emergency Medicine; PCP Nurse Practitioner Family
DX: R07.9 Chest pain, unspecified (principal); R94.31 Abnormal electrocardiogram [ECG] [EKG]; Z20.822 Contact with and (suspected) exposure to COVID-19; K59.00 Constipation, unspecified; M62.838 Other muscle spasm; F17.210 Nicotine dependence, cigarettes, uncomplicated; Z79.4 Long term (current) use of insulin; Z79.899 Other long term (current) drug therapy; Z82.49 Family history of ischemic heart disease and other diseases of the circulatory system; Z83.3 Family history of diabetes mellitus; Z81.2 Family history of tobacco abuse and dependence
CPT/HCPCS: 71046; 80048; 80305; 81001; 83880; 84484; 85025; 93005; 96374; 96375; 99285; C9803; U0003; U0005

== ENCOUNTER 2022-05-28 10:26 | Emergency (ER) | payer OTHER, SELFPAY ==
[2022-05-28 10:27] VITALS: BP 145/96; PULSE 100; RESP 18; TEMP 37.3; O2SAT 99; BMI 27.8
[2022-05-28 10:30] VITALS: BP 154/97; PULSE 100; RESP 18; O2SAT 99
--- NOTE | 2022-05-28 10:47 | XR_ITS ---
PROCEDURE INFORMATION: Exam: XR Left Hip Exam date and time: 05/28/2022 10:55 AM Age: 61 years old Clinical indication: Hip pain; Left hip TECHNIQUE: Imaging protocol: Radiologic exam of the Left hip. Views: 2 or 3 views hip with pelvis when performed. COMPARISON: CT ABDOMEN PELVIS WO CON 03/29/2022 11:51 AM FINDINGS: Bones/joints: Right hip prosthesis. Severe osteoarthritic changes left hip. No acute fracture or dislocation. Soft tissues: Unremarkable. IMPRESSION: Severe osteoarthritic changes left hip. No acute fracture or dislocation.
--- NOTE | 2022-05-28 10:49 | HMH.EDGENADL ---
Discharge Plan Disposition Chief Complaint: Back Pain/Injury Prescriptions Prescriptions: No Action bisacodyl 5 mg tablet,delayed release (DR/EC) 5 mg PO HS Qty: 10 0RF magnesium citrate Solution 300 ml PO DAILY PRN (Reason: constipation) Qty: 296 0RF pantoprazole 20 mg tablet,delayed release (DR/EC) 20 mg PO DAILY Qty: 30 2RF sennosides [Natural Senna Laxative] 8.6 mg tablet 8.6 mg PO DAILY Qty: 30 1RF lactulose 20 gram/30 mL solution 30 g PO BID PRN (Reason: constipation) Qty: 1200 0RF (DME) FreeStyle Rosana 14 Day [place] Misc See Rx Instructions MISCELLANE .MEDSUPPLY Qty: 1 0RF Rx Instructions: As directed insulin asp prt-insulin aspart [Novolog Mix 70-30FlexPen U-100] 100 unit/mL (70-30) insulin pen 15 unit SQ BID Qty: 15 10RF alcohol swabs [Alcohol Prep Pads] Pads, Medicated 1 pad TOPICAL TID Qty: 100 3RF valsartan-hydrochlorothiazide 160-12.5 mg tablet 1 tab PO DAILY Qty: 30 5RF amlodipine [Norvasc] 5 mg tablet 5 mg PO DAILY Qty: 30 5RF metoprolol succinate 50 mg tablet extended release 24 hr 50 mg PO DAILY Qty: 90 3RF oxybutynin chloride 5 mg tablet extended release 24hr 5 mg PO DAILY Qty: 30 2RF (DME) pen needle, diabetic [Droplet Pen Needle] 32 gauge x 3/16 needle See Rx Instructions .ROUTE .MEDSUPPLY Qty: 50 0RF Rx Instructions: As directed Trulicity 0.75 mg/0.5 mL pen injector 0.75 mg SQ WEEKLY Qty: 2 2RF (DME) FreeStyle [place] 14 Day Sensor Kit See Rx Instructions MISCELLANE .MEDSUPPLY Qty: 1 12RF Rx Instructions: As directed (DME) Accu-Chek Guide test strips Strip See Rx Instructions .Route Qty: 100 2RF Rx Instructions: Test 2-3 times daily or As directed ergocalciferol (vitamin D2) 1,250 mcg (50,000 unit) capsule See Rx Instructions .ROUTE .COMPLEX Qty: 7 0RF Dose Instruction: Take 1 capsule by mouth once a week Rx Instructions: Take 1 capsule by mouth once a week cyclobenzaprine 10 mg tablet See Rx Instructions .ROUTE .COMPLEX Qty: 60 0RF Dose Instruction: Take 1 tablet by mouth three times daily as needed for muscle spasm Rx Instructions: Take 1 tablet by mouth three times daily as needed for muscle spasm simvastatin 10 mg tablet See Rx Instructions .ROUTE .COMPLEX Qty: 90 0RF Dose Instruction: Take 1 tablet by mouth once daily Rx Instructions: Take 1 tablet by mouth once daily omeprazole 20 MG capsule,delayed release(DR/EC) 20 mg PO DAILY azithromycin [azithromycin] 250 mg tablet 250 mg PO DIRECTED Qty: 6 0RF Rx Instructions: Take two (2) tablets on day #1, then one (1) tablet day #2 thru #5 promethazine 25 mg Tablet 25 mg PO BID PRN (Reason: Nausea) Qty: 10 12RF Referrals Follow up/Referrals: Jd Pandya APRN [Primary Care Provider] - See instructions Instructions Patient Instructions: DI for Low Back Pain Discharge ED Provider: Hardik Navarrete General Adult HPI General Chief complaint: Back Pain/Injury Stated complaint: back pain Time Seen by Provider: 05/28/22 10:41 Mode of Arrival: EMS Source of Information: Patient Limitations: No Limitations Description of Symptoms (Recalled from ER Triage Doc. by RN): Pt c/o L sided lower back pain and in buttocks area. Pt reports pain began lastnight after coughing. Pt reports he feels like he strained something. Pt denies radiation of pain. History of Present Illness HPI narrative: Patient presents with pain to the left lower back and upper buttock region that began during the night following a coughing episode. He was recently seen here for cough and prescribed antibiotics and steroids and states he had an episode of chest pain that radiated into this area following a coughing spell as outlined. He describes the pain as severe and worse with movement. He denies chest pain or shortness of air at this time. Related Data Home Medications Medica
--- NOTE | 2022-05-28 11:12 | PC.NURSE ---
Pt returned from rad
[2022-05-28 11:59] VITALS: BP 152/96; PULSE 100; RESP 20; TEMP 36.7; O2SAT 98
== END 2022-05-28 12:25 | disposition home or self-care (01) ==
PROVIDERS: Emergency Provider Emergency Medicine; PCP Nurse Practitioner Family
DX: M54.50 Low back pain, unspecified (principal); R07.9 Chest pain, unspecified; R94.31 Abnormal electrocardiogram [ECG] [EKG]; R11.0 Nausea; R05.9 Cough, unspecified; K59.00 Constipation, unspecified; F17.210 Nicotine dependence, cigarettes, uncomplicated; Z79.4 Long term (current) use of insulin; Z79.52 Long term (current) use of systemic steroids; Z79.899 Other long term (current) drug therapy; Z88.0 Allergy status to penicillin
CPT/HCPCS: 73502; 96374; 99283; 99284

== ENCOUNTER 2022-05-30 01:40 | Emergency (ER) | payer OTHER, SELFPAY ==
[2022-05-30 01:41] VITALS: BP 154/98; PULSE 73; RESP 18; TEMP 36.4; O2SAT 97; BMI 33.5
--- NOTE | 2022-05-30 02:42 | HMH.EDGENADL ---
Discharge Plan Disposition Patient Disposition: Home, Self-Care Chief Complaint: PAIN Prescriptions Prescriptions: No Action bisacodyl 5 mg tablet,delayed release (DR/EC) 5 mg PO HS Qty: 10 0RF magnesium citrate Solution 300 ml PO DAILY PRN (Reason: constipation) Qty: 296 0RF pantoprazole 20 mg tablet,delayed release (DR/EC) 20 mg PO DAILY Qty: 30 2RF sennosides [Natural Senna Laxative] 8.6 mg tablet 8.6 mg PO DAILY Qty: 30 1RF lactulose 20 gram/30 mL solution 30 g PO BID PRN (Reason: constipation) Qty: 1200 0RF (DME) FreeStyle Rosana 14 Day [place] Misc See Rx Instructions MISCELLANE .MEDSUPPLY Qty: 1 0RF Rx Instructions: As directed insulin asp prt-insulin aspart [Novolog Mix 70-30FlexPen U-100] 100 unit/mL (70-30) insulin pen 15 unit SQ BID Qty: 15 10RF alcohol swabs [Alcohol Prep Pads] Pads, Medicated 1 pad TOPICAL TID Qty: 100 3RF valsartan-hydrochlorothiazide 160-12.5 mg tablet 1 tab PO DAILY Qty: 30 5RF amlodipine [Norvasc] 5 mg tablet 5 mg PO DAILY Qty: 30 5RF metoprolol succinate 50 mg tablet extended release 24 hr 50 mg PO DAILY Qty: 90 3RF oxybutynin chloride 5 mg tablet extended release 24hr 5 mg PO DAILY Qty: 30 2RF (DME) pen needle, diabetic [Droplet Pen Needle] 32 gauge x 3/16 needle See Rx Instructions .ROUTE .MEDSUPPLY Qty: 50 0RF Rx Instructions: As directed Trulicity 0.75 mg/0.5 mL pen injector 0.75 mg SQ WEEKLY Qty: 2 2RF (DME) FreeStyle [place] 14 Day Sensor Kit See Rx Instructions MISCELLANE .MEDSUPPLY Qty: 1 12RF Rx Instructions: As directed (DME) Accu-Chek Guide test strips Strip See Rx Instructions .Route Qty: 100 2RF Rx Instructions: Test 2-3 times daily or As directed cyclobenzaprine 10 mg tablet See Rx Instructions .ROUTE .COMPLEX Qty: 60 0RF Dose Instruction: Take 1 tablet by mouth three times daily as needed for muscle spasm Rx Instructions: Take 1 tablet by mouth three times daily as needed for muscle spasm simvastatin 10 mg tablet See Rx Instructions .ROUTE .COMPLEX Qty: 90 0RF Dose Instruction: Take 1 tablet by mouth once daily Rx Instructions: Take 1 tablet by mouth once daily ergocalciferol (vitamin D2) 1,250 mcg (50,000 unit) capsule See Rx Instructions .ROUTE .COMPLEX Qty: 7 0RF Dose Instruction: Take 1 capsule by mouth once a week Rx Instructions: Take 1 capsule by mouth once a week omeprazole 20 MG capsule,delayed release(DR/EC) 20 mg PO DAILY azithromycin [azithromycin] 250 mg tablet 250 mg PO DIRECTED Qty: 6 0RF Rx Instructions: Take two (2) tablets on day #1, then one (1) tablet day #2 thru #5 hydrocodone-acetaminophen 5-325 mg tablet 1 tab PO Q6H PRN (Reason: pain) Qty: 10 0RF promethazine 25 mg Tablet 25 mg PO BID PRN (Reason: Nausea) Qty: 10 12RF Referrals Follow up/Referrals: Jd Pandya APRN [Primary Care Provider] - See instructions Andrew Sullivan JR, MD [Physician] - See instructions Thompson Rico DO [Staff Physician] - See instructions Clinical Impressions Clinical Impression: Acute hip pain Instructions Patient Instructions: DI for Acute Pain -- Adult Discharge ED Provider: Gibson Delgadillo General Adult HPI General Chief complaint: PAIN Stated complaint: low back pain; left arm pain Time Seen by Provider: 05/30/22 02:43 Mode of Arrival: Wheelchair Source of Information: Patient, Significant Other and Medical Record Limitations: No Limitations Description of Symptoms (Recalled from ER Triage Doc. by RN): pt c/o lower lt back pain and was seen in er on sunday. today pt states that lt arm began hurting. History of Present Illness HPI narrative: pt with increased pain to lt hip with no fever or rash and no trauma - was seen in the ed a few days ago Onset (ago): day(s) Location: lower extremity Severity: severe Quality: sharp Consistency
[2022-05-30 02:58] VITALS: BP 152/89; PULSE 71; RESP 18; TEMP 36.6; O2SAT 99
== END 2022-05-30 03:03 | disposition home or self-care (01) ==
PROVIDERS: Emergency Provider Emergency Medicine; PCP Nurse Practitioner Family
DX: M25.559 Pain in unspecified hip (principal); M79.602 Pain in left arm; M54.50 Low back pain, unspecified; R94.31 Abnormal electrocardiogram [ECG] [EKG]; R11.0 Nausea; K59.00 Constipation, unspecified; M62.838 Other muscle spasm; F17.210 Nicotine dependence, cigarettes, uncomplicated; Z79.4 Long term (current) use of insulin; Z79.51 Long term (current) use of inhaled steroids; Z79.899 Other long term (current) drug therapy; Z88.0 Allergy status to penicillin
CPT/HCPCS: 96372; 99284

== ENCOUNTER 2022-06-07 08:49 | Emergency (ER) | payer OTHER, SELFPAY ==
[2022-06-07 09:03] VITALS: BP 194/90; PULSE 105; RESP 20; TEMP 36.8; O2SAT 99; BMI 29.8
[2022-06-07 09:06] VITALS: BMI 29.8
--- NOTE | 2022-06-07 09:07 | XR_ITS ---
FINAL REPORT CLINICAL HISTORY: soa COMPARISON: 05/23/2022 FINDINGS: TWO-VIEW CHEST The heart size is normal. The mediastinum is normal. There are mild bibasilar opacities, may represent atelectasis or pneumonia. There is no pneumothorax. IMPRESSION: Mild bibasilar atelectasis versus pneumonia. Reviewed, Interpreted and Dictated by Drew Garcia III, MD Transcribed by Deanne Pillai Authenticated and [facility]
[2022-06-07 09:10] VITALS: BP 194/90; PULSE 99; O2SAT 100
[2022-06-07 09:15] LABS: Coronavirus 19, PCR Not Detected (NotDetected); Influenza A, PCR Not Detected (NotDetected); Influenza B, PCR Not Detected (NotDetected)
--- NOTE | 2022-06-07 09:16 | HMH.EDGENADL ---
Discharge Plan Disposition Patient Disposition: Home, Self-Care Condition: Good Prescriptions Prescriptions: New doxycycline hyclate 100 mg tablet 100 mg PO DAILY Qty: 10 0RF prednisone 50 mg tablet 50 mg PO DAILY 7 Days Qty: 7 0RF benzonatate 100 mg capsule 100 mg PO BID Qty: 30 0RF No Action bisacodyl 5 mg tablet,delayed release (DR/EC) 5 mg PO HS Qty: 10 0RF magnesium citrate Solution 300 ml PO DAILY PRN (Reason: constipation) Qty: 296 0RF pantoprazole 20 mg tablet,delayed release (DR/EC) 20 mg PO DAILY Qty: 30 2RF sennosides [Natural Senna Laxative] 8.6 mg tablet 8.6 mg PO DAILY Qty: 30 1RF lactulose 20 gram/30 mL solution 30 g PO BID PRN (Reason: constipation) Qty: 1200 0RF (DME) FreeStyle Rosana 14 Day [place] Misc See Rx Instructions MISCELLANE .MEDSUPPLY Qty: 1 0RF Rx Instructions: As directed insulin asp prt-insulin aspart [Novolog Mix 70-30FlexPen U-100] 100 unit/mL (70-30) insulin pen 15 unit SQ BID Qty: 15 10RF alcohol swabs [Alcohol Prep Pads] Pads, Medicated 1 pad TOPICAL TID Qty: 100 3RF valsartan-hydrochlorothiazide 160-12.5 mg tablet 1 tab PO DAILY Qty: 30 5RF amlodipine [Norvasc] 5 mg tablet 5 mg PO DAILY Qty: 30 5RF metoprolol succinate 50 mg tablet extended release 24 hr 50 mg PO DAILY Qty: 90 3RF oxybutynin chloride 5 mg tablet extended release 24hr 5 mg PO DAILY Qty: 30 2RF (DME) pen needle, diabetic [Droplet Pen Needle] 32 gauge x 3/16 needle See Rx Instructions .ROUTE .MEDSUPPLY Qty: 50 0RF Rx Instructions: As directed Trulicity 0.75 mg/0.5 mL pen injector 0.75 mg SQ WEEKLY Qty: 2 2RF (DME) FreeStyle Rosana 14 Day Sensor Kit See Rx Instructions MISCELLANE .MEDSUPPLY Qty: 1 12RF Rx Instructions: As directed (DME) Accu-Chek Guide test strips Strip See Rx Instructions .Route Qty: 100 2RF Rx Instructions: Test 2-3 times daily or As directed cyclobenzaprine 10 mg tablet See Rx Instructions .ROUTE .COMPLEX Qty: 60 0RF Dose Instruction: Take 1 tablet by mouth three times daily as needed for muscle spasm Rx Instructions: Take 1 tablet by mouth three times daily as needed for muscle spasm simvastatin 10 mg tablet See Rx Instructions .ROUTE .COMPLEX Qty: 90 0RF Dose Instruction: Take 1 tablet by mouth once daily Rx Instructions: Take 1 tablet by mouth once daily ergocalciferol (vitamin D2) 1,250 mcg (50,000 unit) capsule See Rx Instructions .ROUTE .COMPLEX Qty: 7 0RF Dose Instruction: Take 1 capsule by mouth once a week Rx Instructions: Take 1 capsule by mouth once a week oxycodone-acetaminophen [Percocet] 7.5-325 mg tablet 1 tab PO TID PRN (Reason: pain) Qty: 30 0RF omeprazole 20 MG capsule,delayed release(DR/EC) 20 mg PO DAILY azithromycin [azithromycin] 250 mg tablet 250 mg PO DIRECTED Qty: 6 0RF Rx Instructions: Take two (2) tablets on day #1, then one (1) tablet day #2 thru #5 hydrocodone-acetaminophen 5-325 mg tablet 1 tab PO Q6H PRN (Reason: pain) Qty: 10 0RF promethazine 25 mg Tablet 25 mg PO BID PRN (Reason: Nausea) Qty: 10 12RF Referrals Follow up/Referrals: Gibson Delgadillo MD [Primary Care Provider] - See instructions Activity Restrictions/Add. Instructions Additional Instructions/Restrictions: Please follow-up with your primary care physician within the next 48 hours. Please use the antibiotic as prescribed. Please also utilize the steroids as prescribed. Please drink plenty of water and eat 3 balanced meals. Please take your albuterol inhaler 4 puffs every 6 hours for the next 2 days and then use as needed. Return if breathing worsens, chest pain or any other concerns. Clinical Impressions Clinical Impression: Pneumonia Instructions Patient Instructions: DI for Pneumonia -- Adult Print Language Print Language: [place] Discharge ED Pro
[2022-06-07 09:36] LABS: Basophils % 0.7 % (0.1-2.0); Eosinophils % 0.5 % (0.1-12.0); Hematocrit 32.6 % (42.0-52.0); Hemoglobin 10.8 g/dL (14.1-18.0); Lymphocytes # 0.6 K/mm3 (0.7-4.5); Lymphocytes % 18.1 % (10-50); Mean Corpuscular HGB Conc 33.1 g/dL (31.8-35.4); Mean Corpuscular Hemoglobin 29.7 pg (27.0-31.2); Mean Corpuscular Volume 89.9 fl (80-94); Mean Platelet Volume 7.6 fl (7.4-10.4); Monocytes # 0.1 K/mm3 (0.1-1.0); Monocytes % 4.1 % (1.7-9.3); Neutrophils # 2.3 K/mm3 (1.8-7.8); Neutrophils % 76.6 % (37.0-80.0); Platelet Count 253 K/mm3 (142-424); Red Blood Count 3.63 M/mm3 (4.60-6.20); Red Cell Distribution Width 13.6 % (11.5-17.5); White Blood Count 3.1 K/mm3 (4.8-10.8)
[2022-06-07 09:42] LABS: Chloride 101 mmol/L (98-107); Sodium 135 mmol/L (136-145)
[2022-06-07 09:45] LABS: Blood Urea Nitrogen 12 mg/dl (9-20); Calcium 9.9 mg/dl (8.4-10.2); Carbon Dioxide 26 mmol/L (22.0-30.0); Creatinine Clearance Estimated 107 mL/min (50-200); Estimated Glomerular Filt Rate 114 ml/min (>60); GFR (African American) 138 ML/MIN (>60); Glucose 99 mg/dl (74-100)
[2022-06-07 10:01] LABS: Troponin I < 0.01 ng/ml (0.00-0.034)
--- NOTE | 2022-06-07 10:56 | PC.NURSE ---
CALLED AGAIN CHECKING ON XRAY REPORT
[2022-06-07 11:00] VITALS: PULSE 91; O2SAT 100
[2022-06-07 11:24] VITALS: BP 131/97
--- NOTE | 2022-06-07 11:35 | PC.NURSE ---
CALLED RADIOLOGY AGAIN ABOUT XRAY READING
--- NOTE | 2022-06-07 11:36 | PC.NURSE ---
pt given urinal to urinate
[2022-06-07 12:22] VITALS: BP 114/93; PULSE 96; RESP 16; TEMP 36.8; O2SAT 96
== END 2022-06-07 12:23 | disposition home or self-care (01) ==
PROVIDERS: Emergency Provider Student in an Organized Health Care Education/Training Program; PCP Emergency Medicine
DX: J18.9 Pneumonia, unspecified organism (principal); Z79.899 Other long term (current) drug therapy; K21.9 Gastro-esophageal reflux disease without esophagitis; Z88.0 Allergy status to penicillin; Z72.0 Tobacco use; J44.9 Chronic obstructive pulmonary disease, unspecified; E11.9 Type 2 diabetes mellitus without complications; C79.9 Secondary malignant neoplasm of unspecified site; E78.5 Hyperlipidemia, unspecified; C61 Malignant neoplasm of prostate; I10 Essential (primary) hypertension
CPT/HCPCS: 71046; 80048; 84484; 85025; 99283; C9803; U0003; U0005

== ENCOUNTER 2022-06-18 14:48 | Emergency (ER) | payer OTHER, SELFPAY ==
[2022-06-18] VITALS (7 sets, daily range): BP systolic 126–164; BP diastolic 77–95; PULSE 74–99; RESP 18–23; TEMP 36.6; O2SAT 95–99; BMI 32.1
--- NOTE | 2022-06-18 14:38 | ECG_ITS ---
APPROVED REPORT Exam: Resting ECG HR:99 bpm ECG Measurements Heart Rate 99 AXES SC 147 P 133 QRSd 89 QRS -19 QT 330 T 60 QTc 386 Conclusion SINUS RHYTHM Left atrial abnormality NONSPECIFIC T-WAVE ABNORMALITY BORDERLINE ECG UNCONFIRMED REPORT Electronically signed by : Jovan Polanco MD 06/19/2022 07:17:58
--- NOTE | 2022-06-18 15:02 | XR_ITS ---
PROCEDURE INFORMATION: Exam: XR Chest Exam date and time: 06/18/2022 3:52 PM Age: 62 years old Clinical indication: Pain; Left-sided; Additional info: Chest pain TECHNIQUE: Imaging protocol: Radiologic exam of the chest. Views: 1 view. COMPARISON: CR XR CHEST 2V 06/07/2022 9:19 AM FINDINGS: Lungs: Lung volumes are low. The pulmonary nodules seen on the accompanying chest CTA are in apparent on chest x-ray. Pleural spaces: No pleural effusion or pneumothorax. Heart/Mediastinum: No significant cardiac enlargement. Bones/joints: The lytic destruction of the left scapula and right 5th rib seen on the CT are inapparent on the chest x-ray. IMPRESSION: No acute findings on chest x-ray- see chest CTA report.
--- NOTE | 2022-06-18 15:07 | HMH.EDGENADL ---
Discharge Plan Disposition Patient Disposition: Home, Self-Care Condition: Fair Prescriptions Prescriptions: New oxycodone-acetaminophen [Percocet] 5-325 mg tablet 1 tab PO Q6H PRN (Reason: pain) Qty: 20 0RF No Action bisacodyl 5 mg tablet,delayed release (DR/EC) 5 mg PO HS Qty: 10 0RF magnesium citrate Solution 300 ml PO DAILY PRN (Reason: constipation) Qty: 296 0RF pantoprazole 20 mg tablet,delayed release (DR/EC) 20 mg PO DAILY Qty: 30 2RF sennosides [Natural Senna Laxative] 8.6 mg tablet 8.6 mg PO DAILY Qty: 30 1RF lactulose 20 gram/30 mL solution 30 g PO BID PRN (Reason: constipation) Qty: 1200 0RF valsartan 80 mg tablet 80 mg PO DAILY Label Comments: TAKE 1 TABLET BY MOUTH ONCE DAILY amlodipine [Norvasc] 5 mg tablet 5 mg PO DAILY Qty: 30 5RF oxycodone-acetaminophen [Percocet] 7.5-325 mg tablet 1 tab PO TID PRN (Reason: pain) Qty: 10 0RF (DME) FreeStyle Rosana 14 Day [place] Misc See Rx Instructions MISCELLANE .MEDSUPPLY Qty: 1 0RF Rx Instructions: As directed insulin asp prt-insulin aspart [Novolog Mix 70-30FlexPen U-100] 100 unit/mL (70-30) insulin pen 15 unit SQ BID Qty: 15 10RF alcohol swabs [Alcohol Prep Pads] Pads, Medicated 1 pad TOPICAL TID Qty: 100 3RF metoprolol succinate 50 mg tablet extended release 24 hr 50 mg PO DAILY Qty: 90 3RF oxybutynin chloride 5 mg tablet extended release 24hr 5 mg PO DAILY Qty: 30 2RF (DME) pen needle, diabetic [Droplet Pen Needle] 32 gauge x 3/16 needle See Rx Instructions .ROUTE .MEDSUPPLY Qty: 50 0RF Rx Instructions: As directed Trulicity 0.75 mg/0.5 mL pen injector 0.75 mg SQ WEEKLY Qty: 2 2RF (DME) FreeStyle Rosana 14 Day Sensor Kit See Rx Instructions MISCELLANE .MEDSUPPLY Qty: 1 12RF Rx Instructions: As directed (DME) Accu-Chek Guide test strips Strip See Rx Instructions .Route Qty: 100 2RF Rx Instructions: Test 2-3 times daily or As directed cyclobenzaprine 10 mg tablet See Rx Instructions .ROUTE .COMPLEX Qty: 60 0RF Dose Instruction: Take 1 tablet by mouth three times daily as needed for muscle spasm Rx Instructions: Take 1 tablet by mouth three times daily as needed for muscle spasm simvastatin 10 mg tablet See Rx Instructions .ROUTE .COMPLEX Qty: 90 0RF Dose Instruction: Take 1 tablet by mouth once daily Rx Instructions: Take 1 tablet by mouth once daily ergocalciferol (vitamin D2) 1,250 mcg (50,000 unit) capsule See Rx Instructions .ROUTE .COMPLEX Qty: 7 0RF Dose Instruction: Take 1 capsule by mouth once a week Rx Instructions: Take 1 capsule by mouth once a week omeprazole 20 MG capsule,delayed release(DR/EC) 20 mg PO DAILY azithromycin [azithromycin] 250 mg tablet 250 mg PO DIRECTED Qty: 6 0RF Rx Instructions: Take two (2) tablets on day #1, then one (1) tablet day #2 thru #5 hydrocodone-acetaminophen 5-325 mg tablet 1 tab PO Q6H PRN (Reason: pain) Qty: 10 0RF doxycycline hyclate 100 mg tablet 100 mg PO DAILY Qty: 10 0RF prednisone 50 mg tablet 50 mg PO DAILY 7 Days Qty: 7 0RF benzonatate 100 mg capsule 100 mg PO BID Qty: 30 0RF promethazine 25 mg Tablet 25 mg PO BID PRN (Reason: Nausea) Qty: 10 12RF Referrals Follow up/Referrals: Provider,Referral, MD [Primary Care Provider] - See instructions Activity Restrictions/Add. Instructions Additional Instructions/Restrictions: Percocet as needed for pain. Call the [facility] tomorrow to advise them that cancer has been found spreading to bone, lungs, lymph nodes and arrange follow-up as soon as possible. Take your CT scan disc with you to your appointment. Additional instructions for CONTROLLED SUBSTANCES: You have been prescribed a medication that is a controlled substance. Controlled substances include pain medications known as opiates and sedative nerve
[2022-06-18 15:16] LABS: Basophils % 0.4 % (0.1-2.0); Eosinophils % 0.9 % (0.1-12.0); Hematocrit 31.1 % (42.0-52.0); Hemoglobin 10.3 g/dL (14.1-18.0); Lymphocytes # 0.6 K/mm3 (0.7-4.5); Lymphocytes % 17.6 % (10-50); Mean Corpuscular Hemoglobin 29.3 pg (27.0-31.2); Mean Corpuscular Volume 88.7 fl (80-94); Mean Platelet Volume 8.6 fl (7.4-10.4); Monocytes # 0.1 K/mm3 (0.1-1.0); Monocytes % 4.1 % (1.7-9.3); Neutrophils # 2.6 K/mm3 (1.8-7.8); Neutrophils % 77.1 % (37.0-80.0); Platelet Count 338 K/mm3 (142-424); Red Blood Count 3.51 M/mm3 (4.60-6.20); Red Cell Distribution Width 14.1 % (11.5-17.5); White Blood Count 3.4 K/mm3 (4.8-10.8)
[2022-06-18 15:17] LABS: Chloride 100 mmol/L (98-107); Sodium 135 mmol/L (136-145)
--- NOTE | 2022-06-18 15:17 | PC.NURSE ---
pt sitting up in bed, family in room nothing needed at this time
[2022-06-18 15:20] LABS: Blood Urea Nitrogen 12 mg/dl (9-20); Carbon Dioxide 28 mmol/L (22.0-30.0); Creatinine Clearance Estimated 110 mL/min (50-200); Estimated Glomerular Filt Rate 97 ml/min (>60); GFR (African American) 118 ML/MIN (>60)
[2022-06-18 15:21] LABS: Calcium 9.7 mg/dl (8.4-10.2); Glucose 119 mg/dl (74-100)
--- NOTE | 2022-06-18 15:35 | CT_ITS ---
PROCEDURE INFORMATION: Exam: CTA Chest With Contrast Exam date and time: 06/18/2022 3:55 PM Age: 62 years old Clinical indication: Mass, lump, or swelling in the chest and shortness of breath; Additional info: SOA. ? Mass L posterior upper chest TECHNIQUE: Imaging protocol: Computed tomographic angiography of the chest with contrast. 3D rendering (Not supervised by radiologist): MIP and/or 3D reconstructed images were created by the technologist. Radiation optimization: All CT scans at this facility use at least one of these dose optimization techniques: automated exposure control; mA and/or kV adjustment per patient size (includes targeted exams where dose is matched to clinical indication); or iterative reconstruction. Contrast material: ISOVUE; Contrast volume: 70 ml; Contrast route: INTRAVENOUS (IV); COMPARISON: CT ANGIO CHEST 04/02/2022 2:34 PM FINDINGS: Pulmonary arteries: There is no evidence of filling defects within the pulmonary arterial circulation to suggest pulmonary embolism. Aorta: There is borderline dilatation of the ascending limb of the thoracic aorta. Atherosclerosis. No dissection. Lungs: There is pleuroparenchymal scarring and sub pleural cysts at the right lung apex. There are multiple pulmonary nodules including a 9 mm nodule series 9, image 69 which measures 5.4 mm at time of prior imaging with enlargement of multiple additional nodules as well. No focal lung consolidation. Pleural spaces: No pleural effusion or pneumothorax. Heart: No cardiomegaly or pericardial effusion. Lymph nodes: There is an AP window lymph node measuring 1.7 cm without further significant mediastinal or hilar lymphadenopathy although there appear to be enlarged lymph nodes in the precordial space at the base of the heart anteriorly measuring up to 2 cm series 9, image 99; this appears smaller than on the 04/02/2022 CT at which time it measured 2.5 cm. Liver: Hepatomegaly with AP dimension of right lobe of 21 cm- only partially included on the CT. Spleen: Splenomegaly with splenic AP dimension of 18 cm- only partially included on the CT. Bones/joints: There is a sclerotic lesion in the right 1st rib, there is partial lysis of the right 5th rib laterally-possible pathologic fracture. There are multiple lytic bone lesions with a pathologic fracture inferior margin of the left scapula. There appears to be partial lysis of the right scapula as well. No acute compression fracture in the thoracic spine. Soft tissues: Unremarkable. IMPRESSION: 1. No evidence of pulmonary emboli. 2. Enlarging right pulmonary nodules likely due to metastatic disease. There also mediastinal lymphadenopathy. 3. Multiple bone metastases with partial destruction of the left scapula and probable pathologic fracture right scapula is well/lysis. 4. Hepatosplenomegaly.
[2022-06-18 15:50] LABS: Coronavirus 19, PCR Not Detected (NotDetected); Influenza A, PCR Not Detected (NotDetected); Influenza B, PCR Not Detected (NotDetected)
[2022-06-18 15:58] LABS: Troponin I < 0.01 ng/ml (0.00-0.034)
[2022-06-18 16:14] LABS: C-Reactive Protein 83.5 mg/L (0-4)
[2022-06-18 16:20] LABS: NT Pro Brain Natriuretic Pep. 369 pg/mL (0-125)
[2022-06-18 16:29] LABS: Erythrocyte Sedimentation Rate > 140 mm/hr (0-20)
--- NOTE | 2022-06-18 17:14 | PC.NURSE ---
called for disc so pt can take it with him
[2022-06-18 19:00] LABS: Troponin I < 0.01 ng/ml (0.00-0.034)
== END 2022-06-18 18:44 | disposition home or self-care (01) ==
PROVIDERS: Emergency Provider Emergency Medicine
DX: R09.1 Pleurisy (principal); M25.512 Pain in left shoulder; M54.9 Dorsalgia, unspecified; R06.02 Shortness of breath; Z20.822 Contact with and (suspected) exposure to COVID-19; C61 Malignant neoplasm of prostate; C78.01 Secondary malignant neoplasm of right lung; C77.9 Secondary and unspecified malignant neoplasm of lymph node, unspecified; C79.51 Secondary malignant neoplasm of bone; K59.00 Constipation, unspecified; R11.0 Nausea; R05.9 Cough, unspecified; R16.2 Hepatomegaly with splenomegaly, not elsewhere classified; F17.210 Nicotine dependence, cigarettes, uncomplicated; Z79.1 Long term (current) use of non-steroidal anti-inflammatories (NSAID); Z79.4 Long term (current) use of insulin; Z79.899 Other long term (current) drug therapy; Z79.52 Long term (current) use of systemic steroids; Z88.0 Allergy status to penicillin
CPT/HCPCS: 36415; 71045; 71275; 80048; 83880; 84484; 85025; 85651; 86140; 93005; 96374; 96375; 99285; C9803; J2405; Q9967; U0003; U0005

== ENCOUNTER 2022-06-22 12:25 | Emergency (ER) | payer OTHER, SELFPAY ==
[2022-06-22] VITALS (10 sets, daily range): BP systolic 145–160; BP diastolic 72–107; PULSE 81–99; RESP 18–20; TEMP 36.8; O2SAT 98–100; BMI 32.1
--- NOTE | 2022-06-22 12:50 | PC.NURSE ---
NATALIO HANNAH at BS; SO at BS
--- NOTE | 2022-06-22 12:53 | PC.NURSE ---
at the bedside
--- NOTE | 2022-06-22 12:58 | CT_ITS ---
FINAL REPORT CLINICAL HISTORY: falll, diffuse neck and back pain FINDINGS: Axial CT images of the thoracic spine were obtained without contrast. Sagittal and coronal reformatted images were also obtained. This study was performed with techniques to keep radiation doses as low as reasonably achievable (ALARA). Individualized dose reduction techniques using automated exposure control or adjustment of mA and/or kV according to the patient's size were employed. There is a comminuted nondisplaced fracture of the medial left 3rd rib which is likely pathologic. There is a small associated soft tissue mass. There are masses in both scapulas. The vertebral alignment is stable. There are multiple lytic masses in the thoracic spine consistent with widespread bony metastatic disease. Note is made of multiple noncalcified pulmonary nodules. There is no evidence of significant canal stenosis. No paraspinous soft tissue abnormality is identified. IMPRESSION: Comminuted nondisplaced fracture of the medial left 3rd rib which is likely pathologic. Multiple lytic masses in the thoracic spine consistent with widespread bony metastatic disease. Reviewed, Interpreted and Dictated by Drew Garcia III, MD Transcribed by Liliana Dave Authenticated and [facility]
--- NOTE | 2022-06-22 12:58 | CT_ITS ---
FINAL REPORT CLINICAL HISTORY: falll, diffuse neck and back pain FINDINGS: Axial imaging of the lumbar spine was obtained without contrast. Sagittal and coronal reformatted images were also obtained and reviewed.This study was performed with techniques to keep radiation doses as low as reasonably achievable (ALARA). Individualized dose reduction techniques using automated exposure control or adjustment of mA and/or kV according to the patient's size were employed. There is a subacute fracture of the left L3 transverse process. There are multiple lytic masses in the lumbar spine and pelvis consistent with widespread bony metastatic disease. The vertebral alignment is normal. There are moderate to severe degenerative changes in the lower lumbar spine with vertebral osteophytes, facet arthropathy and multilevel neural foraminal narrowing. There is no evidence of significant central canal stenosis. IMPRESSION: Subacute fracture of the left L3 transverse process. Multiple lytic masses in the lumbar spine and pelvis consistent with widespread bony metastatic disease. Reviewed, Interpreted and Dictated by Drew Garcia III, MD Transcribed by Liliana Dave Authenticated and [facility]
--- NOTE | 2022-06-22 12:58 | CT_ITS ---
FINAL REPORT CLINICAL HISTORY: falll, diffuse neck and back pain FINDINGS: Axial CT images of the cervical spine were obtained without contrast. Sagittal and coronal reformatted images were also obtained. This study was performed with techniques to keep radiation doses as low as reasonably achievable (ALARA). Individualized dose reduction techniques using automated exposure control or adjustment of mA and/or kV according to the patient's size were employed. There is a comminuted nondisplaced fracture of the right mandibular condyle. There is a nondisplaced fracture of the lateral mass of C1 which extends through the transverse foramen. There is a comminuted fracture of the C2 vertebral body which appears to be pathologic. There are multiple lytic masses in the cervical spine consistent with widespread bony metastatic disease The bony alignment is normal. There are moderate degenerative changes with multilevel osteophytes. There is no evidence of canal stenosis. No paraspinous soft tissue abnormality is seen. Limited images of the upper thorax are unremarkable. IMPRESSION: Comminuted nondisplaced fracture of the right mandibular condyle. Nondisplaced fracture of the lateral mass of C1 which extends through the transverse foramen. Comminuted fracture of the C2 vertebral body which appears to be pathologic. Multiple lytic masses in the cervical spine consistent with widespread bony metastatic These findings were reported to the ER physician at 2:07 p.m. on 06/22/2022. Reviewed, Interpreted and Dictated by Drew Garcia III, MD Transcribed by Liliana Dave Authenticated and . [facility]
--- NOTE | 2022-06-22 13:08 | HMH.EDGENADL ---
Discharge Plan Disposition Patient Disposition: Xfer Short-Term Hosp Condition: Serious Prescriptions Prescriptions: No Action bisacodyl 5 mg tablet,delayed release (DR/EC) 5 mg PO HS Qty: 10 0RF magnesium citrate Solution 300 ml PO DAILY PRN (Reason: constipation) Qty: 296 0RF pantoprazole 20 mg tablet,delayed release (DR/EC) 20 mg PO DAILY Qty: 30 2RF sennosides [Natural Senna Laxative] 8.6 mg tablet 8.6 mg PO DAILY Qty: 30 1RF lactulose 20 gram/30 mL solution 30 g PO BID PRN (Reason: constipation) Qty: 1200 0RF valsartan 80 mg tablet 80 mg PO DAILY Label Comments: TAKE 1 TABLET BY MOUTH ONCE DAILY amlodipine [Norvasc] 5 mg tablet 5 mg PO DAILY Qty: 30 5RF oxycodone-acetaminophen [Percocet] 7.5-325 mg tablet 1 tab PO TID PRN (Reason: pain) Qty: 10 0RF (DME) FreeStyle Rosana 14 Day [place] Misc See Rx Instructions MISCELLANE .MEDSUPPLY Qty: 1 0RF Rx Instructions: As directed insulin asp prt-insulin aspart [Novolog Mix 70-30FlexPen U-100] 100 unit/mL (70-30) insulin pen 15 unit SQ BID Qty: 15 10RF alcohol swabs [Alcohol Prep Pads] Pads, Medicated 1 pad TOPICAL TID Qty: 100 3RF metoprolol succinate 50 mg tablet extended release 24 hr 50 mg PO DAILY Qty: 90 3RF oxybutynin chloride 5 mg tablet extended release 24hr 5 mg PO DAILY Qty: 30 2RF (DME) pen needle, diabetic [Droplet Pen Needle] 32 gauge x 3/16 needle See Rx Instructions .ROUTE .MEDSUPPLY Qty: 50 0RF Rx Instructions: As directed Trulicity 0.75 mg/0.5 mL pen injector 0.75 mg SQ WEEKLY Qty: 2 2RF (DME) FreeStyle Rosana 14 Day Sensor Kit See Rx Instructions MISCELLANE .MEDSUPPLY Qty: 1 12RF Rx Instructions: As directed (DME) Accu-Chek Guide test strips Strip See Rx Instructions .Route Qty: 100 2RF Rx Instructions: Test 2-3 times daily or As directed cyclobenzaprine 10 mg tablet See Rx Instructions .ROUTE .COMPLEX Qty: 60 0RF Dose Instruction: Take 1 tablet by mouth three times daily as needed for muscle spasm Rx Instructions: Take 1 tablet by mouth three times daily as needed for muscle spasm simvastatin 10 mg tablet See Rx Instructions .ROUTE .COMPLEX Qty: 90 0RF Dose Instruction: Take 1 tablet by mouth once daily Rx Instructions: Take 1 tablet by mouth once daily ergocalciferol (vitamin D2) 1,250 mcg (50,000 unit) capsule See Rx Instructions .ROUTE .COMPLEX Qty: 7 0RF Dose Instruction: Take 1 capsule by mouth once a week Rx Instructions: Take 1 capsule by mouth once a week oxycodone-acetaminophen [Percocet] 5-325 mg tablet 1 tab PO Q6H PRN (Reason: pain) Qty: 30 0RF omeprazole 20 MG capsule,delayed release(DR/EC) 20 mg PO DAILY azithromycin [azithromycin] 250 mg tablet 250 mg PO DIRECTED Qty: 6 0RF Rx Instructions: Take two (2) tablets on day #1, then one (1) tablet day #2 thru #5 hydrocodone-acetaminophen 5-325 mg tablet 1 tab PO Q6H PRN (Reason: pain) Qty: 10 0RF doxycycline hyclate 100 mg tablet 100 mg PO DAILY Qty: 10 0RF prednisone 50 mg tablet 50 mg PO DAILY 7 Days Qty: 7 0RF benzonatate 100 mg capsule 100 mg PO BID Qty: 30 0RF promethazine 25 mg Tablet 25 mg PO BID PRN (Reason: Nausea) Qty: 10 12RF Referrals Follow up/Referrals: Gibson Delgadillo MD [Primary Care Provider] - See instructions Clinical Impressions Clinical Impression: Closed cervical spine fracture Qualifiers: Encounter type: initial encounter Cervical vertebra fracture level: C1 Fracture morphology: other fracture Fracture alignment: nondisplaced Qualified Code(s): S12.091A - Other nondisplaced fracture of first cervical vertebra, initial encounter for closed fracture Instructions Patient Instructions: DI for Low Back Pain Discharge ED Provider: Hardik Lawrence General Adult [facility] General Chief complaint: Back Pain/Injury Stated
--- NOTE | 2022-06-22 13:40 | PC.NURSE ---
pt going over for ct's
--- NOTE | 2022-06-22 14:01 | PC.NURSE ---
pt returned from CT via stretcher with ct scan special procedures technologist
--- NOTE | 2022-06-22 14:14 | PC.NURSE ---
Waiting on [facility] MDs to call us back
--- NOTE | 2022-06-22 14:15 | PC.NURSE ---
Spoke with Ene in radiology, she is burning an imaging disc
--- NOTE | 2022-06-22 14:29 | CT_ITS ---
FINAL REPORT TECHNIQUE: Multiple axial CT angiography images were performed from the foramen magnum to the vertex before and during IV contrast administration. This study was performed with techniques to keep radiation doses as low as reasonably achievable (ALARA). Individualized dose reduction techniques using automated exposure control or adjustment of mA and/or kV according to the patient's size were employed. CLINICAL HISTORY: cq and c2 injuries, rule out arterial injury FINDINGS: No acute intracranial hemorrhage or large acute cortical infarct. The brain volume is normal for the patient's age. Ventricles are of bracket normal in size and configuration. No midline shift. The basal cisterns are patent. CTA HEAD: The major intracranial arterial system is patent without hemodynamically significant stenosis or major vessel occlusion.No aneurysm is identified. IMPRESSION: No acute intracranial hemorrhage or large acute cortical infarct. No evidence of vascular injury, aneurysm, hemodynamically significant stenosis or major vessel occlusion of the intracranial arterial system. Reviewed, Interpreted and Dictated by Drew Garcia III, MD Transcribed by Malachi Brown Authenticated and [facility]
--- NOTE | 2022-06-22 14:29 | CT_ITS ---
FINAL REPORT CLINICAL HISTORY: fall, head trauma FINDINGS: Axial images of the head were obtained without contrast. Coronal reformatted images were also obtained. This study was performed with techniques to keep radiation doses as low as reasonably achievable (ALARA). Individualized dose reduction techniques using automated exposure control or adjustment of mA and/or kV according to the patient''s size were employed. There is generalized age-appropriate atrophy. Periventricular low-attenuation areas are seen consistent with mild chronic ischemic changes. There is no evidence of intracranial hemorrhage or mass. There is no evidence of acute infarct. There is no evidence of shift of the midline structures. There are several lytic lesions in the skull consistent with bony metastasis or myeloma. Largest lesion is in the right parietal region involving the inner and outer table and extends slightly intracranially. The soft tissue component measures 24 x 22 x 21 mm. There is a 2nd mass with a soft tissue component in the right temporal region. There is mucosal thickening in the maxillary sinuses. IMPRESSION: Atrophy and mild periventricular chronic ischemic changes. No acute intracranial abnormality identified. Multiple lytic lesions in the skull as described consistent with bony metastasis or myeloma. Reviewed, Interpreted and Dictated by Drew Garcia III, MD Transcribed by Malachi Brown Authenticated and [facility]
--- NOTE | 2022-06-22 14:29 | CT_ITS ---
FINAL REPORT TECHNIQUE: Thin section axial CT with IV contrast supplemented with multiplanar reconstruction under CT angiogram protocol. This study was performed with techniques to keep radiation doses as low as reasonably achievable (ALARA). Individualized dose reduction techniques using automated exposure control or adjustment of mA and/or kV according to the patient''s size were employed. NASCET criteria was utilized during interpretation. CLINICAL HISTORY: cq and c2 injuries, rule out arterial injury FINDINGS: Aortic arch: Arch shows no significant narrowing. Great vessel origins are widely patent. Right carotid: No significant stenosis is seen of the cervical common or internal carotid artery. There is mild to moderate plaque at the bulb. Left carotid: No significant stenosis is seen of the cervical common or internal carotid artery. There is [id number] plaque at the bulb. Vertebral: Co-dominant and patent vertebral arteries. No significant stenosis is present. No evidence of vertebral dissection. IMPRESSION: No significant stenosis or occlusion. No evidence of vertebral artery dissection. Reviewed, Interpreted and Dictated by Drew Garcia III, MD Transcribed by Malachi Brown Authenticated and [facility]
[2022-06-22 14:42] LABS: Basophils % 0.5 % (0.1-2.0); Eosinophils % 0.6 % (0.1-12.0); Hematocrit 29.8 % (42.0-52.0); Hemoglobin 9.6 g/dL (14.1-18.0); Lymphocytes # 0.6 K/mm3 (0.7-4.5); Lymphocytes % 21.3 % (10-50); Mean Corpuscular HGB Conc 32.4 g/dL (31.8-35.4); Mean Corpuscular Hemoglobin 29.3 pg (27.0-31.2); Mean Corpuscular Volume 90.7 fl (80-94); Mean Platelet Volume 7.8 fl (7.4-10.4); Monocytes # 0.1 K/mm3 (0.1-1.0); Monocytes % 3.1 % (1.7-9.3); Neutrophils # 2.1 K/mm3 (1.8-7.8); Neutrophils % 74.6 % (37.0-80.0); Platelet Count 311 K/mm3 (142-424); Red Blood Count 3.28 M/mm3 (4.60-6.20); Red Cell Distribution Width 14.6 % (11.5-17.5); White Blood Count 2.8 K/mm3 (4.8-10.8)
[2022-06-22 14:44] LABS: Chloride 101 mmol/L (98-107); Potassium 4.4 mmoL/L (3.5-5.1); Sodium 134 mmol/L (136-145)
[2022-06-22 14:47] LABS: Anion Gap 10.4 mEq/L (5-15); Blood Urea Nitrogen 12 mg/dl (9-20); Calcium 10.1 mg/dl (8.4-10.2); Carbon Dioxide 27 mmol/L (22.0-30.0); Creatinine Clearance Estimated 110 mL/min (50-200); Estimated Glomerular Filt Rate 97 ml/min (>60); GFR (African American) 118 ML/MIN (>60); Glucose 91 mg/dl (74-100)
--- NOTE | 2022-06-22 15:16 | HMH.ITSTN ---
SPOKE WITH TODD IN ER ABOUT PATIENT NEEDING ANOTHER IV FOR CTA.
--- NOTE | 2022-06-22 15:25 | PC.NURSE ---
Calling [facility] to check status of Spine team consulting us and calling us back. She reports we are still on the wait list to be called back. ER notified.
--- NOTE | 2022-06-22 16:24 | PC.NURSE ---
NATALIO HANNAH speaking with [facility] at this time
== END 2022-06-22 17:44 | disposition short-term general hospital (02) ==
PROVIDERS: Emergency Provider Emergency Medicine; PCP Emergency Medicine
DX: M54.50 Low back pain, unspecified (principal); M54.6 Pain in thoracic spine; S02.609A Fracture of mandible, unspecified, initial encounter for closed fracture; S22.32XA Fracture of one rib, left side, initial encounter for closed fracture; R94.31 Abnormal electrocardiogram [ECG] [EKG]; R53.1 Weakness; R11.0 Nausea; D72.819 Decreased white blood cell count, unspecified; I10 Essential (primary) hypertension; E78.5 Hyperlipidemia, unspecified; C61 Malignant neoplasm of prostate; C79.51 Secondary malignant neoplasm of bone; K59.00 Constipation, unspecified; M79.10 Myalgia, unspecified site; G89.29 Other chronic pain; W19.XXXA Unspecified fall, initial encounter
CPT/HCPCS: 70450; 70496; 70498; 72125; 72128; 72131; 80048; 85025; 96374; 99285; Q9967

== ENCOUNTER 2022-07-05 21:51 | Emergency (ER) | payer OTHER, SELFPAY ==
[2022-07-06 02:05] VITALS: BP 151/87; PULSE 103; RESP 18; TEMP 36.8; O2SAT 98; BMI 32.8
--- NOTE | 2022-07-06 03:33 | HMH.EDGENADL ---
Discharge Plan Disposition Patient Disposition: Home, Self-Care Chief Complaint: PAIN Prescriptions Prescriptions: No Action bisacodyl 5 mg tablet,delayed release (DR/EC) 5 mg PO HS Qty: 10 0RF magnesium citrate Solution 300 ml PO DAILY PRN (Reason: constipation) Qty: 296 0RF pantoprazole 20 mg tablet,delayed release (DR/EC) 20 mg PO DAILY Qty: 30 2RF sennosides [Natural Senna Laxative] 8.6 mg tablet 8.6 mg PO DAILY Qty: 30 1RF lactulose 20 gram/30 mL solution 30 g PO BID PRN (Reason: constipation) Qty: 1200 0RF valsartan 80 mg tablet 80 mg PO DAILY Label Comments: TAKE 1 TABLET BY MOUTH ONCE DAILY amlodipine [Norvasc] 5 mg tablet 5 mg PO DAILY Qty: 30 5RF oxycodone-acetaminophen [Percocet] 7.5-325 mg tablet 1 tab PO TID PRN (Reason: pain) Qty: 10 0RF (DME) FreeStyle Rosana 14 Day [place] Misc See Rx Instructions MISCELLANE .MEDSUPPLY Qty: 1 0RF Rx Instructions: As directed insulin asp prt-insulin aspart [Novolog Mix 70-30FlexPen U-100] 100 unit/mL (70-30) insulin pen 15 unit SQ BID Qty: 15 10RF alcohol swabs [Alcohol Prep Pads] Pads, Medicated 1 pad TOPICAL TID Qty: 100 3RF metoprolol succinate 50 mg tablet extended release 24 hr 50 mg PO DAILY Qty: 90 3RF oxybutynin chloride 5 mg tablet extended release 24hr 5 mg PO DAILY Qty: 30 2RF (DME) pen needle, diabetic [Droplet Pen Needle] 32 gauge x 3/16 needle See Rx Instructions .ROUTE .MEDSUPPLY Qty: 50 0RF Rx Instructions: As directed Trulicity 0.75 mg/0.5 mL pen injector 0.75 mg SQ WEEKLY Qty: 2 2RF (DME) FreeStyle Rosana 14 Day Sensor Kit See Rx Instructions MISCELLANE .MEDSUPPLY Qty: 1 12RF Rx Instructions: As directed (DME) Accu-Chek Guide test strips Strip See Rx Instructions .Route Qty: 100 2RF Rx Instructions: Test 2-3 times daily or As directed cyclobenzaprine 10 mg tablet See Rx Instructions .ROUTE .COMPLEX Qty: 60 0RF Dose Instruction: Take 1 tablet by mouth three times daily as needed for muscle spasm Rx Instructions: Take 1 tablet by mouth three times daily as needed for muscle spasm simvastatin 10 mg tablet See Rx Instructions .ROUTE .COMPLEX Qty: 90 0RF Dose Instruction: Take 1 tablet by mouth once daily Rx Instructions: Take 1 tablet by mouth once daily ergocalciferol (vitamin D2) 1,250 mcg (50,000 unit) capsule See Rx Instructions .ROUTE .COMPLEX Qty: 7 0RF Dose Instruction: Take 1 capsule by mouth once a week Rx Instructions: Take 1 capsule by mouth once a week oxycodone-acetaminophen [Percocet] 5-325 mg tablet 1 tab PO Q6H PRN (Reason: pain) Qty: 30 0RF omeprazole 20 MG capsule,delayed release(DR/EC) 20 mg PO DAILY azithromycin [azithromycin] 250 mg tablet 250 mg PO DIRECTED Qty: 6 0RF Rx Instructions: Take two (2) tablets on day #1, then one (1) tablet day #2 thru #5 hydrocodone-acetaminophen 5-325 mg tablet 1 tab PO Q6H PRN (Reason: pain) Qty: 10 0RF doxycycline hyclate 100 mg tablet 100 mg PO DAILY Qty: 10 0RF prednisone 50 mg tablet 50 mg PO DAILY 7 Days Qty: 7 0RF benzonatate 100 mg capsule 100 mg PO BID Qty: 30 0RF promethazine 25 mg Tablet 25 mg PO BID PRN (Reason: Nausea) Qty: 10 12RF Referrals Follow up/Referrals: Gibson Delgadillo MD [Primary Care Provider] - See instructions Clinical Impressions Clinical Impression: Acute neck pain Instructions Patient Instructions: DI for Acute Pain -- Adult Discharge ED Provider: Gibson Delgadillo General Adult HPI General Chief complaint: PAIN Stated complaint: neck LT shoulder,pain, bone cancer pt Time Seen by Provider: 07/06/22 00:10 Mode of Arrival: Ambulatory Source of Information: Patient, Significant Other and Medical Record Limitations: No Limitations Description of Symptoms (Recalled from ER Triage Doc. by RN): Pt c/o left arm pain
[2022-07-06 03:39] VITALS: BP 148/85; PULSE 89; RESP 17; TEMP 36.6; O2SAT 97
--- NOTE | 2022-07-06 04:09 | PC.NURSE ---
d/t downtime: saw pt @ [id number] & d/c time is 7670.
== END 2022-07-06 04:08 | disposition home or self-care (01) ==
PROVIDERS: Emergency Provider Emergency Medicine; PCP Emergency Medicine
DX: M54.2 Cervicalgia (principal); M25.512 Pain in left shoulder; F17.210 Nicotine dependence, cigarettes, uncomplicated
CPT/HCPCS: 96372; 99284

== ENCOUNTER 2022-07-11 11:17 | Emergency (ER) | payer OTHER, SELFPAY ==
[2022-07-11 11:25] VITALS: BP 167/105; PULSE 100; RESP 18; TEMP 36.7; O2SAT 99; BMI 32.8
[2022-07-11 11:30] VITALS: BP 186/114; PULSE 102; RESP 18; O2SAT 97
--- NOTE | 2022-07-11 11:46 | CT_ITS ---
FINAL REPORT CLINICAL HISTORY: chest pain COMPARISON: June 2022 FINDINGS: Axial images were obtained from the lung apex to the mid abdomen by computed tomography after the administration of IV contrast. Coronal reformatted images were obtained. This study was performed with techniques to keep radiation doses as low as reasonably achievable, (ALARA). Individualized dose reduction techniques using automated exposure control or adjustment of mA and/or kV according to the patient's size were employed. There is no axillary adenopathy. There are multiple borderline size mediastinal lymph nodes. Heart size is normal. There is no pericardial or pleural effusion. There are multiple noncalcified pulmonary nodules worrisome for neoplastic involvement. There is scarring in the left anterior lung. There are multiple bony mass is including the ribs, scapula and vertebrae. There are multiple bilateral pathologic rib fractures. There is a pathologic fracture of the inferior left scapula. IMPRESSION: Multiple bony masses worrisome for bony metastasis versus myeloma. Multiple noncalcified pulmonary nodules worrisome for neoplastic involvement. Reviewed, Interpreted and Dictated by Drew Garcia III, MD Transcribed by Malachi Brown Authenticated and [facility]
--- NOTE | 2022-07-11 11:46 | CT_ITS ---
FINAL REPORT TECHNIQUE: Thin section axial CT with IV contrast supplemented with multiplanar reconstruction under CT angiogram protocol. 3-D reconstructions were performed. This study was performed with techniques to keep radiation doses as low as reasonably achievable (ALARA). Individualized dose reduction techniques using automated exposure control or adjustment of mA and/or kV according to the patient''s size were employed. CLINICAL HISTORY: concern for CVA, stroke FINDINGS: No aneurysm is seen. Major intracranial vessels are patent without significant stenosis. IMPRESSION: No evidence of significant stenosis. Reviewed, Interpreted and Dictated by Drew Garcia III, MD Transcribed by Deanne Pillai Authenticated and [facility]
--- NOTE | 2022-07-11 11:46 | CT_ITS ---
FINAL REPORT TECHNIQUE: Thin section axial CT with IV contrast supplemented with multiplanar reconstruction under CT angiogram protocol. This study was performed with techniques to keep radiation doses as low as reasonably achievable (ALARA). Individualized dose reduction techniques using automated exposure control or adjustment of mA and/or kV according to the patient''s size were employed. NASCET criteria was utilized during interpretation. CLINICAL HISTORY: concern for CVA FINDINGS: Aortic arch: Arch shows no significant narrowing. Great vessel origins are widely patent. Right carotid: No significant stenosis is seen of the cervical common or internal carotid artery. Left carotid: No significant stenosis is seen of the cervical common or internal carotid artery. There is mild calcified plaque at the carotid bulbs bilaterally. Vertebral: Left vertebral artery is dominant. No significant stenosis is present. IMPRESSION: No evidence of significant stenosis. Reviewed, Interpreted and Dictated by Drew Garcia III, MD Transcribed by Deanne Pillai Authenticated and [facility]
--- NOTE | 2022-07-11 11:46 | CT_ITS ---
FINAL REPORT TECHNIQUE: Postcontrast axial images through the abdomen and pelvis were performed. This study was performed with techniques to keep radiation doses as low as reasonably achievable, (ALARA). Individualized dose reduction techniques using automated exposure control or adjustment of mA and/or kV according to the patient's size were employed. CLINICAL HISTORY: epigastric pain FINDINGS: Abdomen: A small right pleural effusion is noted. The liver has an irregular contour worrisome for cirrhosis. There is a mass in the left hepatic lobe measuring up to 7.6 cm likely representing neoplastic involvement. There is splenomegaly with the spleen measuring up to 19 cm in length. There is evidence of cholecystectomy. The adrenals are normal. The pancreas is unremarkable. There are multiple renal masses consistent with cysts. There is a 15 mm mass in the inferior pole the right kidney that is not a simple cyst and could be a complex cyst versus neoplasm. The aorta is normal in caliber. There is upper abdomen adenopathy. There is mild anasarca. Pelvis: The appendix is not identified. There is colon wall thickening likely representing edema. The urinary bladder is unremarkable. There is a small amount of free fluid. Postoperative changes are seen in the right hip. There are masses in the lumbar spine and bilateral pelvis. IMPRESSION: Upper abdomen adenopathy. Multiple bony masses. Bony metastasis versus myeloma. Cirrhosis with a 7 cm left hepatic mass likely representing neoplasm. Splenomegaly. Lower pole right renal mass. Complex cyst versus neoplasm. Colon wall thickening likely representing edema. Reviewed, Interpreted and Dictated by Drew Garcia III, MD Transcribed by Malachi Brown Authenticated and [facility]
--- NOTE | 2022-07-11 11:46 | CT_ITS ---
FINAL REPORT CLINICAL HISTORY: stroke, fall COMPARISON: June 2022 FINDINGS: Axial images of the head were obtained without contrast. Coronal reformatted images were also obtained. This study was performed with techniques to keep radiation doses as low as reasonably achievable (ALARA). Individualized dose reduction techniques using automated exposure control or adjustment of mA and/or kV according to the patient''s size were employed. There is generalized age-appropriate atrophy. Periventricular low-attenuation areas are seen consistent with mild chronic ischemic changes. There is no evidence of intracranial hemorrhage or mass. There is no evidence of acute infarct. There is no evidence of shift of the midline structures. There are several lytic lesions in the skull which have increased in size consistent with bony metastasis or myeloma. Largest lesion is in the right parietal region involving the inner and outer table and extends slightly intracranially. The soft tissue component measures 24 x 22 x 21 mm. There is a 2nd mass with a soft tissue component in the right temporal region. There is moderate mucosal thickening in the right maxillary Sinus. IMPRESSION: Atrophy and mild periventricular chronic ischemic changes. No acute intracranial abnormality identified. Multiple lytic lesions in the skull as described consistent with bony metastasis or myeloma, increased in size. Reviewed, Interpreted and Dictated by Drew Garcia III, MD Transcribed by Malachi Brown Authenticated and [facility]
--- NOTE | 2022-07-11 11:51 | CT_ITS ---
FINAL REPORT CLINICAL HISTORY: eval known fracture for worsening COMPARISON: June 2022 FINDINGS: CT CERVICAL SPINE Axial CT images were performed through the cervical spine. Coronal and sagittal reformats were submitted and reviewed. This study was performed with techniques to keep radiation doses as low as reasonably achievable (ALARA). Individualized dose reduction techniques using automated exposure control or adjustment of mA and/or kV according to the patient's size were employed. FINDINGS: There are multiple lytic lesions consistent with myeloma or Mets. There is a pathologic fracture of the C2 vertebral body that is not significantly changed. There is a new nondisplaced fracture of the C7 vertebral body consistent with a pathologic fracture. There is multilevel moderate degenerative change. There is no significant canal stenosis. Vertebral alignment is normal. IMPRESSION: New nondisplaced fracture of the C7 vertebral body consistent with pathologic fracture. Stable pathologic fracture of the C2 vertebral body. Lytic lesions consistent with myeloma or metastatic disease. Reviewed, Interpreted and Dictated by Drew Garcia III, MD Transcribed by Malachi Brown Authenticated and [facility]
--- NOTE | 2022-07-11 11:53 | XR_ITS ---
FINAL REPORT CLINICAL HISTORY: eval for pathologic fx FINDINGS: LEFT SHOULDER Three views demonstrate a mass in the inferior scapula with a presumed pathologic fracture. There are mild degenerative changes. IMPRESSION: Presumed pathologic fracture in the inferior scapula. Reviewed, Interpreted and Dictated by Drew Garcia III, MD Transcribed by Malachi Brown Authenticated and [facility]
--- NOTE | 2022-07-11 11:53 | XR_ITS ---
FINAL REPORT CLINICAL HISTORY: eval for pathologic fx FINDINGS: 2 views of the left humerus were obtained. There is a probable lytic lesion in the proximal humeral diaphysis worrisome for neoplastic involvement. There is no acute fracture or dislocation. The joint spaces appear intact. There is no acute soft tissue abnormality. IMPRESSION: Probable lytic lesion in the proximal humeral diaphysis worrisome for neoplastic involvement. Reviewed, Interpreted and Dictated by Drew Garcia III, MD Transcribed by Malachi Brown Authenticated and [facility]
[2022-07-11 11:59] LABS: Basophils % 0.8 % (0.1-2.0); Eosinophils % 0.6 % (0.1-12.0); Hematocrit 31.3 % (42.0-52.0); Lymphocytes # 0.4 K/mm3 (0.7-4.5); Lymphocytes % 19.4 % (10-50); Mean Corpuscular HGB Conc 32.1 g/dL (31.8-35.4); Mean Corpuscular Hemoglobin 30.3 pg (27.0-31.2); Mean Corpuscular Volume 94.3 fl (80-94); Mean Platelet Volume 7.6 fl (7.4-10.4); Monocytes # 0.1 K/mm3 (0.1-1.0); Monocytes % 5.7 % (1.7-9.3); Neutrophils # 1.5 K/mm3 (1.8-7.8); Neutrophils % 73.4 % (37.0-80.0); Platelet Count 264 K/mm3 (142-424); Red Blood Count 3.31 M/mm3 (4.60-6.20); Red Cell Distribution Width 15.4 % (11.5-17.5); White Blood Count 2.1 K/mm3 (4.8-10.8)
[2022-07-11 12:00] VITALS: BP 157/90; PULSE 100; RESP 18; O2SAT 96
[2022-07-11 12:07] LABS: Activated Partial Thrombo Time 31.3 seconds (22.8-30.6); INR 1.19 (0.9-1.1); Prothrombin Time 12.7 seconds (10.1-12.5)
[2022-07-11 12:09] LABS: Alanine Aminotransferase 46 U/L (12-78); Albumin Level 3.6 g/dl (3.5-5.0); Albumin/Globulin Ratio 0.7 (1.1-1.8); Alkaline Phosphatase 587 U/L (38-126); Anion Gap 12.9 mEq/L (5-15); Aspartate Amino Transferase 87 U/L (17-59); Blood Urea Nitrogen 15 mg/dl (9-20); Calcium 10.4 mg/dl (8.4-10.2); Carbon Dioxide 24 mmol/L (22.0-30.0); Chloride 104 mmol/L (98-107); Creatinine Clearance Estimated 113 mL/min (50-200); Estimated Glomerular Filt Rate 97 ml/min (>60); GFR (African American) 118 ML/MIN (>60); Globulin 5.5 g/dL (1.3-3.2); Glucose 103 mg/dl (74-100); Potassium 3.9 mmoL/L (3.5-5.1); Sodium 137 mmol/L (136-145); Total Protein,Serum 9.1 g/dl (6.3-8.2)
--- NOTE | 2022-07-11 12:11 | HMH.EDGENADL ---
Discharge Plan Disposition Patient Disposition: Home, Self-Care Condition: Fair Prescriptions Prescriptions: No Action bisacodyl 5 mg tablet,delayed release (DR/EC) 5 mg PO HS Qty: 10 0RF magnesium citrate Solution 300 ml PO DAILY PRN (Reason: constipation) Qty: 296 0RF pantoprazole 20 mg tablet,delayed release (DR/EC) 20 mg PO DAILY Qty: 30 2RF sennosides [Natural Senna Laxative] 8.6 mg tablet 8.6 mg PO DAILY Qty: 30 1RF lactulose 20 gram/30 mL solution 30 g PO BID PRN (Reason: constipation) Qty: 1200 0RF valsartan 80 mg tablet 80 mg PO DAILY Label Comments: TAKE 1 TABLET BY MOUTH ONCE DAILY amlodipine [Norvasc] 5 mg tablet 5 mg PO DAILY Qty: 30 5RF oxycodone-acetaminophen [Percocet] 7.5-325 mg tablet 1 tab PO TID PRN (Reason: pain) Qty: 10 0RF (DME) FreeStyle Rosana 14 Day [place] Misc See Rx Instructions MISCELLANE .MEDSUPPLY Qty: 1 0RF Rx Instructions: As directed insulin asp prt-insulin aspart [Novolog Mix 70-30FlexPen U-100] 100 unit/mL (70-30) insulin pen 15 unit SQ BID Qty: 15 10RF alcohol swabs [Alcohol Prep Pads] Pads, Medicated 1 pad TOPICAL TID Qty: 100 3RF metoprolol succinate 50 mg tablet extended release 24 hr 50 mg PO DAILY Qty: 90 3RF oxybutynin chloride 5 mg tablet extended release 24hr 5 mg PO DAILY Qty: 30 2RF (DME) pen needle, diabetic [Droplet Pen Needle] 32 gauge x 3/16 needle See Rx Instructions .ROUTE .MEDSUPPLY Qty: 50 0RF Rx Instructions: As directed Trulicity 0.75 mg/0.5 mL pen injector 0.75 mg SQ WEEKLY Qty: 2 2RF (DME) FreeStyle Rosana 14 Day Sensor Kit See Rx Instructions MISCELLANE .MEDSUPPLY Qty: 1 12RF Rx Instructions: As directed (DME) Accu-Chek Guide test strips Strip See Rx Instructions .Route Qty: 100 2RF Rx Instructions: Test 2-3 times daily or As directed cyclobenzaprine 10 mg tablet See Rx Instructions .ROUTE .COMPLEX Qty: 60 0RF Dose Instruction: Take 1 tablet by mouth three times daily as needed for muscle spasm Rx Instructions: Take 1 tablet by mouth three times daily as needed for muscle spasm simvastatin 10 mg tablet See Rx Instructions .ROUTE .COMPLEX Qty: 90 0RF Dose Instruction: Take 1 tablet by mouth once daily Rx Instructions: Take 1 tablet by mouth once daily ergocalciferol (vitamin D2) 1,250 mcg (50,000 unit) capsule See Rx Instructions .ROUTE .COMPLEX Qty: 7 0RF Dose Instruction: Take 1 capsule by mouth once a week Rx Instructions: Take 1 capsule by mouth once a week oxycodone-acetaminophen [Percocet] 5-325 mg tablet 1 tab PO Q6H PRN (Reason: pain) Qty: 30 0RF omeprazole 20 MG capsule,delayed release(DR/EC) 20 mg PO DAILY azithromycin [azithromycin] 250 mg tablet 250 mg PO DIRECTED Qty: 6 0RF Rx Instructions: Take two (2) tablets on day #1, then one (1) tablet day #2 thru #5 hydrocodone-acetaminophen 5-325 mg tablet 1 tab PO Q6H PRN (Reason: pain) Qty: 10 0RF doxycycline hyclate 100 mg tablet 100 mg PO DAILY Qty: 10 0RF prednisone 50 mg tablet 50 mg PO DAILY 7 Days Qty: 7 0RF benzonatate 100 mg capsule 100 mg PO BID Qty: 30 0RF promethazine 25 mg Tablet 25 mg PO BID PRN (Reason: Nausea) Qty: 10 12RF Referrals Follow up/Referrals: Gibson Delgadillo MD [Primary Care Provider] - See instructions Activity Restrictions/Add. Instructions Additional Instructions/Restrictions: [facility] for [facility]. Clinical Impressions Clinical Impression: Pathologic cervical vertebral fracture, Cervical radiculopathy Instructions Patient Instructions: Bone Cancer Discharge ED Provider: Nahid Briones General Adult HPI General Chief complaint: Extremity Problem,Nontraumatic Stated complaint: L ARM PAIN Time Seen by Provider: 07/11/22 11:30 Mode of Arrival: EMS Source
--- NOTE | 2022-07-11 12:16 | PC.NURSE ---
urinal and blanket provided to the pt. at the bedside
[2022-07-11 12:30] VITALS: BP 160/91; PULSE 102; RESP 20; O2SAT 96
--- NOTE | 2022-07-11 12:42 | PC.NURSE ---
jordon chaudhari called Dr Briones back to CT room
--- NOTE | 2022-07-11 13:37 | PC.NURSE ---
verbal order for pain medication given by
[2022-07-11 15:24] VITALS: BP 161/89; PULSE 101; RESP 20; TEMP 36.7; O2SAT 97
== END 2022-07-11 15:27 | disposition home or self-care (01) ==
PROVIDERS: Emergency Provider Student in an Organized Health Care Education/Training Program; PCP Emergency Medicine
DX: M84.48XA Pathological fracture, other site, initial encounter for fracture (principal); M54.16 Radiculopathy, lumbar region; W19.XXXA Unspecified fall, initial encounter; Z87.19 Personal history of other diseases of the digestive system; E78.5 Hyperlipidemia, unspecified; J44.9 Chronic obstructive pulmonary disease, unspecified; I10 Essential (primary) hypertension; E11.9 Type 2 diabetes mellitus without complications; Z85.9 Personal history of malignant neoplasm, unspecified
CPT/HCPCS: 70450; 70496; 70498; 71260; 72125; 73030; 73060; 74177; 80053; 85025; 85610; 85730; 99285; Q9967